=== PATIENT | male | born 1940 ===

== ENCOUNTER 2018-04-14 09:53 | Inpatient (IN) | payer MEDICARE ==
[2018-04-14 10:04] VITALS: BMI 19.2
[2018-04-14] MEDS ORDERED: Sodium Chloride 0.9% 1,000 ML IV ONE ×5 (10:06→18:55)
[2018-04-14] MEDS ORDERED: Pantoprazole 80 MG in Sodium Chloride 0.9% 100 ML IV STA (10:06)
--- NOTE | 2018-04-14 10:11 | C.PDOC ---
History Of Present Illness 77 y/o M p/w rectal bleeding. Patient BIBEMS with generalized weakness, apparently since this morning, was complaining of abdominal pain last night and took laxative and had bowel movements with blood. Patient is lethargic but answers questions appropriately. Full HPI/ROS unobtainable due to patient's condition. Time Seen by Provider: 04/14/18 10:03 Chief Complaint (Nursing): Altered Mental Status Past Medical History Vital Signs: Last Vital Signs Temp 99.8 F H 04/14/18 10:04 Pulse 119 H 04/14/18 10:04 Resp 15 04/14/18 10:04 BP 155/90 H 04/14/18 10:04 Pulse Ox 100 04/14/18 10:04 - Medical History PMH: Back Problems, HTN, Hypercholesterolemia, Hyperlipidemia, Obstructive Bowel, Chronic Pain (back and neck) Denies: Chronic Kidney Disease Surgical History: Appendectomy Family History: States: Unknown Family Hx - Social History Hx Tobacco Use: No Hx Alcohol Use: No Hx Substance Use: No - Immunization History Hx Tetanus Toxoid Vaccination: No Hx Influenza Vaccination: Yes Hx Pneumococcal Vaccination: No Review Of Systems Except As Marked, All Systems Reviewed And Found Negative. Constitutional: Negative for: Fever Cardiovascular: Negative for: Chest Pain Physical Exam - Physical Exam Additional Physical Exam Comments: Gen: Generally weak Head: NC/AT Eyes: PERRL ENT: MMM Neck: Supple Chest: No tenderness CV: Tachycardic Lungs: CTA b/l Abd: Umbilical hernia. No tenderness Back: No midline tenderness Rectal: Guaiac positive black stool Extremities: No edema Skin: No rash Neuro: Lethargic but awake, answers questions appropriately. No focal deficit. ED Course And Treatment - Laboratory Results Result Diagrams: 04/14/18 10:31 04/14/18 10:31 O2 Sat by Pulse Oximetry: 100 Medical Decision Making Medical Decision Making: EKG Sinus rhythm, 118 bpm, no ST elevations. PVCs. CT abd/pelvis with IV contrast IMPRESSION: Evaluation of the bowel is limited in the absence of oral contrast. Moderate dil atation of fluid-filled stomach and proximal and mid small bowel loops. The distal small bowel loops are decompressed. Findings are nonspecific and could be related to developing acute small bowel obstruction or nonspecific acute infectious/inflammatory enteritis. Colonic diverticulosis without CT evidence for acute diverticulitis. HR improving. Dr. Khan accepts patient for GI bleed, will likely require blood transfusion. Disposition Discussed With : Odalys Khan - Disposition Disposition: HOSPITALIZED Disposition Time: 12:26 Condition: GUARDED Forms: [facility] ([place]) - Clinical Impression Clinical Impression: GI bleed
[2018-04-14 10:42] LABS: BASO % 0.3 % (0.0-2.0); HEMOGLOBIN 8.4 g/dL (12.0-18.0); LYMPH % 7.8 % (20.0-40.0); MEAN CELL VOLUME 97.6 fL (80.0-94.0); MEAN CORPUSCULAR HEMOGLOBIN 32.4 pg (27.0-31.0); MEAN CORPUSCULAR HGB CONC 33.2 g/dL (33.0-37.0); MEAN PLATELET VOLUME 7.4 fL (7.2-11.7); MONO # 0.6 K/uL (0.0-0.8); MONO % 4.7 % (0.0-10.0); NEUT # 11.3 K/uL (1.8-7.0); NEUT % 87.2 % (50.0-75.0); PLATELET COUNT 290 K/uL (130-400); RBC 2.58 Mil/uL (4.40-5.90); RED CELL DISTRIBUTION WIDTH 12.9 % (11.5-14.5); WHITE BLOOD COUNT 12.9 K/uL (4.8-10.8)
[2018-04-14 10:50] LABS: INR 1.3; PROTHROMBIN TIME 14.2 SECONDS (9.7-12.2)
[2018-04-14 10:56] LABS: SQUAMOUS EPITHIAL < 1 /hpf (0-5); URINE BILIRUBIN NEGATIVE (NEGATIVE); URINE BLOOD NEGATIVE (NEGATIVE); URINE CLARITY Clear (Clear); URINE COLOR Straw (YELLOW); URINE GLUCOSE (UA) NORMAL (Normal); URINE LEUKOCYTE ESTERASE NEG Leu/uL (Negative); URINE PROTEIN NEGATIVE (NEGATIVE); URINE UROBILINOGEN NORMAL mg/dL (0.2-1.0)
[2018-04-14 11:13] LABS: ALB/GLOB RATIO 1.2 (1.0-2.1); ALT/SGPT 21 U/L (21-72); AST/SGOT 26 U/L (17-59); BLOOD UREA NITROGEN 61 mg/dL (9-20); GFR NON-AFRICAN AMERICAN > 60; LIPASE 61 U/L (23-300)
[2018-04-14 11:25] LABS: LYMPHOCYTE 8 % (20-40); MONOCYTE 2 % (0-10); NEUTROPHIL 90 % (50-75); TOTAL CELLS COUNTED 100
[2018-04-14 11:26] LABS: PLATELET ESTIMATE NORMAL (NORMAL)
[2018-04-14 11:28] LABS: HYPOCHROMIC SLIGHT; POLYCHROMIC SLIGHT
[2018-04-14] MEDS ORDERED: Iodixanol 320 MG/ML 100 ML BOTTLE IV ONE (11:56)
--- NOTE | 2018-04-14 13:21 | CT ---
Date of service: 04/14/2018 PROCEDURE: CT Abdomen and Pelvis with contrast HISTORY: GI Bleeding COMPARISON: 12/06/2012 TECHNIQUE: CT scan of the abdomen and pelvis was performed after administration of intravenous contrast. Oral contrast was not administered. Coronal and sagittal reformatted images were obtained. Contrast dose: 100 mL Visipaque 320 Radiation dose: Total exam DLP = 763.82 mGy-cm. This CT exam was performed using one or more of the following dose reduction techniques: Automated exposure control, adjustment of the mA and/or kV according to patient size, and/or use of iterative reconstruction technique. FINDINGS: LOWER THORAX: The visualized lungs are clear. LIVER: Normal in size with homogeneous enhancement. No gross lesion or ductal dilatation. GALLBLADDER AND BILE DUCTS: Well distended. No calcified gallstones, wall thickening or pericholecystic fluid. PANCREAS: Normal in size with homogeneous enhancement. 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 No gross lesion or ductal dilatation. SPLEEN: Normal in size and appearance. For ADRENALS: No discrete nodule. KIDNEYS AND URETERS: Normal in size with homogeneous enhancement. Small low-attenuation lesions in the kidneys are too small to characterize by CT criteria. There is a cortical scar in the right lower pole. No hydronephrosis. No solid mass. VASCULATURE: No aortic aneurysm. Atherosclerotic aortoiliac calcifications and mural plaques are present. BOWEL: Evaluation of the bowel is limited in the absence of oral contrast. There is a fluid-filled distended stomach. There is moderate dilatation of fluid-filled proximal and mid small bowel loops. The distal small bowel loops are decompressed. The colon is essentially decompressed. There are extensive colonic diverticula without CT evidence for acute diverticulitis. APPENDIX: Normal appendix. PERITONEUM: No free fluid. No free air. LYMPH NODES: No enlarged lymph nodes. BLADDER: Well distended and normal in appearance. REPRODUCTIVE: The prostate gland is normal in size with right posterior coarse calcifications. BONES: No acute fracture. Within normal limits for the patient's age. OTHER FINDINGS: There is a small right posterior Bochdalek hernia IMPRESSION: Evaluation of the bowel is limited in the absence of oral contrast. Moderate dilatation of fluid-filled stomach and proximal and mid small bowel loops. The distal small bowel loops are decompressed. Findings are nonspecific and could be related to developing acute small bowel obstruction or nonspecific acute infectious/inflammatory enteritis. Colonic diverticulosis without CT evidence for acute diverticulitis.
--- NOTE | 2018-04-14 14:37 | RAD ---
Date of service: 04/14/2018 PROCEDURE: CHEST RADIOGRAPH, 1 VIEW HISTORY: GI Bleeding COMPARISON: 08/31/2016 FINDINGS: LUNGS: The lungs are well inflated and clear. PLEURA: No pneumothorax or pleural effusion. CARDIOVASCULAR: The heart is normal in size. No aortic atherosclerotic calcifications present. OSSEOUS STRUCTURES: Within normal limits for the patient's age. VISUALIZED UPPER ABDOMEN: Normal. OTHER FINDINGS: None. IMPRESSION: No active pulmonary disease.
--- NOTE | 2018-04-14 16:03 | CP.PCM.PN ---
Subjective - Date & Time of Evaluation Date of Evaluation: 04/14/18 Time of Evaluation: 03:50 - Subjective Subjective: I spoke with patient's daughter. She reports he has chronic constipation, prior history of gi bleeding ulcer, he required emergent surgery [facility] [place], [place] 4 years ago, cervical fusion, and lumbar stenosis. Patient is chronically on pain medications but denies NSAIDs; he had stopped Motrin 800mg 4 years ago. Patient does have pain management doctor as outpatient. Patient's primary Reisner. Patient had refused to go the hospital. He had called the niece, reports he had been bleeding all night and his was unable to call. She reports he was fading in and out. Niece called 911, accompanied the patient, and brought to the hospital. 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 Hardin, Dr. Best: GI General: lethargic, Alert, awake HEENT: no dentures. clinically dry Chest: CTA b/l no Abdomen: soft, tender to palpation, diffuse pain, pulsatile mass, visible hernia, nondistended Rectal; Visible black stool Extremities: palpable pulses, no edema, no cyanosis, no clubbing Objective - Vital Signs/Intake and Output Vital Signs (last 24 hours): Temp Pulse Resp BP Pulse Ox 97.1 F L 114 H 21 171/83 H 98 04/14/18 14:38 04/14/18 14:38 04/14/18 14:38 04/14/18 14:38 04/14/18 14:38 Intake and Output: 04/14/18 04/14/18 06:59 18:59 Intake Total 1100 Output Total 900 Balance 200 - Medications Medications: Current Medications Sodium Chloride (Sodium Chloride 0.9%) 1,000 mls @ 1,000 mls/hr IV .Q1H ONE Stop: 04/14/18 16:23 Pantoprazole Sodium 80 mg/ (Sodium Chloride) 100 mls @ 10 mls/hr IVPB .Q10H RALF - Labs Labs: 04/14/18 10:31 04/14/18 10:31 PT 14.2 SECONDS (9.7-12.2) H 04/14/18 10:31 INR 1.3 04/14/18 10:31 APTT 31 SECONDS (21-34) 04/14/18 10:31 - Constitutional Appears: In Acute Distress, Unkempt, Agitated, Confused - Head Exam Head Exam: NORMAL INSPECTION - Eye Exam Eye Exam: EOMI - ENT Exam ENT Exam: Mucous Membranes Dry - Respiratory Exam Respiratory Exam: Clear to Ausculation Bilateral, NORMAL BREATHING PATTERN. absent: Rales, Rhonchi, Wheezes - Cardiovascular Exam Cardiovascular Exam: Tachycardia, +S1, +S2 - GI/Abdominal Exam GI & Abdominal Exam: Guarding, Soft, Normal Bowel Sounds, Pulsatile Mass, Rebound. absent: Distended, Rigid - Extremities Exam Extremities Exam: absent: Pedal Edema, Tenderness - Neurological Exam Neurological Exam: Alert, Awake - Psychiatric Exam Psychiatric exam: Agitated, Anxious - Skin Skin Exam: Normal Color, Warm Assessment and Plan (1) GI bleed Status: Acute (2) Prophylactic measure Status: Acute
[2018-04-14 16:28] LABS: VENOUS BLOOD GAS BASE EXCESS -3.3 mmol/L (0.0-2.0); VENOUS BLOOD GAS PCO2 30 mmHg (40-60); VENOUS BLOOD GAS PO2 31 mm/Hg (30-55); VENOUS BLOOD PH 7.43 (7.32-7.43)
[2018-04-14 16:34] LABS: HEMOGLOBIN 7.9 g/dL (12.0-18.0); MEAN CELL VOLUME 96.7 fL (80.0-94.0); MEAN CORPUSCULAR HEMOGLOBIN 31.4 pg (27.0-31.0); MEAN CORPUSCULAR HGB CONC 32.5 g/dL (33.0-37.0); MEAN PLATELET VOLUME 7.6 fL (7.2-11.7); RBC 2.52 Mil/uL (4.40-5.90); RED CELL DISTRIBUTION WIDTH 13.2 % (11.5-14.5); WHITE BLOOD COUNT 15.7 K/uL (4.8-10.8)
--- NOTE | 2018-04-14 16:48 | CP.PCM.HP ---
<Bebe Lemos - Last Filed: 04/14/18 17:17> History of Present Illness - History of Present Illness History of Present Illness: PGY-1 Medicine History and Physical for Dr. Ward's service CC: Bloody bowel movements and diffuse pain in joints/bones HPI: Patient is a 77 yo male w/ PMH hernia, gi bleed- 4 years, cervical fusion, chronic constipation secondary pain, high cholesterol is admitted to hospital for black colored bowel movements. 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 Patient states that he had a similar episode 4 years ago where he required emergency [place] [facility] Patient states he takes no aspirin/NSAIDS at home since his procedure. During interview, patient was in severe pain which limited history taking. Much of the information was provided by daughter and chart review. 12 point ROS not obtained as patient was in severe pain and very lethargic to awaken. 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 Hardin, Dr. Best: GI Code: Full Code Present on Admission - Present on Admission Any Indicators Present on Admission: No Review of Systems - Review of Systems Review of Systems: 12 point ROS obtained and not noted in HPI Past Patient History - Infectious Disease Hx of Infectious Diseases: None - Past Medical History & Family History Past Medical History?: Yes - Past Social History Smoking Status: Current Some Days Smoker - CARDIAC Hx Hypercholesterolemia: Yes Hx Hypertension: Yes - PULMONARY Hx Respiratory Disorders: No - NEUROLOGICAL Hx Neurological Disorder: No - HEENT Hx HEENT Problems: No - RENAL Hx Chronic Kidney Disease: No - ENDOCRINE/METABOLIC Hx Endocrine Disorders: No - HEMATOLOGICAL/ONCOLOGICAL Hx Blood Disorders: No - INTEGUMENTARY Hx Dermatological Problems: No - MUSCULOSKELETAL/RHEUMATOLOGICAL Hx Musculoskeletal Disorders: No - GASTROINTESTINAL Other/Comment: chronic constipation - GENITOURINARY/GYNECOLOGICAL Hx Genitourinary Disorders: No - PSYCHIATRIC Hx Substance Use: No - SURGICAL HISTORY Hx Appendectomy: Yes - ANESTHESIA Hx Anesthesia: Yes Hx Anesthesia Reactions: No Hx Malignant Hyperthermia: No Meds Allergies/Adverse Reactions: Allergies Allergy/AdvReac Type Severity Reaction Status Date / Time No Known Allergies Allergy Verified 04/14/18 10:06 Physical Exam - Constitutional Appears: In Acute Distress Additional comments: lethargic - Head Exam Head Exam: NORMAL INSPECTION, NORMOCEPHALIC - Eye Exam Eye Exam: EOMI, Normal appearance. absent: Nystagmus, Scleral icterus - ENT Exam ENT Exam: Mucous Membranes Dry - Respiratory Exam Respiratory Exam: Clear to Auscultation Bilateral, NORMAL BREATHING PATTERN. absent: Decreased Breath Sounds, Rales, Rhonchi, Wheezes - Cardiovascular Exam Cardiovascular Exam: Tachycardia, REGULAR RHYTHM, +S1, +S2 - GI/Abdominal Exam GI & Abdominal Exam: Normal Bowel Sounds, Soft, Tenderness. absent: Distended, Firm, Guarding - Extremities Exam Extremities exam: Positive for: normal inspection. Negative for: calf tenderness, pedal edema - Back Exam Back exam: NORMAL INSPECTION. absent: CVA tenderness (L), CVA tenderness (R) - Neurological Exam Neurological exam: Alert, Oriented x3 - Psychiatric Exam Psychiatric exam: Normal Affect, Normal Mood - Skin Skin Exam: Intact, Normal Color Results - Vital Signs Recent Vital Signs: Last Vital Signs Temp 97.1 F L 04/14/18 14:38 Pulse 114 H 04/14/18 14:38 Resp 21 04/14/18 14:38 BP 171/83 H 04/14/18 14:38 Pulse Ox 98 04/14/18 14:38 - Labs Result Diagrams: 04/14/18 16:31 04/14/18 10:31 Labs: Laboratory Results - last 24 hr 04/14/18 04/14/18 04/14/18 09:56 10:31 10:31 WBC 12.9 H RBC 2.58 L Hgb 8.4 L Hct 25.2 L MCV 97.6 H D MCH 32.4 H MCHC 33.2 RDW 12.9 Plt Count 290 D MPV 7.4 Neut % (Auto) 87.2 H Lymph % (Auto) 7.8 L Rhea % (Auto) 4.7 Eos % (Auto) 0.0 Baso % (Auto) 0.3 Neut # (Auto) 11.3 H Lymph # (Auto) 1.0 Rhea # (Auto) 0.6 Eos # (Auto) 0.0 Baso # (Auto) 0.0 Neutrophils % (Manual) 90 H Lymphocytes % (Manual) 8 L Monocytes % (Manual) 2 Platelet Estimate Normal Polychromasia Slight Hypochromasia (manual) Slight PT 14.2 H INR 1.3 APTT 31 pO2 VBG pH VBG pCO2 VBG HCO3 VBG Total CO2 VBG O2 Sat (Calc) VBG Base Excess VBG Potassium Glucose Lactate Crit Value Called To Crit Value Called By Crit Value Read Back Blood Gas Notified Time Sodium Potassium Chloride Carbon Dioxide Anion Gap BUN Creatinine Est GFR ( Amer) Est GFR (Non-Af Amer) POC Glucose (mg/dL) 148 H Random Glucose Calcium Total Bilirubin AST ALT Alkaline Phosphatase Total Protein Albumin Globulin Albumin/Globulin Ratio Lipase Venous Blood Potassium Urine Color Urine Clarity Urine pH Ur Specific Miller Urine Protein Urine Glucose (UA) Urine Ketones Urine Blood Urine Nitrate Urine Bilirubin Urine Urobilinogen Ur Leukocyte Esterase Urine WBC (Auto) Urine RBC (Auto) Ur Squamous Epith Cells Blood Type Antibody Screen 04/14/18 04/14/18 04/14/18 10:31 10:31 10:31 WBC RBC Hgb Hct MCV MCH MCHC RDW Plt Count MPV Neut % (Auto) Lymph % (Auto) Rhea % (Auto) Eos % (Auto) Baso % (Auto) Neut # (Auto) Lymph # (Auto) Rhea # (Auto) Eos # (Auto) Baso # (Auto) Neutrophils % (Manual) Lymphocytes % (Manual) Monocytes % (Manual) Platelet Estimate Polychromasia Hypochromasia (manual) PT INR APTT pO2 VBG pH VBG pCO2 VBG HCO3 VBG Total CO2 VBG O2 Sat (Calc) VBG Base Excess VBG Potassium Glucose Lactate Crit Value Called To Crit Value Called By Crit Value Read Back Blood Gas Notified Time Sodium 141 Potassium 3.9 Chloride 106 Carbon Dioxide 25 Anion Gap 14 BUN 61 H Creatinine 1.1 Est GFR ( Amer) > 60 Est GFR (Non-Af Amer) > 60 POC Glucose (mg/dL) Random Glucose 148 H Calcium 10.0 Total Bilirubin 0.5 AST 26 ALT 21 D Alkaline Phosphatase 52 Total Protein 7.2 Albumin 4.0 Globulin 3.2 Albumin/Globulin Ratio 1.2 Lipase 61 Venous Blood Potassium Urine Color Straw Urine Clarity Clear Urine pH 7.0 Ur Specific Miller 1.017 Urine Protein Negative Urine Glucose (UA) Normal Urine Ketones Negative Urine Blood Negative Urine Nitrate Negative Urine Bilirubin Negative Urine Urobilinogen Normal Ur Leukocyte Esterase Neg Urine WBC (Auto) < 1 Urine RBC (Auto) < 1 Ur Squamous Epith Cells < 1 Blood Type A POSITIVE Antibody Screen Negative 04/14/18 04/14/18 16:00 16:31 WBC 15.7 H RBC 2.52 L Hgb 7.9 L Hct 24.4 L MCV 96.7 H MCH 31.4 H MCHC 32.5 L RDW 13.2 Plt Count 291 MPV 7.6 Neut % (Auto) Lymph % (Auto) Rhea % (Auto) Eos % (Auto) Baso % (Auto) Neut # (Auto) Lymph # (Auto) Rhea # (Auto) Eos # (Auto) Baso # (Auto) Neutrophils % (Manual) Lymphocytes % (Manual) Monocytes % (Manual) Platelet Estimate Polychromasia Hypochromasia (manual) PT INR APTT pO2 31 VBG pH 7.43 VBG pCO2 30 L VBG HCO3 21.4 VBG Total CO2 20.8 L VBG O2 Sat (Calc) 65.6 H VBG Base Excess -3.3 L VBG Potassium 3.5 L Glucose 112 H Lactate 1.8 Crit Value Called To Nora bonilla Crit Value Called By Pauline rt Crit Value Read Back Y Blood Gas Notified Time 1618 Sodium 147.0 Potassium Chloride 120.0 H Carbon Dioxide Anion Gap BUN Creatinine Est GFR ( Amer) Est GFR (Non-Af Amer) POC Glucose (mg/dL) Random Glucose Calcium Total Bilirubin AST ALT Alkaline Phosphatase Total Protein Albumin Globulin Albumin/Globulin Ratio Lipase Venous Blood Potassium 3.5 L Urine Color Urine Clarity Urine pH Ur Specific Miller Urine Protein Urine Glucose (UA) Urine Ketones Urine Blood Urine Nitrate Urine Bilirubin Urine Urobilinogen Ur Leukocyte Esterase Urine WBC (Auto) Urine RBC (Auto) Ur Squamous Epith Cells Blood Type Antibody Screen Assessment & Plan - Assessment and Plan (Free Text) Assessment: Patient is a 77 yo male w/ PMH hernia, gi bleed- 4 years, cervical fusion, chronic constipation secondary pain, high cholesterol is admitted to hospital for black colored bowel movements. CT abd/pelvis shows diverticulosis and possible distended small bowel loops. Patient started on IV Protonix drip and transfer to ICU ordered. Of note patient hemoglobin is low and patient had black bowel movement. Plan: [facility] Consulted: Dr. Estephania newton appreciated Surgery Consulted: Dr. Eva joseph appreciated ICU consult: Dr. Renteria- patient will be accepted and transferred to ICU CT abd/pevlis w/ IV contrast (04/14/18): Moderate dilatation of fluid filled stomach/proximal and mid small bowel loops. Distal small bowel loops are decompressed. Non-specific and could not rule out SBO or nonspecific acute infectious/inflammatory enteritis. Colonic diverticulosis w/o CT evidence for acute diverticulitis. CXR on admission (04/14/18): no active disease Abdomen xray (04/14/18): no bowel obstruction or free air seen On Octeotride drip; On Protonix drip Anemia Likely 2/2 GI bleed Transfused 2 units of pRBC Iron studies pending PPX DVT ppx not indicated GI ppx: Protonix drip Bebe Lemos PGY-1 Medical Management discussed with Dr. Ward <Melony Ward V - Last Filed: 04/14/18 17:30> Results - Vital Signs Recent Vital Signs: Last Vital Signs Temp 97.1 F L 04/14/18 14:38 Pulse 114 H 04/14/18 14:38 Resp 21 04/14/18 14:38 BP 171/83 H 04/14/18 14:38 Pulse Ox 98 04/14/18 14:38 - Labs Result Diagrams: 04/14/18 16:31 04/14/18 10:31 Labs: Laboratory Results - last 24 hr 04/14/18 04/14/18 04/14/18 09:56 10:31 10:31 WBC 12.9 H RBC 2.58 L Hgb 8.4 L Hct 25.2 L MCV 97.6 H D MCH 32.4 H MCHC 33.2 RDW 12.9 Plt Count 290 D MPV 7.4 Neut % (Auto) 87.2 H Lymph % (Auto) 7.8 L Rhea % (Auto) 4.7 Eos % (Auto) 0.0 Baso % (Auto) 0.3 Neut # (Auto) 11.3 H Lymph # (Auto) 1.0 Rhea # (Auto) 0.6 Eos # (Auto) 0.0 Baso # (Auto) 0.0 Neutrophils % (Manual) 90 H Lymphocytes % (Manual) 8 L Monocytes % (Manual) 2 Platelet Estimate Normal Polychromasia Slight Hypochromasia (manual) Slight PT 14.2 H INR 1.3 APTT 31 pO2 VBG pH VBG pCO2 VBG HCO3 VBG Total CO2 VBG O2 Sat (Calc) VBG Base Excess VBG Potassium Glucose Lactate Crit Value Called To Crit Value Called By Crit Value Read Back Blood Gas Notified Time Sodium Potassium Chloride Carbon Dioxide Anion Gap BUN Creatinine Est GFR ( Amer) Est GFR (Non-Af Amer) POC Glucose (mg/dL) 148 H Random Glucose Calcium Total Bilirubin AST ALT Alkaline Phosphatase Total Protein Albumin Globulin Albumin/Globulin Ratio Lipase Venous Blood Potassium Urine Color Urine Clarity Urine pH Ur Specific Miller Urine Protein Urine Glucose (UA) Urine Ketones Urine Blood Urine Nitrate Urine Bilirubin Urine Urobilinogen Ur Leukocyte Esterase Urine WBC (Auto) Urine RBC (Auto) Ur Squamous Epith Cells Blood Type Antibody Screen 04/14/18 04/14/18 04/14/18 10:31 10:31 10:31 WBC RBC Hgb Hct MCV MCH MCHC RDW Plt Count MPV Neut % (Auto) Lymph % (Auto) Rhea % (Auto) Eos % (Auto) Baso % (Auto) Neut # (Auto) Lymph # (Auto) Rhea # (Auto) Eos # (Auto) Baso # (Auto) Neutrophils % (Manual) Lymphocytes % (Manual) Monocytes % (Manual) Platelet Estimate Polychromasia Hypochromasia (manual) PT INR APTT pO2 VBG pH VBG pCO2 VBG HCO3 VBG Total CO2 VBG O2 Sat (Calc) VBG Base Excess VBG Potassium Glucose Lactate Crit Value Called To Crit Value Called By Crit Value Read Back Blood Gas Notified Time Sodium 141 Potassium 3.9 Chloride 106 Carbon Dioxide 25 Anion Gap 14 BUN 61 H Creatinine 1.1 Est GFR ( Amer) > 60 Est GFR (Non-Af Amer) > 60 POC Glucose (mg/dL) Random Glucose 148 H Calcium 10.0 Total Bilirubin 0.5 AST 26 ALT 21 D Alkaline Phosphatase 52 Total Protein 7.2 Albumin 4.0 Globulin 3.2 Albumin/Globulin Ratio 1.2 Lipase 61 Venous Blood Potassium Urine Color Straw Urine Clarity Clear Urine pH 7.0 Ur Specific Miller 1.017 Urine Protein Negative Urine Glucose (UA) Normal Urine Ketones Negative Urine Blood Negative Urine Nitrate Negative Urine Bilirubin Negative Urine Urobilinogen Normal Ur Leukocyte Esterase Neg Urine WBC (Auto) < 1 Urine RBC (Auto) < 1 Ur Squamous Epith Cells < 1 Blood Type A POSITIVE Antibody Screen Negative 04/14/18 04/14/18 04/14/18 16:00 16:09 16:31 WBC 15.7 H RBC 2.52 L Hgb 7.9 L Hct 24.4 L MCV 96.7 H MCH 31.4 H MCHC 32.5 L RDW 13.2 Plt Count 291 MPV 7.6 Neut % (Auto) Lymph % (Auto) Rhea % (Auto) Eos % (Auto) Baso % (Auto) Neut # (Auto) Lymph # (Auto) Rhea # (Auto) Eos # (Auto) Baso # (Auto) Neutrophils % (Manual) Lymphocytes % (Manual) Monocytes % (Manual) Platelet Estimate Polychromasia Hypochromasia (manual) PT INR APTT pO2 31 VBG pH 7.43 VBG pCO2 30 L VBG HCO3 21.4 VBG Total CO2 20.8 L VBG O2 Sat (Calc) 65.6 H VBG Base Excess -3.3 L VBG Potassium 3.5 L Glucose 112 H Lactate 1.8 Crit Value Called To Nora rn Crit Value Called By Pauline rt Crit Value Read Back Y Blood Gas Notified Time 1618 Sodium 147.0 Potassium Chloride 120.0 H Carbon Dioxide Anion Gap BUN Creatinine Est GFR ( Amer) Est GFR (Non-Af Amer) POC Glucose (mg/dL) Random Glucose Calcium Total Bilirubin AST ALT Alkaline Phosphatase Total Protein Albumin Globulin Albumin/Globulin Ratio Lipase Venous Blood Potassium 3.5 L Urine Color Urine Clarity Urine pH Ur Specific Miller Urine Protein Urine Glucose (UA) Urine Ketones Urine Blood Urine Nitrate Urine Bilirubin Urine Urobilinogen Ur Leukocyte Esterase Urine WBC (Auto) Urine RBC (Auto) Ur Squamous Epith Cells Blood Type A POSITIVE Antibody Screen Negative Assessment & Plan (1) GI bleed Status: Acute (2) Prophylactic measure Status: Acute Attending/Attestation - Attestation I have personally seen and examined this patient.: Yes I have fully participated in the care of the patient.: Yes I have reviewed all pertinent clinical information: Yes Notes (Text): 77-year-old male past medical history of narcotic dependence, and cervical fusion, lumbar stenosis, chronic constipation, history of GI bleed requiring emergent X exploratory laparotomy 4 years ago comes in for an unspecified time of significant number of black tarry stools. I spoke with patient's daughter Cristine over the phone today. She had indicated to me that the patient had called his niece given that he was in tremendous pain and reported to have many black stools. The niece had accompanied him to the hospital. To the best her knowledge patient is not on any NSAIDs. Patient has been taking a laxative for chronic constipation secondary to his narcotic use for his chronic pain. Patient does see a pain management doctor on the outside but does not know the name off hand. 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 Patient noted at bedside very lethargic in acute distress asking for pain medication. Patient reports his GI doctor is Dr. Faith. Patient's GI doctor was called by me. Patient noted to have endoscopy about 5 years ago in 2013. Patient noted to have gastritis they believe. No prior history of diverticulitis. direct office does not have [facility] [place] records with him. Assessment/Plan 1. GI bleed, Hx of Gastritis, Hx of Hernia GI Dr. Faith on consult help appreciated. General surgery Dr. Rebollar lead consultant help appreciate Chest x-ray does not show any acute findings. CT abdomen pelvis with IV contrast only showing nonspecific findings. Some diverticulosis. Some hernias. Official report available in the chart. Patient blood work was repeated at bedside when on arrival 1 patient was brought to telemetry floor. VBG shock was collected lactic acid only 1.8. Pending repeat CBC CMP mag [place]. Patient was consented by my medical claims analyst for blood transfusion patient typed and crossed for at least 2 units of PRBC patient has not received blood at this point. Patient had received Protonix bolus in the emergency room patient is started on a Protonix drip. GI has also recommended for octreotide bolus as well as octreotide drip as well. Patient is notably very dehydrated as well patient received only 1 bolus of NS in the emergency room we have given him at least 2 boluses until blood and Protonix drip and octreotide drip are made available. N.p.o. 2 large IV bolus. 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 Smoker Advised to stop smoking Nicoderm 3. Narcotic dependence Patient reports he takes mscontin and perocet Patient takes pain management as outpatient 4. History of cervical fusion; history of lumbar stenosis 5. hx of chronic constipation secondary to narcotic use 6. Prophylactic measure SCDS b/l Chemical contraindication secondary to GI beed NGT tube Protonix drip Octreotide drip
--- NOTE | 2018-04-14 16:48 | RAD ---
Date of service: 04/14/2018 HISTORY: abdominal pain, distenstion COMPARISON: None available. FINDINGS: BOWEL: Single portable erect AP view is negative for any free air. The central visualized bowel loops do not appear distended. There is paucity apparently of left and right colonic gas in expected locations. No small or large bowel dilatation appreciated on this exam. BONES: Normal. OTHER FINDINGS: None. IMPRESSION: No bowel obstruction or free air seen.
--- NOTE | 2018-04-14 17:01 | CP.PCM.CON ---
<JimmieMorgan chris - Last Filed: 04/14/18 17:51> History of Present Illness - History of Present Illness History of Present Illness: PGY-1 ICU Consult note for Dr. Nery Renteria CC: Bloody bowel movements Patient is a 77 year old male with PMHx of umbilical hernia, GI bleed in 2013, cervical fusion, chronic constipation, and HLD presenting with melena. Patient states that he had multiple dark colored bowel movements since yesterday night. Patient states that he had a similar episode 4 years ago where he required emergency surgery at [facility] [place]. Patient denies taking aspirin or NSAIDS at home. In ED, Guaiac test was positive with black stool. During interview, patient was in severe pain which limited history taking. Much of the information was provided by daughter and chart review. 12 point ROS not obtained as patient was in severe pain and very lethargic to awaken. PMD: Dr. Hardin GI: Dr. Best PMHx: umbilical hernia, GI bleed in 2013, cervical fusion, chronic constipation, and HLD PSHx; Ex lap in [facility] [place] (2013) Smokin+ pack years smoker, former alcohol use Allergies: NKDA Family Hx: denies Code: Full Code Cristine Garcia (daughter): [phone] Review of Systems - Review of Systems All systems: reviewed and no additional remarkable complaints except Past Patient History - Infectious Disease Hx of Infectious Diseases: None - Past Medical History & Family History Past Medical History?: Yes - Past Social History Smoking Status: Current Some Days Smoker - CARDIAC Hx Hypercholesterolemia: Yes Hx Hypertension: Yes - PULMONARY Hx Respiratory Disorders: No - NEUROLOGICAL Hx Neurological Disorder: No - HEENT Hx HEENT Problems: No - RENAL Hx Chronic Kidney Disease: No - ENDOCRINE/METABOLIC Hx Endocrine Disorders: No - HEMATOLOGICAL/ONCOLOGICAL Hx Blood Disorders: No - INTEGUMENTARY Hx Dermatological Problems: No - MUSCULOSKELETAL/RHEUMATOLOGICAL Hx Musculoskeletal Disorders: No - GASTROINTESTINAL Other/Comment: chronic constipation - GENITOURINARY/GYNECOLOGICAL Hx Genitourinary Disorders: No - PSYCHIATRIC Hx Substance Use: No - SURGICAL HISTORY Hx Appendectomy: Yes - ANESTHESIA Hx Anesthesia: Yes Hx Anesthesia Reactions: No Hx Malignant Hyperthermia: No Meds Allergies/Adverse Reactions: Allergies Allergy/AdvReac Type Severity Reaction Status Date / Time No Known Allergies Allergy Verified 04/14/18 10:06 - Medications Medications: Current Medications Pantoprazole Sodium 80 mg/ (Sodium Chloride) 100 mls @ 10 mls/hr IVPB .Q10H RALF Physical Exam - Constitutional Appears: Other (Appears uncomfortable and lethargic) - Head Exam Head Exam: ATRAUMATIC, NORMOCEPHALIC - Eye Exam Eye Exam: EOMI, Normal appearance - ENT Exam ENT Exam: Mucous Membranes Dry - Respiratory Exam Respiratory Exam: Clear to Auscultation Bilateral. absent: Rales, Rhonchi, Wheezes - Cardiovascular Exam Cardiovascular Exam: Tachycardia, +S1, +S2. absent: Gallop, Rubs, Systolic Murmur - GI/Abdominal Exam GI & Abdominal Exam: Normal Bowel Sounds, Soft. absent: Distended, Guarding, Tenderness Additional comments: Umbilical hernia - Neurological Exam Neurological exam: Alert, Oriented x3 - Psychiatric Exam Psychiatric exam: Flat Affect - Skin Skin Exam: Dry, Intact, Normal Color, Warm Results - Vital Signs Recent Vital Signs: Last Vital Signs Temp 97.1 F L 04/14/18 14:38 Pulse 114 H 04/14/18 14:38 Resp 21 04/14/18 14:38 BP 171/83 H 04/14/18 14:38 Pulse Ox 98 04/14/18 14:38 - Labs Result Diagrams: 04/14/18 16:31 04/14/18 10:31 Labs: Laboratory Results - last 24 hr 04/14/18 04/14/18 04/14/18 09:56 10:31 10:31 WBC 12.9 H RBC 2.58 L Hgb 8.4 L Hct 25.2 L MCV 97.6 H D MCH 32.4 H MCHC 33.2 RDW 12.9 Plt Count 290 D MPV 7.4 Neut % (Auto) 87.2 H Lymph % (Auto) 7.8 L [place] % (Auto) 4.7 Eos % (Auto) 0.0 Baso % (Auto) 0.3 Neut # (Auto) 11.3 H Lymph # (Auto) 1.0 [place] # (Auto) 0.6 Eos # (Auto) 0.0 Baso # (Auto) 0.0 Neutrophils % (Manual) 90 H Lymphocytes % (Manual) 8 L Monocytes % (Manual) 2 Platelet Estimate Normal Polychromasia Slight Hypochromasia (manual) Slight PT 14.2 H INR 1.3 APTT 31 pO2 VBG pH VBG pCO2 VBG HCO3 VBG Total CO2 VBG O2 Sat (Calc) VBG Base Excess VBG Potassium Glucose Lactate Crit Value Called To Crit Value Called By Crit Value Read Back Blood Gas Notified Time Sodium Potassium Chloride Carbon Dioxide Anion Gap BUN Creatinine Est GFR ( Amer) Est GFR (Non-Af Amer) POC Glucose (mg/dL) 148 H Random Glucose Calcium Total Bilirubin AST ALT Alkaline Phosphatase Total Protein Albumin Globulin Albumin/Globulin Ratio Lipase Venous Blood Potassium Urine Color Urine Clarity Urine pH Ur Specific [place] Urine Protein Urine Glucose (UA) Urine Ketones Urine Blood Urine Nitrate Urine Bilirubin Urine Urobilinogen Ur Leukocyte Esterase Urine WBC (Auto) Urine RBC (Auto) Ur Squamous Epith Cells Blood Type Antibody Screen 04/14/18 04/14/18 04/14/18 10:31 10:31 10:31 WBC RBC Hgb Hct MCV MCH MCHC RDW Plt Count MPV Neut % (Auto) Lymph % (Auto) [place] % (Auto) Eos % (Auto) Baso % (Auto) Neut # (Auto) Lymph # (Auto) [place] # (Auto) Eos # (Auto) Baso # (Auto) Neutrophils % (Manual) Lymphocytes % (Manual) Monocytes % (Manual) Platelet Estimate Polychromasia Hypochromasia (manual) PT INR APTT pO2 VBG pH VBG pCO2 VBG HCO3 VBG Total CO2 VBG O2 Sat (Calc) VBG Base Excess VBG Potassium Glucose Lactate Crit Value Called To Crit Value Called By Crit Value Read Back Blood Gas Notified Time Sodium 141 Potassium 3.9 Chloride 106 Carbon Dioxide 25 Anion Gap 14 BUN 61 H Creatinine 1.1 Est GFR ( Amer) > 60 Est GFR (Non-Af Amer) > 60 POC Glucose (mg/dL) Random Glucose 148 H Calcium 10.0 Total Bilirubin 0.5 AST 26 ALT 21 D Alkaline Phosphatase 52 Total Protein 7.2 Albumin 4.0 Globulin 3.2 Albumin/Globulin Ratio 1.2 Lipase 61 Venous Blood Potassium Urine Color Straw Urine Clarity Clear Urine pH 7.0 Ur Specific [place] 1.017 Urine Protein Negative Urine Glucose (UA) Normal Urine Ketones Negative Urine Blood Negative Urine Nitrate Negative Urine Bilirubin Negative Urine Urobilinogen Normal Ur Leukocyte Esterase Neg Urine WBC (Auto) < 1 Urine RBC (Auto) < 1 Ur Squamous Epith Cells < 1 Blood Type A POSITIVE Antibody Screen Negative 04/14/18 04/14/18 16:00 16:31 WBC 15.7 H RBC 2.52 L Hgb 7.9 L Hct 24.4 L MCV 96.7 H MCH 31.4 H MCHC 32.5 L RDW 13.2 Plt Count 291 MPV 7.6 Neut % (Auto) Lymph % (Auto) [place] % (Auto) Eos % (Auto) Baso % (Auto) Neut # (Auto) Lymph # (Auto) [place] # (Auto) Eos # (Auto) Baso # (Auto) Neutrophils % (Manual) Lymphocytes % (Manual) Monocytes % (Manual) Platelet Estimate Polychromasia Hypochromasia (manual) PT INR APTT pO2 31 VBG pH 7.43 VBG pCO2 30 L VBG HCO3 21.4 VBG Total CO2 20.8 L VBG O2 Sat (Calc) 65.6 H VBG Base Excess -3.3 L VBG Potassium 3.5 L Glucose 112 H Lactate 1.8 Crit Value Called To Nora bonilla Crit Value Called By Pauline rt Crit Value Read Back Y Blood Gas Notified Time 1618 Sodium 147.0 Potassium Chloride 120.0 H Carbon Dioxide Anion Gap BUN Creatinine Est GFR ( Amer) Est GFR (Non-Af Amer) POC Glucose (mg/dL) Random Glucose Calcium Total Bilirubin AST ALT Alkaline Phosphatase Total Protein Albumin Globulin Albumin/Globulin Ratio Lipase Venous Blood Potassium 3.5 L Urine Color Urine Clarity Urine pH Ur Specific [place] Urine Protein Urine Glucose (UA) Urine Ketones Urine Blood Urine Nitrate Urine Bilirubin Urine Urobilinogen Ur Leukocyte Esterase Urine WBC (Auto) Urine RBC (Auto) Ur Squamous Epith Cells Blood Type Antibody Screen Assessment & Plan - Assessment and Plan (Free Text) Assessment: Patient is a 77 year old male with PMHx of umbilical hernia, GI bleed in 2013, cervical fusion, chronic constipation, and HLD presenting with melena. In ED, Guaiac test was positive with black stool. Plan: Neuro: - Patient is AAO X 3 Cardiovascular: Sinus tachycardia - EKG: Sinus tachycardia @ 118 bpm, occasional premature ventricular complexes - Esmolol drip Pulm: - CXR (04/14): No active pulmonary disease - No acute issues GI: Melena - CT Abdomen (04/14): Moderate dilatation of fluid-filled stomach and proximal and mid small bowel loops. The distal small bowel loops are decompressed. Findings are nonspecific and could be related to developing acute small bowel obstruction or nonspecific acute infectious/inflammatory enteritis. Colonic diverticulosis without CT evidence for acute diverticulitis. - Abd Xray (04/14): No bowel obstruction or free air seen - GI consulted, Dr. Best - Surgery consulted, Dr. Rebollar - Type and screen - Transfuse 1 unit of PRBC - Octreotide drip - Protonix drip - Esmolol drip - 2 X 1L NS bolus given Renal: - No acute issues Heme: Acute anemia - Likely 2/2 upper GI bleed - Hb: 8.4 --> 7.9 - Type and screen - Transfuse 1 unit of PRBC - BUN/Cr: 61/1.1 - Fibrinogen: f/u ID: Leukocytosis - WBC: 12.9 --> 15.7 - Lactate: 1.8 - UA: negative - Rocephin 1g IV QD (Started on 04/14) - Blood cx: f/u - Urine cx: f/u Prophylaxis: - Protonix drip - VTE prophylaxis contraindicated 2/2 GI bleed Case discussed with Dr Nery Young, PGY-1 <Ingris Renteria - Last Filed: 04/15/18 14:44> Meds - Medications Medications: Current Medications Docusate Sodium (Colace) 100 mg PO TID [facility] Last Admin: 04/15/18 13:17 Dose: Not Given Hydromorphone HCl (Dilaudid) 1 mg IVP STAT STA Stop: 04/15/18 14:43 Ceftriaxone Sodium 1 gm/ (Sodium Chloride) 100 mls @ 100 mls/hr IVPB Q24H [facility]; Protocol Last Admin: 04/14/18 19:30 Dose: 100 mls/hr Dextrose/Sodium Chloride (Dextrose 5%/0.9% Ns 1000 Ml) 1,000 mls @ 75 mls/hr IV .[id number] ONE Stop: 04/15/18 22:06 Last Admin: 04/15/18 09:09 Dose: 75 mls/hr Influenza Virus Vaccine (Fluzone Quad [id number]) 60 mcg IM .ONCE ONE Stop: 04/17/18 10:01 Morphine Sulfate (Morphine Extended Release Tab) 30 mg PO Q12 RALF Last Admin: 04/15/18 09:11 Dose: 30 mg Nicotine (Nicoderm Cq) 1 patch TD DAILY [facility] Last Admin: 04/15/18 10:56 Dose: Not Given Oxycodone/Acetaminophen (Percocet 5/325 Mg Tab) 1 tab PO Q6H PRN PRN Reason: Pain, moderate (4-7) Stop: 04/18/18 08:54 Last Admin: 04/15/18 09:24 Dose: 1 tab Pantoprazole Sodium (Protonix Inj) 40 mg IVP Q12H [facility] Last Admin: 04/15/18 09:12 Dose: 40 mg Pneumococcal Polyvalent Vaccine (Pneumovax 23 Vaccine) 0.5 ml IM .ONCE ONE Stop: 04/17/18 10:01 Sennosides (Senokot Tab) 8.6 mg PO DAILY [facility] Last Admin: 04/15/18 09:12 Dose: 8.6 mg Results - Vital Signs Recent Vital Signs: Last Vital Signs Temp 97.7 F 04/15/18 08:10 Pulse 101 H 04/15/18 12:16 Resp 18 04/15/18 12:16 BP 190/82 H 04/15/18 12:16 Pulse Ox 100 04/15/18 12:16 - Labs Result Diagrams: 04/15/18 07:10 04/15/18 06:22 Labs: Laboratory Results - last 24 hr 04/14/18 04/14/18 04/14/18 16:00 16:09 16:31 WBC 15.7 H RBC 2.52 L Hgb 7.9 L Hct 24.4 L MCV 96.7 H MCH 31.4 H MCHC 32.5 L RDW 13.2 Plt Count 291 MPV 7.6 Neut % (Auto) Lymph % (Auto) [place] % (Auto) Eos % (Auto) Baso % (Auto) Neut # (Auto) Lymph # (Auto) [place] # (Auto) Eos # (Auto) Baso # (Auto) Neutrophils % (Manual) Lymphocytes % (Manual) Monocytes % (Manual) Platelet Estimate Anisocytosis (manual) [place] Cells PT INR APTT Fibrinogen pO2 31 VBG pH 7.43 VBG pCO2 30 L VBG HCO3 21.4 VBG Total CO2 20.8 L VBG O2 Sat (Calc) 65.6 H VBG Base Excess -3.3 L VBG Potassium 3.5 L Sodium 147.0 Chloride 120.0 H Glucose 112 H Lactate 1.8 Crit Value Called To Nora rn Crit Value Called By Pauline rt Crit Value Read Back Y Blood Gas Notified Time 1618 Potassium Carbon Dioxide Anion Gap BUN Creatinine Est GFR ( Amer) Est GFR (Non-Af Amer) POC Glucose (mg/dL) Random Glucose Lactic Acid Calcium Phosphorus Magnesium Ferritin Total Bilirubin AST ALT Alkaline Phosphatase Total Protein Albumin Globulin Albumin/Globulin Ratio Venous Blood Potassium 3.5 L Urine Color Urine Clarity Urine pH Ur Specific [place] Urine Protein Urine Glucose (UA) Urine Ketones Urine Blood Urine Nitrate Urine Bilirubin Urine Urobilinogen Ur Leukocyte Esterase Urine WBC (Auto) Urine RBC (Auto) Urine Bacteria Urine Opiates Screen Urine Methadone Screen Ur Barbiturates Screen Ur Phencyclidine Scrn Ur Amphetamines Screen U Benzodiazepines Scrn U Oth Cocaine Metabols U Cannabinoids Screen Blood Type A POSITIVE Antibody Screen Negative 04/14/18 04/14/18 04/14/18 16:55 17:41 18:19 WBC RBC Hgb Hct MCV MCH MCHC RDW Plt Count MPV Neut % (Auto) Lymph % (Auto) [place] % (Auto) Eos % (Auto) Baso % (Auto) Neut # (Auto) Lymph # (Auto) [place] # (Auto) Eos # (Auto) Baso # (Auto) Neutrophils % (Manual) Lymphocytes % (Manual) Monocytes % (Manual) Platelet Estimate Anisocytosis (manual) [place] Cells PT INR APTT Fibrinogen pO2 VBG pH VBG pCO2 VBG HCO3 VBG Total CO2 VBG O2 Sat (Calc) VBG Base Excess VBG Potassium Sodium 142 Chloride 111 H Glucose Lactate Crit Value Called To Crit Value Called By Crit Value Read Back Blood Gas Notified Time Potassium 3.4 L Carbon Dioxide 18 L Anion Gap 16 BUN 51 H Creatinine 0.9 Est GFR ( Amer) > 60 Est GFR (Non-Af Amer) > 60 POC Glucose (mg/dL) 104 Random Glucose 108 Lactic Acid Calcium 9.4 Phosphorus 2.1 L Magnesium 2.0 Ferritin 31.1 Total Bilirubin 0.5 AST 39 ALT 20 L Alkaline Phosphatase 58 Total Protein 6.8 Albumin 3.7 Globulin 3.1 Albumin/Globulin Ratio 1.2 Venous Blood Potassium Urine Color Urine Clarity Urine pH Ur Specific [place] Urine Protein Urine Glucose (UA) Urine Ketones Urine Blood Urine Nitrate Urine Bilirubin Urine Urobilinogen Ur Leukocyte Esterase Urine WBC (Auto) Urine RBC (Auto) Urine Bacteria Urine Opiates Screen Urine Methadone Screen Ur Barbiturates Screen Ur Phencyclidine Scrn Ur Amphetamines Screen U Benzodiazepines Scrn U Oth Cocaine Metabols U Cannabinoids Screen Blood Type Antibody Screen 04/14/18 04/14/18 04/14/18 19:04 22:24 22:24 WBC RBC Hgb Hct MCV MCH MCHC RDW Plt Count MPV Neut % (Auto) Lymph % (Auto) [place] % (Auto) Eos % (Auto) Baso % (Auto) Neut # (Auto) Lymph # (Auto) [place] # (Auto) Eos # (Auto) Baso # (Auto) Neutrophils % (Manual) Lymphocytes % (Manual) Monocytes % (Manual) Platelet Estimate Anisocytosis (manual) [place] Cells PT 13.6 H INR 1.2 APTT 29 Fibrinogen 259 pO2 VBG pH VBG pCO2 VBG HCO3 VBG Total CO2 VBG O2 Sat (Calc) VBG Base Excess VBG Potassium Sodium Chloride Glucose Lactate Crit Value Called To Crit Value Called By Crit Value Read Back Blood Gas Notified Time Potassium Carbon Dioxide Anion Gap BUN Creatinine Est GFR ( Amer) Est GFR (Non-Af Amer) POC Glucose (mg/dL) Random Glucose Lactic Acid 1.2 Calcium Phosphorus Magnesium Ferritin Total Bilirubin AST ALT Alkaline Phosphatase Total Protein Albumin Globulin Albumin/Globulin Ratio Venous Blood Potassium Urine Color Straw Urine Clarity Clear Urine pH 6.0 Ur Specific [place] 1.013 Urine Protein Negative Urine Glucose (UA) Normal Urine Ketones Negative Urine Blood Negative Urine Nitrate Negative Urine Bilirubin Negative Urine Urobilinogen Normal Ur Leukocyte Esterase Neg Urine WBC (Auto) < 1 Urine RBC (Auto) < 1 Urine Bacteria Rare Urine Opiates Screen Urine Methadone Screen Ur Barbiturates Screen Ur Phencyclidine Scrn Ur Amphetamines Screen U Benzodiazepines Scrn U Oth Cocaine Metabols U Cannabinoids Screen Blood Type Antibody Screen 04/14/18 04/15/18 04/15/18 22:26 00:46 01:48 WBC 19.9 H RBC 3.28 L Hgb 10.2 L D Hct 30.6 L MCV 93.2 D MCH 31.0 MCHC 33.2 RDW 16.5 H Plt Count 220 MPV 7.4 Neut % (Auto) 84.4 H Lymph % (Auto) 7.6 L [place] % (Auto) 7.6 Eos % (Auto) 0.0 Baso % (Auto) 0.4 Neut # (Auto) 16.8 H Lymph # (Auto) 1.5 [place] # (Auto) 1.5 H Eos # (Auto) 0.0 Baso # (Auto) 0.1 Neutrophils % (Manual) 90 H Lymphocytes % (Manual) 6 L Monocytes % (Manual) 4 Platelet Estimate Normal Anisocytosis (manual) Slight [place] Cells Slight PT INR APTT Fibrinogen pO2 VBG pH VBG pCO2 VBG HCO3 VBG Total CO2 VBG O2 Sat (Calc) VBG Base Excess VBG Potassium Sodium Chloride Glucose Lactate Crit Value Called To Crit Value Called By Crit Value Read Back Blood Gas Notified Time Potassium Carbon Dioxide Anion Gap BUN Creatinine Est GFR ( Amer) Est GFR (Non-Af Amer) POC Glucose (mg/dL) 148 H Random Glucose Lactic Acid Calcium Phosphorus Magnesium Ferritin Total Bilirubin AST ALT Alkaline Phosphatase Total Protein Albumin Globulin Albumin/Globulin Ratio Venous Blood Potassium Urine Color Urine Clarity Urine pH Ur Specific [place] Urine Protein Urine Glucose (UA) Urine Ketones Urine Blood Urine Nitrate Urine Bilirubin Urine Urobilinogen Ur Leukocyte Esterase Urine WBC (Auto) Urine RBC (Auto) Urine Bacteria Urine Opiates Screen Positive H Urine Methadone Screen Negative Ur Barbiturates Screen Negative Ur Phencyclidine Scrn Negative Ur Amphetamines Screen Negative U Benzodiazepines Scrn Negative U Oth Cocaine Metabols Negative U Cannabinoids Screen Negative Blood Type Antibody Screen 04/15/18 04/15/18 04/15/18 05:36 06:22 07:10 WBC 21.7 H RBC 3.52 L Hgb 10.6 L Hct 31.8 L MCV 90.2 D MCH 30.1 MCHC 33.4 RDW 16.9 H Plt Count 223 MPV 7.5 Neut % (Auto) Lymph % (Auto) [place] % (Auto) Eos % (Auto) Baso % (Auto) Neut # (Auto) Lymph # (Auto) [place] # (Auto) Eos # (Auto) Baso # (Auto) Neutrophils % (Manual) Lymphocytes % (Manual) Monocytes % (Manual) Platelet Estimate Anisocytosis (manual) [place] Cells PT INR APTT Fibrinogen pO2 VBG pH VBG pCO2 VBG HCO3 VBG Total CO2 VBG O2 Sat (Calc) VBG Base Excess VBG Potassium Sodium 142 Chloride 113 H Glucose Lactate Crit Value Called To Crit Value Called By Crit Value Read Back Blood Gas Notified Time Potassium 3.0 L Carbon Dioxide 17 L Anion Gap 15 BUN 31 H Creatinine 0.8 Est GFR ( Amer) > 60 Est GFR (Non-Af Amer) > 60 POC Glucose (mg/dL) 114 H Random Glucose 122 H Lactic Acid Calcium 8.4 L Phosphorus 3.2 Magnesium 1.6 Ferritin Total Bilirubin 0.7 AST 29 ALT 22 Alkaline Phosphatase 59 Total Protein 6.8 Albumin 3.7 Globulin 3.1 Albumin/Globulin Ratio 1.2 Venous Blood Potassium Urine Color Urine Clarity Urine pH Ur Specific [place] Urine Protein Urine Glucose (UA) Urine Ketones Urine Blood Urine Nitrate Urine Bilirubin Urine Urobilinogen Ur Leukocyte Esterase Urine WBC (Auto) Urine RBC (Auto) Urine Bacteria Urine Opiates Screen Urine Methadone Screen Ur Barbiturates Screen Ur Phencyclidine Scrn Ur Amphetamines Screen U Benzodiazepines Scrn U Oth Cocaine Metabols U Cannabinoids Screen Blood Type Antibody Screen Assessment & Plan - Assessment and Plan (Free Text) Plan: Patient seen and examined at bedside. PAtient with multipel black bowel movements. -Suspect upper Gi bleed: high BUN -continue to transfuse blood to keep hemodynamic stability -check and replace serial cbc, transfuse to keep hemodynamic stability -Gi eval -IV ppi and octreotide - Date & Time Date: 04/14/18 Time: 19:00
[2018-04-14] MEDS ORDERED: Esmolol 2,500 MG in Dextrose 5% In Water 240 ML IV SCH (17:45)
[2018-04-14 17:57] LABS: ALB/GLOB RATIO 1.2 (1.0-2.1); ALBUMIN 3.7 g/dL (3.5-5.0); ALT/SGPT 20 U/L (21-72); AST/SGOT 39 U/L (17-59); BLOOD UREA NITROGEN 51 mg/dL (9-20); CALCIUM 9.4 mg/dl (8.6-10.4); GFR NON-AFRICAN AMERICAN > 60
[2018-04-14] MEDS ORDERED: Esmolol 2,500 MG in Sodium Chloride 0.9% 250 ML IV SCH (18:15)
[2018-04-14] MEDS: Pantoprazole 80 MG in Sodium Chloride 0.9% 100 ML IVPB SCH (18:15)
[2018-04-14 18:31] LABS: FERRITIN 31.1 ng/mL
[2018-04-14 19:28] LABS: INR 1.2; PROTHROMBIN TIME 13.6 SECONDS (9.7-12.2)
--- NOTE | 2018-04-14 22:38 | CP.PCM.CON ---
History of Present Illness - History of Present Illness History of Present Illness: General Surgery Consult Re: mesenteric ischemia/GI bleed HPI: 77M admitted to hospital for black colored bowel movements. On Exam, pt was Difficult to arouse anddid not answer questions. H&P taken from EMR. Pt stated he had multiple dark bowel movements since yesterday night Had a similar episode 4 years ago where he required emergency surgery at [facility]. Patient stated he takes no aspirin/NSAIDS at home since his procedure. PMH: hernia, Hx GI bleed, cervical fusion, chronic constipation, HLD PSH: Ex lap SH:Current tobacco use, Former EtOH use, no drug use FH: noncontributory All: NKDA Meds: See MAR Review of Systems - Review of Systems Systems not reviewed;Unavailable: Altered Mental Status Past Patient History - Infectious Disease Hx of Infectious Diseases: None - Past Medical History & Family History Past Medical History?: Yes - Past Social History Smoking Status: Current Some Days Smoker - CARDIAC Hx Hypercholesterolemia: Yes Hx Hypertension: Yes - PULMONARY Hx Respiratory Disorders: No - NEUROLOGICAL Hx Neurological Disorder: No - HEENT Hx HEENT Problems: No - RENAL Hx Chronic Kidney Disease: No - ENDOCRINE/METABOLIC Hx Endocrine Disorders: No - HEMATOLOGICAL/ONCOLOGICAL Hx Blood Disorders: No - INTEGUMENTARY Hx Dermatological Problems: No - MUSCULOSKELETAL/RHEUMATOLOGICAL Hx Musculoskeletal Disorders: No - GASTROINTESTINAL Other/Comment: chronic constipation - GENITOURINARY/GYNECOLOGICAL Hx Genitourinary Disorders: No - PSYCHIATRIC Hx Substance Use: No - SURGICAL HISTORY Hx Appendectomy: Yes - ANESTHESIA Hx Anesthesia: Yes Hx Anesthesia Reactions: No Hx Malignant Hyperthermia: No Meds Allergies/Adverse Reactions: Allergies Allergy/AdvReac Type Severity Reaction Status Date / Time No Known Allergies Allergy Verified 04/14/18 10:06 - Medications Medications: Current Medications Pantoprazole Sodium 80 mg/ (Sodium Chloride) 100 mls @ 10 mls/hr IVPB .Q10H RALF Last Admin: 04/14/18 18:15 Dose: 10 mls/hr Octreotide Acetate 1,250 mcg/ (Sodium Chloride) 252.5 mls @ 10.1 mls/hr IV .Q24H RALF Last Admin: 04/14/18 18:38 Dose: 10.1 mls/hr Ceftriaxone Sodium 1 gm/ (Sodium Chloride) 100 mls @ 100 mls/hr IVPB Q24H RALF; Protocol Last Admin: 04/14/18 19:30 Dose: 100 mls/hr Esmolol HCl 2,500 mg/ Sodium (Chloride) 260 mls @ 17.35 mls/hr IV .Q15H RALF; Protocol Last Admin: 04/14/18 19:30 Dose: 50 mcg/kg/min, 17.35 mls/hr Nicotine (Nicoderm Cq) 1 patch TD DAILY RALF Last Admin: 04/14/18 18:21 Dose: 1 patch Physical Exam - Constitutional Appears: No Acute Distress, Chronically Ill - Head Exam Head Exam: ATRAUMATIC, NORMOCEPHALIC - Eye Exam Eye Exam: PERRL. absent: Conjunctival injection, Scleral icterus - ENT Exam ENT Exam: Mucous Membranes Dry Additional comments: trachea midline - Neck Exam Neck exam: Negative for: Lymphadenopathy, Tenderness - Respiratory Exam Respiratory Exam: NORMAL BREATHING PATTERN. absent: Respiratory Distress - Cardiovascular Exam Cardiovascular Exam: Tachycardia, +S1, +S2 - GI/Abdominal Exam GI & Abdominal Exam: Hernia, Soft. absent: Distended, Firm, Guarding, Mass, Rebound, Rigid, Tenderness Additional comments: well healed scars - Rectal Exam Rectal Exam: Deferred - Extremities Exam Extremities exam: Positive for: normal capillary refill. Negative for: calf tenderness, pedal edema - Back Exam Back exam: absent: CVA tenderness (L), CVA tenderness (R) - Neurological Exam Neurological exam: Altered - Skin Skin Exam: Dry, Warm Results - Vital Signs Recent Vital Signs: Last Vital Signs Temp 98 F 04/14/18 22:05 Pulse 99 H 04/14/18 22:05 Resp 18 04/14/18 22:05 BP 175/93 H 04/14/18 22:05 Pulse Ox 100 04/14/18 19:55 - Labs Result Diagrams: 04/14/18 16:31 04/14/18 17:41 Labs: Laboratory Results - last 24 hr 04/14/18 04/14/18 04/14/18 09:56 10:31 10:31 WBC 12.9 H RBC 2.58 L Hgb 8.4 L Hct 25.2 L MCV 97.6 H D MCH 32.4 H MCHC 33.2 RDW 12.9 Plt Count 290 D MPV 7.4 Neut % (Auto) 87.2 H Lymph % (Auto) 7.8 L [place] % (Auto) 4.7 Eos % (Auto) 0.0 Baso % (Auto) 0.3 Neut # (Auto) 11.3 H Lymph # (Auto) 1.0 [place] # (Auto) 0.6 Eos # (Auto) 0.0 Baso # (Auto) 0.0 Neutrophils % (Manual) 90 H Lymphocytes % (Manual) 8 L Monocytes % (Manual) 2 Platelet Estimate Normal Polychromasia Slight Hypochromasia (manual) Slight PT 14.2 H INR 1.3 APTT 31 Fibrinogen pO2 VBG pH VBG pCO2 VBG HCO3 VBG Total CO2 VBG O2 Sat (Calc) VBG Base Excess VBG Potassium Glucose Lactate Crit Value Called To Crit Value Called By Crit Value Read Back Blood Gas Notified Time Sodium Potassium Chloride Carbon Dioxide Anion Gap BUN Creatinine Est GFR ( Amer) Est GFR (Non-Af Amer) POC Glucose (mg/dL) 148 H Random Glucose Calcium Phosphorus Magnesium Ferritin Total Bilirubin AST ALT Alkaline Phosphatase Total Protein Albumin Globulin Albumin/Globulin Ratio Lipase Venous Blood Potassium Urine Color Urine Clarity Urine pH Ur Specific [place] Urine Protein Urine Glucose (UA) Urine Ketones Urine Blood Urine Nitrate Urine Bilirubin Urine Urobilinogen Ur Leukocyte Esterase Urine WBC (Auto) Urine RBC (Auto) Ur Squamous Epith Cells Blood Type Antibody Screen 04/14/18 04/14/18 04/14/18 10:31 10:31 10:31 WBC RBC Hgb Hct MCV MCH MCHC RDW Plt Count MPV Neut % (Auto) Lymph % (Auto) [place] % (Auto) Eos % (Auto) Baso % (Auto) Neut # (Auto) Lymph # (Auto) [place] # (Auto) Eos # (Auto) Baso # (Auto) Neutrophils % (Manual) Lymphocytes % (Manual) Monocytes % (Manual) Platelet Estimate Polychromasia Hypochromasia (manual) PT INR APTT Fibrinogen pO2 VBG pH VBG pCO2 VBG HCO3 VBG Total CO2 VBG O2 Sat (Calc) VBG Base Excess VBG Potassium Glucose Lactate Crit Value Called To Crit Value Called By Crit Value Read Back Blood Gas Notified Time Sodium 141 Potassium 3.9 Chloride 106 Carbon Dioxide 25 Anion Gap 14 BUN 61 H Creatinine 1.1 Est GFR ( Amer) > 60 Est GFR (Non-Af Amer) > 60 POC Glucose (mg/dL) Random Glucose 148 H Calcium 10.0 Phosphorus Magnesium Ferritin Total Bilirubin 0.5 AST 26 ALT 21 D Alkaline Phosphatase 52 Total Protein 7.2 Albumin 4.0 Globulin 3.2 Albumin/Globulin Ratio 1.2 Lipase 61 Venous Blood Potassium Urine Color Straw Urine Clarity Clear Urine pH 7.0 Ur Specific [place] 1.017 Urine Protein Negative Urine Glucose (UA) Normal Urine Ketones Negative Urine Blood Negative Urine Nitrate Negative Urine Bilirubin Negative Urine Urobilinogen Normal Ur Leukocyte Esterase Neg Urine WBC (Auto) < 1 Urine RBC (Auto) < 1 Ur Squamous Epith Cells < 1 Blood Type A POSITIVE Antibody Screen Negative 04/14/18 04/14/18 04/14/18 16:00 16:09 16:31 WBC 15.7 H RBC 2.52 L Hgb 7.9 L Hct 24.4 L MCV 96.7 H MCH 31.4 H MCHC 32.5 L RDW 13.2 Plt Count 291 MPV 7.6 Neut % (Auto) Lymph % (Auto) [place] % (Auto) Eos % (Auto) Baso % (Auto) Neut # (Auto) Lymph # (Auto) [place] # (Auto) Eos # (Auto) Baso # (Auto) Neutrophils % (Manual) Lymphocytes % (Manual) Monocytes % (Manual) Platelet Estimate Polychromasia Hypochromasia (manual) PT INR APTT Fibrinogen pO2 31 VBG pH 7.43 VBG pCO2 30 L VBG HCO3 21.4 VBG Total CO2 20.8 L VBG O2 Sat (Calc) 65.6 H VBG Base Excess -3.3 L VBG Potassium 3.5 L Glucose 112 H Lactate 1.8 Crit Value Called To Nora bonilla Crit Value Called By Pauline rt Crit Value Read Back Y Blood Gas Notified Time 1618 Sodium 147.0 Potassium Chloride 120.0 H Carbon Dioxide Anion Gap BUN Creatinine Est GFR ( Amer) Est GFR (Non-Af Amer) POC Glucose (mg/dL) Random Glucose Calcium Phosphorus Magnesium Ferritin Total Bilirubin AST ALT Alkaline Phosphatase Total Protein Albumin Globulin Albumin/Globulin Ratio Lipase Venous Blood Potassium 3.5 L Urine Color Urine Clarity Urine pH Ur Specific [place] Urine Protein Urine Glucose (UA) Urine Ketones Urine Blood Urine Nitrate Urine Bilirubin Urine Urobilinogen Ur Leukocyte Esterase Urine WBC (Auto) Urine RBC (Auto) Ur Squamous Epith Cells Blood Type A POSITIVE Antibody Screen Negative 04/14/18 04/14/18 04/14/18 16:55 17:41 18:19 WBC RBC Hgb Hct MCV MCH MCHC RDW Plt Count MPV Neut % (Auto) Lymph % (Auto) [place] % (Auto) Eos % (Auto) Baso % (Auto) Neut # (Auto) Lymph # (Auto) [place] # (Auto) Eos # (Auto) Baso # (Auto) Neutrophils % (Manual) Lymphocytes % (Manual) Monocytes % (Manual) Platelet Estimate Polychromasia Hypochromasia (manual) PT INR APTT Fibrinogen pO2 VBG pH VBG pCO2 VBG HCO3 VBG Total CO2 VBG O2 Sat (Calc) VBG Base Excess VBG Potassium Glucose Lactate Crit Value Called To Crit Value Called By Crit Value Read Back Blood Gas Notified Time Sodium 142 Potassium 3.4 L Chloride 111 H Carbon Dioxide 18 L Anion Gap 16 BUN 51 H Creatinine 0.9 Est GFR ( Amer) > 60 Est GFR (Non-Af Amer) > 60 POC Glucose (mg/dL) 104 Random Glucose 108 Calcium 9.4 Phosphorus 2.1 L Magnesium 2.0 Ferritin 31.1 Total Bilirubin 0.5 AST 39 ALT 20 L Alkaline Phosphatase 58 Total Protein 6.8 Albumin 3.7 Globulin 3.1 Albumin/Globulin Ratio 1.2 Lipase Venous Blood Potassium Urine Color Urine Clarity Urine pH Ur Specific [place] Urine Protein Urine Glucose (UA) Urine Ketones Urine Blood Urine Nitrate Urine Bilirubin Urine Urobilinogen Ur Leukocyte Esterase Urine WBC (Auto) Urine RBC (Auto) Ur Squamous Epith Cells Blood Type Antibody Screen 04/14/18 19:04 WBC RBC Hgb Hct MCV MCH MCHC RDW Plt Count MPV Neut % (Auto) Lymph % (Auto) [place] % (Auto) Eos % (Auto) Baso % (Auto) Neut # (Auto) Lymph # (Auto) [place] # (Auto) Eos # (Auto) Baso # (Auto) Neutrophils % (Manual) Lymphocytes % (Manual) Monocytes % (Manual) Platelet Estimate Polychromasia Hypochromasia (manual) PT 13.6 H INR 1.2 APTT 29 Fibrinogen 259 pO2 VBG pH VBG pCO2 VBG HCO3 VBG Total CO2 VBG O2 Sat (Calc) VBG Base Excess VBG Potassium Glucose Lactate Crit Value Called To Crit Value Called By Crit Value Read Back Blood Gas Notified Time Sodium Potassium Chloride Carbon Dioxide Anion Gap BUN Creatinine Est GFR ( Amer) Est GFR (Non-Af Amer) POC Glucose (mg/dL) Random Glucose Calcium Phosphorus Magnesium Ferritin Total Bilirubin AST ALT Alkaline Phosphatase Total Protein Albumin Globulin Albumin/Globulin Ratio Lipase Venous Blood Potassium Urine Color Urine Clarity Urine pH Ur Specific [place] Urine Protein Urine Glucose (UA) Urine Ketones Urine Blood Urine Nitrate Urine Bilirubin Urine Urobilinogen Ur Leukocyte Esterase Urine WBC (Auto) Urine RBC (Auto) Ur Squamous Epith Cells Blood Type Antibody Screen - Imaging and Cardiology CT scan - abdomen Status: Image reviewed by me, Report reviewed by me Abdominal x-ray Status: Image reviewed by me, Report reviewed by me Assessment & Plan - Assessment and Plan (Free Text) Assessment: 77M with GI bleed Plan: Major mesenteric vessels appear patent on CT NPO IVF GI scoping tomorrow Follow Q4 or Q6 H&H Transfusing 2 units D/W Dr. Smooth Yan PGY4
[2018-04-14 22:39] LABS: URINE BACTERIA RARE (<OCC); URINE BILIRUBIN NEGATIVE (NEGATIVE); URINE BLOOD NEGATIVE (NEGATIVE); URINE CLARITY Clear (Clear); URINE COLOR Straw (YELLOW); URINE GLUCOSE (UA) NORMAL (Normal); URINE LEUKOCYTE ESTERASE NEG Leu/uL (Negative); URINE PROTEIN NEGATIVE (NEGATIVE); URINE UROBILINOGEN NORMAL mg/dL (0.2-1.0)
[2018-04-14] MEDS ORDERED: Potassium Phosphate 15 MMOLE in Dextrose 5% In Water 250 ML IVPB ONE (22:51)
[2018-04-14 22:52] LABS: BARBITURATES, UR NEGATIVE (NEGATIVE); BENZODIAZEPINES, UR NEGATIVE (NEGATIVE); PHENCYCLIDINE, UR NEGATIVE (NEGATIVE)
[2018-04-14 22:53] LABS: OPIATES, UR POSITIVE (NEGATIVE)
[2018-04-15] MEDS ORDERED: DiphenhydrAMINE 50 mg/ml Inj IVP STA (00:45)
[2018-04-15 01:53] LABS: BASO # 0.1 K/uL (0.0-0.2); BASO % 0.4 % (0.0-2.0); HEMOGLOBIN 10.2 g/dL (12.0-18.0); LYMPH # 1.5 K/uL (1.0-4.3); LYMPH % 7.6 % (20.0-40.0); MEAN CELL VOLUME 93.2 fL (80.0-94.0); MEAN CORPUSCULAR HGB CONC 33.2 g/dL (33.0-37.0); MEAN PLATELET VOLUME 7.4 fL (7.2-11.7); MONO # 1.5 K/uL (0.0-0.8); MONO % 7.6 % (0.0-10.0); NEUT # 16.8 K/uL (1.8-7.0); NEUT % 84.4 % (50.0-75.0); PLATELET COUNT 220 K/uL (130-400); RBC 3.28 Mil/uL (4.40-5.90); RED CELL DISTRIBUTION WIDTH 16.5 % (11.5-14.5); WHITE BLOOD COUNT 19.9 K/uL (4.8-10.8)
[2018-04-15] MEDS: Pantoprazole 80 MG in Sodium Chloride 0.9% 100 ML IVPB SCH (02:30)
[2018-04-15 06:50] LABS: ALB/GLOB RATIO 1.2 (1.0-2.1); ALBUMIN 3.7 g/dL (3.5-5.0); ALT/SGPT 22 U/L (21-72); AST/SGOT 29 U/L (17-59); BLOOD UREA NITROGEN 31 mg/dL (9-20); CALCIUM 8.4 mg/dl (8.6-10.4); GFR NON-AFRICAN AMERICAN > 60
[2018-04-15 07:13] LABS: HEMOGLOBIN 10.6 g/dL (12.0-18.0); MEAN CORPUSCULAR HEMOGLOBIN 30.1 pg (27.0-31.0); MEAN CORPUSCULAR HGB CONC 33.4 g/dL (33.0-37.0); MEAN PLATELET VOLUME 7.5 fL (7.2-11.7); RBC 3.52 Mil/uL (4.40-5.90); RED CELL DISTRIBUTION WIDTH 16.9 % (11.5-14.5); WHITE BLOOD COUNT 21.7 K/uL (4.8-10.8)
[2018-04-15 07:22] LABS: MEAN CELL VOLUME 90.2 fL (80.0-94.0)
--- NOTE | 2018-04-15 07:24 | CP.CCUPN ---
<Morgan Young - Last Filed: 04/15/18 10:09> CCU Subjective - Physician Review Subjective (Free Text): 04/15/18 08:10 Patient seen and examined at bedside. No acute events overnight. Patient is complaining of back pain and asking for pain medications. EGD was done this morning. Critical Care Time Spent (in minutes): 35 CCU Objective - Vital Signs / Intake & Output Vital Signs (Last 4 hours): Vital Signs Temp Pulse Resp BP Pulse Ox 04/15/18 07:06 97 H 18 169/91 H 99 04/15/18 06:15 100 H 19 04/15/18 06:06 100 H 18 173/101 H 100 04/15/18 06:00 102 H 24 88 L 04/15/18 05:45 97 H 20 100 04/15/18 05:30 100 H 23 04/15/18 05:15 98 H 20 98 04/15/18 05:06 102 H 22 174/84 H 77 L 04/15/18 05:00 101 H 21 88 L 04/15/18 04:45 99 H 22 94 L 04/15/18 04:30 102 H 19 04/15/18 04:15 106 H 20 100 04/15/18 04:06 95 H 22 149/86 100 04/15/18 04:00 98.3 F 96 H 19 164/91 H 100 04/15/18 03:45 96 H 21 99 04/15/18 03:30 98 H 19 98 Intake and Output (Last 8hrs): Intake & Output 04/14/18 04/15/18 04/15/18 22:59 06:59 14:59 Intake Total 3957 1066.5 Output Total 500 1800 Balance 3457 -733.5 Weight 53.9 kg Intake: Intake, IV Amount 3132 516.5 Left Forearm 1039 80 Left Wrist 1999 212.5 Right Forearm 40 80 Right Proximal Port 54 144 Forearm Blood Product 825 550 Red Blood Cells Cpd As1 0 325 Lr Unit [id number] Red Blood Cells Cpd As1 325 Lr Unit [id number] Output: Urine 500 1800 Urine, Voided 500 1800 Stool 0 Emesis 0 Oral Regurgitation 0 Other: Voiding Method Diaper # Voids Urine, Voided 0 # Bowel Movements 1 1 - Physical Exam Head: Positive for: Atraumatic, Normocephalic Pupils: Positive for: PERRL Extroacular Muscles: Positive for: EOMI Conjunctiva: Positive for: Normal Mouth: Positive for: Moist Mucous Membranes Respiratory/Chest: Positive for: Clear to Auscultation. Negative for: Respiratory Distress, Accessory Muscle Use, Wheezes, Rales, Rhonchi Cardiovascular: Positive for: Regular Rate and Rhythm, Normal S1, S2. Negative for: Murmurs, Rub, Gallop Abdomen: Positive for: Distention (Distended around the umbilical hernia), Normal Bowel Sounds, Hernias (Umbilical hernia ). Negative for: Tenderness, Peritoneal Signs Upper Extremity: Positive for: Normal Inspection Lower Extremity: Positive for: Normal Inspection. Negative for: Edema, CALF TENDERNESS Neurological: Positive for: GCS=15, CN II-XII Intact, Speech Normal Skin: Positive for: Warm, Dry, Normal Color. Negative for: Rashes Psychiatric: Positive for: Alert, Oriented x 3, Normal Insight, Normal Concentration - Medications Active Medications: Active Medications Generic Name Dose Route Start Last Admin Trade Name Freq PRN Reason Stop Dose Admin Pantoprazole Sodium 80 mg/ 100 mls @ 10 mls/hr 04/14/18 15:45 04/15/18 02:30 Sodium Chloride IVPB 10 mls/hr .Q10H RALF Administration 8 MG/HR Octreotide Acetate 1,250 mcg/ 252.5 mls @ 10.1 mls/hr 04/14/18 17:30 04/14/18 18:38 Sodium Chloride IV 10.1 mls/hr .Q24H RALF Administration 50 MCG/HR Ceftriaxone Sodium 1 gm/ 100 mls @ 100 mls/hr 04/14/18 18:30 04/14/18 19:30 Sodium Chloride IVPB 100 mls/hr Q24H RALF Administration Protocol Esmolol HCl 2,500 mg/ Sodium 260 mls @ 17.35 mls/hr 04/14/18 18:15 04/14/18 19:30 Chloride IV 50 mcg/kg/min .Q15H RALF 17.35 mls/hr Administration Protocol 50 MCG/KG/MIN Nicotine 1 patch 04/14/18 17:45 04/14/18 18:21 Nicoderm Cq TD 1 patch DAILY RALF Administration - Patient Studies Lab Studies: Lab Studies 04/15/18 04/15/18 04/15/18 Range/Units 07:10 06:22 05:36 WBC 21.7 H (4.8-10.8) K/uL RBC 3.52 L (4.40-5.90) Mil/uL Hgb 10.6 L (12.0-18.0) g/dL Hct 31.8 L (35.0-51.0) % MCV 90.2 D (80.0-94.0) fL MCH 30.1 (27.0-31.0) pg MCHC 33.4 (33.0-37.0) g/dL RDW 16.9 H (11.5-14.5) % Plt Count 223 (130-400) K/uL MPV 7.5 (7.2-11.7) fL Neut % (Auto) (50.0-75.0) % Lymph % (Auto) (20.0-40.0) % [place] % (Auto) (0.0-10.0) % Eos % (Auto) (0.0-4.0) % Baso % (Auto) (0.0-2.0) % Neut # (Auto) (1.8-7.0) K/uL Lymph # (Auto) (1.0-4.3) K/uL [place] # (Auto) (0.0-0.8) K/uL Eos # (Auto) (0.0-0.7) K/uL Baso # (Auto) (0.0-0.2) K/uL Neutrophils % (Manual) (50-75) % Lymphocytes % (Manual) (20-40) % Monocytes % (Manual) (0-10) % Platelet Estimate (NORMAL) Polychromasia Hypochromasia (manual) PT (9.7-12.2) SECONDS INR APTT (21-34) SECONDS Fibrinogen (200-400) mg/dL pO2 (30-55) mm/Hg VBG pH (7.32-7.43) VBG pCO2 (40-60) mmHg VBG HCO3 mmol/L VBG Total CO2 (22-28) mmol/L VBG O2 Sat (Calc) (40-65) % VBG Base Excess (0.0-2.0) mmol/L VBG Potassium (3.6-5.2) mmol/L Glucose (75-110) mg/dl Lactate (0.7-2.1) mmol/L Crit Value Called To Crit Value Called By Crit Value Read Back Blood Gas Notified Time Sodium 142 (132-148) mmol/L Potassium 3.0 L (3.6-5.2) mmol/L Chloride 113 H (98-107) mmol/L Carbon Dioxide 17 L (22-30) mmol/L Anion Gap 15 (10-20) BUN 31 H (9-20) mg/dL Creatinine 0.8 (0.8-1.5) mg/dL Est GFR ( Amer) > 60 Est GFR (Non-Af Amer) > 60 POC Glucose (mg/dL) 114 H (65-110) mg/dL Random Glucose 122 H (75-110) mg/dL Lactic Acid (0.7-2.1) mmol/L Calcium 8.4 L (8.6-10.4) mg/dl Phosphorus 3.2 (2.5-4.5) mg/dL Magnesium 1.6 (1.6-2.3) mg/dL Ferritin ng/mL Total Bilirubin 0.7 (0.2-1.3) mg/dL AST 29 (17-59) U/L ALT 22 (21-72) U/L Alkaline Phosphatase 59 (38-126) U/L Total Protein 6.8 (6.3-8.3) g/dL Albumin 3.7 (3.5-5.0) g/dL Globulin 3.1 (2.2-3.9) gm/dL Albumin/Globulin Ratio 1.2 (1.0-2.1) Lipase (23-300) U/L Venous Blood Potassium (3.6-5.2) mmol/L Urine Color (YELLOW) Urine Clarity (Clear) Urine pH (5.0-8.0) Ur Specific [place] (1.003-1.030) Urine Protein (NEGATIVE) mg/dL Urine Glucose (UA) (Normal) mg/dL Urine Ketones (NEGATIVE) mg/dL Urine Blood (NEGATIVE) Urine Nitrate (NEGATIVE) Urine Bilirubin (NEGATIVE) Urine Urobilinogen (0.2-1.0) mg/dL Ur Leukocyte Esterase (Negative) Joni/uL Urine WBC (Auto) (0-5) /hpf Urine RBC (Auto) (0-3) /hpf Ur Squamous Epith Cells (0-5) /hpf Urine Bacteria (<OCC) Urine Opiates Screen (NEGATIVE) Urine Methadone Screen (NEGATIVE) Ur Barbiturates Screen (NEGATIVE) Ur Phencyclidine Scrn (NEGATIVE) Ur Amphetamines Screen (NEGATIVE) U Benzodiazepines Scrn (NEGATIVE) U Oth Cocaine Metabols (NEGATIVE) U Cannabinoids Screen (NEGATIVE) Blood Type Antibody Screen 04/15/18 04/15/18 04/14/18 Range/Units 01:48 00:46 22:26 WBC 19.9 H (4.8-10.8) K/uL RBC 3.28 L (4.40-5.90) Mil/uL Hgb 10.2 L D (12.0-18.0) g/dL Hct 30.6 L (35.0-51.0) % MCV 93.2 D (80.0-94.0) fL MCH 31.0 (27.0-31.0) pg MCHC 33.2 (33.0-37.0) g/dL RDW 16.5 H (11.5-14.5) % Plt Count 220 (130-400) K/uL MPV 7.4 (7.2-11.7) fL Neut % (Auto) 84.4 H (50.0-75.0) % Lymph % (Auto) 7.6 L (20.0-40.0) % [place] % (Auto) 7.6 (0.0-10.0) % Eos % (Auto) 0.0 (0.0-4.0) % Baso % (Auto) 0.4 (0.0-2.0) % Neut # (Auto) 16.8 H (1.8-7.0) K/uL Lymph # (Auto) 1.5 (1.0-4.3) K/uL [place] # (Auto) 1.5 H (0.0-0.8) K/uL Eos # (Auto) 0.0 (0.0-0.7) K/uL Baso # (Auto) 0.1 (0.0-0.2) K/uL Neutrophils % (Manual) (50-75) % Lymphocytes % (Manual) (20-40) % Monocytes % (Manual) (0-10) % Platelet Estimate (NORMAL) Polychromasia Hypochromasia (manual) PT (9.7-12.2) SECONDS INR APTT (21-34) SECONDS Fibrinogen (200-400) mg/dL pO2 (30-55) mm/Hg VBG pH (7.32-7.43) VBG pCO2 (40-60) mmHg VBG HCO3 mmol/L VBG Total CO2 (22-28) mmol/L VBG O2 Sat (Calc) (40-65) % VBG Base Excess (0.0-2.0) mmol/L VBG Potassium (3.6-5.2) mmol/L Glucose (75-110) mg/dl Lactate (0.7-2.1) mmol/L Crit Value Called To Crit Value Called By Crit Value Read Back Blood Gas Notified Time Sodium (132-148) mmol/L Potassium (3.6-5.2) mmol/L Chloride (98-107) mmol/L Carbon Dioxide (22-30) mmol/L Anion Gap (10-20) BUN (9-20) mg/dL Creatinine (0.8-1.5) mg/dL Est GFR ( Amer) Est GFR (Non-Af Amer) POC Glucose (mg/dL) 148 H (65-110) mg/dL Random Glucose (75-110) mg/dL Lactic Acid (0.7-2.1) mmol/L Calcium (8.6-10.4) mg/dl Phosphorus (2.5-4.5) mg/dL Magnesium (1.6-2.3) mg/dL Ferritin ng/mL Total Bilirubin (0.2-1.3) mg/dL AST (17-59) U/L ALT (21-72) U/L Alkaline Phosphatase (38-126) U/L Total Protein (6.3-8.3) g/dL Albumin (3.5-5.0) g/dL Globulin (2.2-3.9) gm/dL Albumin/Globulin Ratio (1.0-2.1) Lipase (23-300) U/L Venous Blood Potassium (3.6-5.2) mmol/L Urine Color (YELLOW) Urine Clarity (Clear) Urine pH (5.0-8.0) Ur Specific [place] (1.003-1.030) Urine Protein (NEGATIVE) mg/dL Urine Glucose (UA) (Normal) mg/dL Urine Ketones (NEGATIVE) mg/dL Urine Blood (NEGATIVE) Urine Nitrate (NEGATIVE) Urine Bilirubin (NEGATIVE) Urine Urobilinogen (0.2-1.0) mg/dL Ur Leukocyte Esterase (Negative) Joni/uL Urine WBC (Auto) (0-5) /hpf Urine RBC (Auto) (0-3) /hpf Ur Squamous Epith Cells (0-5) /hpf Urine Bacteria (<OCC) Urine Opiates Screen Positive H (NEGATIVE) Urine Methadone Screen Negative (NEGATIVE) Ur Barbiturates Screen Negative (NEGATIVE) Ur Phencyclidine Scrn Negative (NEGATIVE) Ur Amphetamines Screen Negative (NEGATIVE) U Benzodiazepines Scrn Negative (NEGATIVE) U Oth Cocaine Metabols Negative (NEGATIVE) U Cannabinoids Screen Negative (NEGATIVE) Blood Type Antibody Screen 04/14/18 04/14/18 04/14/18 Range/Units 22:24 22:24 19:04 WBC (4.8-10.8) K/uL RBC (4.40-5.90) Mil/uL Hgb (12.0-18.0) g/dL Hct (35.0-51.0) % MCV (80.0-94.0) fL MCH (27.0-31.0) pg MCHC (33.0-37.0) g/dL RDW (11.5-14.5) % Plt Count (130-400) K/uL MPV (7.2-11.7) fL Neut % (Auto) (50.0-75.0) % Lymph % (Auto) (20.0-40.0) % [place] % (Auto) (0.0-10.0) % Eos % (Auto) (0.0-4.0) % Baso % (Auto) (0.0-2.0) % Neut # (Auto) (1.8-7.0) K/uL Lymph # (Auto) (1.0-4.3) K/uL [place] # (Auto) (0.0-0.8) K/uL Eos # (Auto) (0.0-0.7) K/uL Baso # (Auto) (0.0-0.2) K/uL Neutrophils % (Manual) (50-75) % Lymphocytes % (Manual) (20-40) % Monocytes % (Manual) (0-10) % Platelet Estimate (NORMAL) Polychromasia Hypochromasia (manual) PT 13.6 H (9.7-12.2) SECONDS INR 1.2 APTT 29 (21-34) SECONDS Fibrinogen 259 (200-400) mg/dL pO2 (30-55) mm/Hg VBG pH (7.32-7.43) VBG pCO2 (40-60) mmHg VBG HCO3 mmol/L VBG Total CO2 (22-28) mmol/L VBG O2 Sat (Calc) (40-65) % VBG Base Excess (0.0-2.0) mmol/L VBG Potassium (3.6-5.2) mmol/L Glucose (75-110) mg/dl Lactate (0.7-2.1) mmol/L Crit Value Called To Crit Value Called By Crit Value Read Back Blood Gas Notified Time Sodium (132-148) mmol/L Potassium (3.6-5.2) mmol/L Chloride (98-107) mmol/L Carbon Dioxide (22-30) mmol/L Anion Gap (10-20) BUN (9-20) mg/dL Creatinine (0.8-1.5) mg/dL Est GFR ( Amer) Est GFR (Non-Af Amer) POC Glucose (mg/dL) (65-110) mg/dL Random Glucose (75-110) mg/dL Lactic Acid 1.2 (0.7-2.1) mmol/L Calcium (8.6-10.4) mg/dl Phosphorus (2.5-4.5) mg/dL Magnesium (1.6-2.3) mg/dL Ferritin ng/mL Total Bilirubin (0.2-1.3) mg/dL AST (17-59) U/L ALT (21-72) U/L Alkaline Phosphatase (38-126) U/L Total Protein (6.3-8.3) g/dL Albumin (3.5-5.0) g/dL Globulin (2.2-3.9) gm/dL Albumin/Globulin Ratio (1.0-2.1) Lipase (23-300) U/L Venous Blood Potassium (3.6-5.2) mmol/L Urine Color Straw (YELLOW) Urine Clarity Clear (Clear) Urine pH 6.0 (5.0-8.0) Ur Specific [place] 1.013 (1.003-1.030) Urine Protein Negative (NEGATIVE) mg/dL Urine Glucose (UA) Normal (Normal) mg/dL Urine Ketones Negative (NEGATIVE) mg/dL Urine Blood Negative (NEGATIVE) Urine Nitrate Negative (NEGATIVE) Urine Bilirubin Negative (NEGATIVE) Urine Urobilinogen Normal (0.2-1.0) mg/dL Ur Leukocyte Esterase Neg (Negative) Joni/uL Urine WBC (Auto) < 1 (0-5) /hpf Urine RBC (Auto) < 1 (0-3) /hpf Ur Squamous Epith Cells (0-5) /hpf Urine Bacteria Rare (<OCC) Urine Opiates Screen (NEGATIVE) Urine Methadone Screen (NEGATIVE) Ur Barbiturates Screen (NEGATIVE) Ur Phencyclidine Scrn (NEGATIVE) Ur Amphetamines Screen (NEGATIVE) U Benzodiazepines Scrn (NEGATIVE) U Oth Cocaine Metabols (NEGATIVE) U Cannabinoids Screen (NEGATIVE) Blood Type Antibody Screen 04/14/18 04/14/18 04/14/18 Range/Units 18:19 17:41 16:55 WBC (4.8-10.8) K/uL RBC (4.40-5.90) Mil/uL Hgb (12.0-18.0) g/dL Hct (35.0-51.0) % MCV (80.0-94.0) fL MCH (27.0-31.0) pg MCHC (33.0-37.0) g/dL RDW (11.5-14.5) % Plt Count (130-400) K/uL MPV (7.2-11.7) fL Neut % (Auto) (50.0-75.0) % Lymph % (Auto) (20.0-40.0) % [place] % (Auto) (0.0-10.0) % Eos % (Auto) (0.0-4.0) % Baso % (Auto) (0.0-2.0) % Neut # (Auto) (1.8-7.0) K/uL Lymph # (Auto) (1.0-4.3) K/uL [place] # (Auto) (0.0-0.8) K/uL Eos # (Auto) (0.0-0.7) K/uL Baso # (Auto) (0.0-0.2) K/uL Neutrophils % (Manual) (50-75) % Lymphocytes % (Manual) (20-40) % Monocytes % (Manual) (0-10) % Platelet Estimate (NORMAL) Polychromasia Hypochromasia (manual) PT (9.7-12.2) SECONDS INR APTT (21-34) SECONDS Fibrinogen (200-400) mg/dL pO2 (30-55) mm/Hg VBG pH (7.32-7.43) VBG pCO2 (40-60) mmHg VBG HCO3 mmol/L VBG Total CO2 (22-28) mmol/L VBG O2 Sat (Calc) (40-65) % VBG Base Excess (0.0-2.0) mmol/L VBG Potassium (3.6-5.2) mmol/L Glucose (75-110) mg/dl Lactate (0.7-2.1) mmol/L Crit Value Called To Crit Value Called By Crit Value Read Back Blood Gas Notified Time Sodium 142 (132-148) mmol/L Potassium 3.4 L (3.6-5.2) mmol/L Chloride 111 H (98-107) mmol/L Carbon Dioxide 18 L (22-30) mmol/L Anion Gap 16 (10-20) BUN 51 H (9-20) mg/dL Creatinine 0.9 (0.8-1.5) mg/dL Est GFR ( Amer) > 60 Est GFR (Non-Af Amer) > 60 POC Glucose (mg/dL) 104 (65-110) mg/dL Random Glucose 108 (75-110) mg/dL Lactic Acid (0.7-2.1) mmol/L Calcium 9.4 (8.6-10.4) mg/dl Phosphorus 2.1 L (2.5-4.5) mg/dL Magnesium 2.0 (1.6-2.3) mg/dL Ferritin 31.1 ng/mL Total Bilirubin 0.5 (0.2-1.3) mg/dL AST 39 (17-59) U/L ALT 20 L (21-72) U/L Alkaline Phosphatase 58 (38-126) U/L Total Protein 6.8 (6.3-8.3) g/dL Albumin 3.7 (3.5-5.0) g/dL Globulin 3.1 (2.2-3.9) gm/dL Albumin/Globulin Ratio 1.2 (1.0-2.1) Lipase (23-300) U/L Venous Blood Potassium (3.6-5.2) mmol/L Urine Color (YELLOW) Urine Clarity (Clear) Urine pH (5.0-8.0) Ur Specific [place] (1.003-1.030) Urine Protein (NEGATIVE) mg/dL Urine Glucose (UA) (Normal) mg/dL Urine Ketones (NEGATIVE) mg/dL Urine Blood (NEGATIVE) Urine Nitrate (NEGATIVE) Urine Bilirubin (NEGATIVE) Urine Urobilinogen (0.2-1.0) mg/dL Ur Leukocyte Esterase (Negative) Joni/uL Urine WBC (Auto) (0-5) /hpf Urine RBC (Auto) (0-3) /hpf Ur Squamous Epith Cells (0-5) /hpf Urine Bacteria (<OCC) Urine Opiates Screen (NEGATIVE) Urine Methadone Screen (NEGATIVE) Ur Barbiturates Screen (NEGATIVE) Ur Phencyclidine Scrn (NEGATIVE) Ur Amphetamines Screen (NEGATIVE) U Benzodiazepines Scrn (NEGATIVE) U Oth Cocaine Metabols (NEGATIVE) U Cannabinoids Screen (NEGATIVE) Blood Type Antibody Screen 04/14/18 04/14/18 04/14/18 Range/Units 16:31 16:09 16:00 WBC 15.7 H (4.8-10.8) K/uL RBC 2.52 L (4.40-5.90) Mil/uL Hgb 7.9 L (12.0-18.0) g/dL Hct 24.4 L (35.0-51.0) % MCV 96.7 H (80.0-94.0) fL MCH 31.4 H (27.0-31.0) pg MCHC 32.5 L (33.0-37.0) g/dL RDW 13.2 (11.5-14.5) % Plt Count 291 (130-400) K/uL MPV 7.6 (7.2-11.7) fL Neut % (Auto) (50.0-75.0) % Lymph % (Auto) (20.0-40.0) % [place] % (Auto) (0.0-10.0) % Eos % (Auto) (0.0-4.0) % Baso % (Auto) (0.0-2.0) % Neut # (Auto) (1.8-7.0) K/uL Lymph # (Auto) (1.0-4.3) K/uL [place] # (Auto) (0.0-0.8) K/uL Eos # (Auto) (0.0-0.7) K/uL Baso # (Auto) (0.0-0.2) K/uL Neutrophils % (Manual) (50-75) % Lymphocytes % (Manual) (20-40) % Monocytes % (Manual) (0-10) % Platelet Estimate (NORMAL) Polychromasia Hypochromasia (manual) PT (9.7-12.2) SECONDS INR APTT (21-34) SECONDS Fibrinogen (200-400) mg/dL pO2 31 (30-55) mm/Hg VBG pH 7.43 (7.32-7.43) VBG pCO2 30 L (40-60) mmHg VBG HCO3 21.4 mmol/L VBG Total CO2 20.8 L (22-28) mmol/L VBG O2 Sat (Calc) 65.6 H (40-65) % VBG Base Excess -3.3 L (0.0-2.0) mmol/L VBG Potassium 3.5 L (3.6-5.2) mmol/L Glucose 112 H (75-110) mg/dl Lactate 1.8 (0.7-2.1) mmol/L Crit Value Called To Nora rn Crit Value Called By Pauline rt Crit Value Read Back Y Blood Gas Notified Time 1618 Sodium 147.0 (132-148) mmol/L Potassium (3.6-5.2) mmol/L Chloride 120.0 H (98-107) mmol/L Carbon Dioxide (22-30) mmol/L Anion Gap (10-20) BUN (9-20) mg/dL Creatinine (0.8-1.5) mg/dL Est GFR ( Amer) Est GFR (Non-Af Amer) POC Glucose (mg/dL) (65-110) mg/dL Random Glucose (75-110) mg/dL Lactic Acid (0.7-2.1) mmol/L Calcium (8.6-10.4) mg/dl Phosphorus (2.5-4.5) mg/dL Magnesium (1.6-2.3) mg/dL Ferritin ng/mL Total Bilirubin (0.2-1.3) mg/dL AST (17-59) U/L ALT (21-72) U/L Alkaline Phosphatase (38-126) U/L Total Protein (6.3-8.3) g/dL Albumin (3.5-5.0) g/dL Globulin (2.2-3.9) gm/dL Albumin/Globulin Ratio (1.0-2.1) Lipase (23-300) U/L Venous Blood Potassium 3.5 L (3.6-5.2) mmol/L Urine Color (YELLOW) Urine Clarity (Clear) Urine pH (5.0-8.0) Ur Specific [place] (1.003-1.030) Urine Protein (NEGATIVE) mg/dL Urine Glucose (UA) (Normal) mg/dL Urine Ketones (NEGATIVE) mg/dL Urine Blood (NEGATIVE) Urine Nitrate (NEGATIVE) Urine Bilirubin (NEGATIVE) Urine Urobilinogen (0.2-1.0) mg/dL Ur Leukocyte Esterase (Negative) Joni/uL Urine WBC (Auto) (0-5) /hpf Urine RBC (Auto) (0-3) /hpf Ur Squamous Epith Cells (0-5) /hpf Urine Bacteria (<OCC) Urine Opiates Screen (NEGATIVE) Urine Methadone Screen (NEGATIVE) Ur Barbiturates Screen (NEGATIVE) Ur Phencyclidine Scrn (NEGATIVE) Ur Amphetamines Screen (NEGATIVE) U Benzodiazepines Scrn (NEGATIVE) U Oth Cocaine Metabols (NEGATIVE) U Cannabinoids Screen (NEGATIVE) Blood Type A POSITIVE Antibody Screen Negative 04/14/18 04/14/18 04/14/18 Range/Units 10:31 10:31 10:31 WBC (4.8-10.8) K/uL RBC (4.40-5.90) Mil/uL Hgb (12.0-18.0) g/dL Hct (35.0-51.0) % MCV (80.0-94.0) fL MCH (27.0-31.0) pg MCHC (33.0-37.0) g/dL RDW (11.5-14.5) % Plt Count (130-400) K/uL MPV (7.2-11.7) fL Neut % (Auto) (50.0-75.0) % Lymph % (Auto) (20.0-40.0) % [place] % (Auto) (0.0-10.0) % Eos % (Auto) (0.0-4.0) % Baso % (Auto) (0.0-2.0) % Neut # (Auto) (1.8-7.0) K/uL Lymph # (Auto) (1.0-4.3) K/uL [place] # (Auto) (0.0-0.8) K/uL Eos # (Auto) (0.0-0.7) K/uL Baso # (Auto) (0.0-0.2) K/uL Neutrophils % (Manual) (50-75) % Lymphocytes % (Manual) (20-40) % Monocytes % (Manual) (0-10) % Platelet Estimate (NORMAL) Polychromasia Hypochromasia (manual) PT (9.7-12.2) SECONDS INR APTT (21-34) SECONDS Fibrinogen (200-400) mg/dL pO2 (30-55) mm/Hg VBG pH (7.32-7.43) VBG pCO2 (40-60) mmHg VBG HCO3 mmol/L VBG Total CO2 (22-28) mmol/L VBG O2 Sat (Calc) (40-65) % VBG Base Excess (0.0-2.0) mmol/L VBG Potassium (3.6-5.2) mmol/L Glucose (75-110) mg/dl Lactate (0.7-2.1) mmol/L Crit Value Called To Crit Value Called By Crit Value Read Back Blood Gas Notified Time Sodium 141 (132-148) mmol/L Potassium 3.9 (3.6-5.2) mmol/L Chloride 106 (98-107) mmol/L Carbon Dioxide 25 (22-30) mmol/L Anion Gap 14 (10-20) BUN 61 H (9-20) mg/dL Creatinine 1.1 (0.8-1.5) mg/dL Est GFR ( Amer) > 60 Est GFR (Non-Af Amer) > 60 POC Glucose (mg/dL) (65-110) mg/dL Random Glucose 148 H (75-110) mg/dL Lactic Acid (0.7-2.1) mmol/L Calcium 10.0 (8.6-10.4) mg/dl Phosphorus (2.5-4.5) mg/dL Magnesium (1.6-2.3) mg/dL Ferritin ng/mL Total Bilirubin 0.5 (0.2-1.3) mg/dL AST 26 (17-59) U/L ALT 21 D (21-72) U/L Alkaline Phosphatase 52 (38-126) U/L Total Protein 7.2 (6.3-8.3) g/dL Albumin 4.0 (3.5-5.0) g/dL Globulin 3.2 (2.2-3.9) gm/dL Albumin/Globulin Ratio 1.2 (1.0-2.1) Lipase 61 (23-300) U/L Venous Blood Potassium (3.6-5.2) mmol/L Urine Color Straw (YELLOW) Urine Clarity Clear (Clear) Urine pH 7.0 (5.0-8.0) Ur Specific [place] 1.017 (1.003-1.030) Urine Protein Negative (NEGATIVE) mg/dL Urine Glucose (UA) Normal (Normal) mg/dL Urine Ketones Negative (NEGATIVE) mg/dL Urine Blood Negative (NEGATIVE) Urine Nitrate Negative (NEGATIVE) Urine Bilirubin Negative (NEGATIVE) Urine Urobilinogen Normal (0.2-1.0) mg/dL Ur Leukocyte Esterase Neg (Negative) Joni/uL Urine WBC (Auto) < 1 (0-5) /hpf Urine RBC (Auto) < 1 (0-3) /hpf Ur Squamous Epith Cells < 1 (0-5) /hpf Urine Bacteria (<OCC) Urine Opiates Screen (NEGATIVE) Urine Methadone Screen (NEGATIVE) Ur Barbiturates Screen (NEGATIVE) Ur Phencyclidine Scrn (NEGATIVE) Ur Amphetamines Screen (NEGATIVE) U Benzodiazepines Scrn (NEGATIVE) U Oth Cocaine Metabols (NEGATIVE) U Cannabinoids Screen (NEGATIVE) Blood Type A POSITIVE Antibody Screen Negative 04/14/18 04/14/18 04/14/18 Range/Units 10:31 10:31 09:56 WBC 12.9 H (4.8-10.8) K/uL RBC 2.58 L (4.40-5.90) Mil/uL Hgb 8.4 L (12.0-18.0) g/dL Hct 25.2 L (35.0-51.0) % MCV 97.6 H D (80.0-94.0) fL MCH 32.4 H (27.0-31.0) pg MCHC 33.2 (33.0-37.0) g/dL RDW 12.9 (11.5-14.5) % Plt Count 290 D (130-400) K/uL MPV 7.4 (7.2-11.7) fL Neut % (Auto) 87.2 H (50.0-75.0) % Lymph % (Auto) 7.8 L (20.0-40.0) % [place] % (Auto) 4.7 (0.0-10.0) % Eos % (Auto) 0.0 (0.0-4.0) % Baso % (Auto) 0.3 (0.0-2.0) % Neut # (Auto) 11.3 H (1.8-7.0) K/uL Lymph # (Auto) 1.0 (1.0-4.3) K/uL [place] # (Auto) 0.6 (0.0-0.8) K/uL Eos # (Auto) 0.0 (0.0-0.7) K/uL Baso # (Auto) 0.0 (0.0-0.2) K/uL Neutrophils % (Manual) 90 H (50-75) % Lymphocytes % (Manual) 8 L (20-40) % Monocytes % (Manual) 2 (0-10) % Platelet Estimate Normal (NORMAL) Polychromasia Slight Hypochromasia (manual) Slight PT 14.2 H (9.7-12.2) SECONDS INR 1.3 APTT 31 (21-34) SECONDS Fibrinogen (200-400) mg/dL pO2 (30-55) mm/Hg VBG pH (7.32-7.43) VBG pCO2 (40-60) mmHg VBG HCO3 mmol/L VBG Total CO2 (22-28) mmol/L VBG O2 Sat (Calc) (40-65) % VBG Base Excess (0.0-2.0) mmol/L VBG Potassium (3.6-5.2) mmol/L Glucose (75-110) mg/dl Lactate (0.7-2.1) mmol/L Crit Value Called To Crit Value Called By Crit Value Read Back Blood Gas Notified Time Sodium (132-148) mmol/L Potassium (3.6-5.2) mmol/L Chloride (98-107) mmol/L Carbon Dioxide (22-30) mmol/L Anion Gap (10-20) BUN (9-20) mg/dL Creatinine (0.8-1.5) mg/dL Est GFR ( Amer) Est GFR (Non-Af Amer) POC Glucose (mg/dL) 148 H (65-110) mg/dL Random Glucose (75-110) mg/dL Lactic Acid (0.7-2.1) mmol/L Calcium (8.6-10.4) mg/dl Phosphorus (2.5-4.5) mg/dL Magnesium (1.6-2.3) mg/dL Ferritin ng/mL Total Bilirubin (0.2-1.3) mg/dL AST (17-59) U/L ALT (21-72) U/L Alkaline Phosphatase (38-126) U/L Total Protein (6.3-8.3) g/dL Albumin (3.5-5.0) g/dL Globulin (2.2-3.9) gm/dL Albumin/Globulin Ratio (1.0-2.1) Lipase (23-300) U/L Venous Blood Potassium (3.6-5.2) mmol/L Urine Color (YELLOW) Urine Clarity (Clear) Urine pH (5.0-8.0) Ur Specific [place] (1.003-1.030) Urine Protein (NEGATIVE) mg/dL Urine Glucose (UA) (Normal) mg/dL Urine Ketones (NEGATIVE) mg/dL Urine Blood (NEGATIVE) Urine Nitrate (NEGATIVE) Urine Bilirubin (NEGATIVE) Urine Urobilinogen (0.2-1.0) mg/dL Ur Leukocyte Esterase (Negative) Joni/uL Urine WBC (Auto) (0-5) /hpf Urine RBC (Auto) (0-3) /hpf Ur Squamous Epith Cells (0-5) /hpf Urine Bacteria (<OCC) Urine Opiates Screen (NEGATIVE) Urine Methadone Screen (NEGATIVE) Ur Barbiturates Screen (NEGATIVE) Ur Phencyclidine Scrn (NEGATIVE) Ur Amphetamines Screen (NEGATIVE) U Benzodiazepines Scrn (NEGATIVE) U Oth Cocaine Metabols (NEGATIVE) U Cannabinoids Screen (NEGATIVE) Blood Type Antibody Screen Laboratory Results - last 24 hr 04/14/18 04/14/18 04/14/18 09:56 10:31 10:31 WBC 12.9 H RBC 2.58 L Hgb 8.4 L Hct 25.2 L MCV 97.6 H D MCH 32.4 H MCHC 33.2 RDW 12.9 Plt Count 290 D MPV 7.4 Neut % (Auto) 87.2 H Lymph % (Auto) 7.8 L [place] % (Auto) 4.7 Eos % (Auto) 0.0 Baso % (Auto) 0.3 Neut # (Auto) 11.3 H Lymph # (Auto) 1.0 [place] # (Auto) 0.6 Eos # (Auto) 0.0 Baso # (Auto) 0.0 Neutrophils % (Manual) 90 H Lymphocytes % (Manual) 8 L Monocytes % (Manual) 2 Platelet Estimate Normal Polychromasia Slight Hypochromasia (manual) Slight PT 14.2 H INR 1.3 APTT 31 Fibrinogen pO2 VBG pH VBG pCO2 VBG HCO3 VBG Total CO2 VBG O2 Sat (Calc) VBG Base Excess VBG Potassium Glucose Lactate Crit Value Called To Crit Value Called By Crit Value Read Back Blood Gas Notified Time Sodium Potassium Chloride Carbon Dioxide Anion Gap BUN Creatinine Est GFR ( Amer) Est GFR (Non-Af Amer) POC Glucose (mg/dL) 148 H Random Glucose Lactic Acid Calcium Phosphorus Magnesium Ferritin Total Bilirubin AST ALT Alkaline Phosphatase Total Protein Albumin Globulin Albumin/Globulin Ratio Lipase Venous Blood Potassium Urine Color Urine Clarity Urine pH Ur Specific [place] Urine Protein Urine Glucose (UA) Urine Ketones Urine Blood Urine Nitrate Urine Bilirubin Urine Urobilinogen Ur Leukocyte Esterase Urine WBC (Auto) Urine RBC (Auto) Ur Squamous Epith Cells Urine Bacteria Urine Opiates Screen Urine Methadone Screen Ur Barbiturates Screen Ur Phencyclidine Scrn Ur Amphetamines Screen U Benzodiazepines Scrn U Oth Cocaine Metabols U Cannabinoids Screen Blood Type Antibody Screen 12/06/18 12/06/18 12/06/18 10:31 10:31 10:31 WBC RBC Hgb Hct MCV MCH MCHC RDW Plt Count MPV Neut % (Auto) Lymph % (Auto) [place] % (Auto) Eos % (Auto) Baso % (Auto) Neut # (Auto) Lymph # (Auto) [place] # (Auto) Eos # (Auto) Baso # (Auto) Neutrophils % (Manual) Lymphocytes % (Manual) Monocytes % (Manual) Platelet Estimate Polychromasia Hypochromasia (manual) PT INR APTT Fibrinogen pO2 VBG pH VBG pCO2 VBG HCO3 VBG Total CO2 VBG O2 Sat (Calc) VBG Base Excess VBG Potassium Glucose Lactate Crit Value Called To Crit Value Called By Crit Value Read Back Blood Gas Notified Time Sodium 141 Potassium 3.9 Chloride 106 Carbon Dioxide 25 Anion Gap 14 BUN 61 H Creatinine 1.1 Est GFR ( Amer) > 60 Est GFR (Non-Af Amer) > 60 POC Glucose (mg/dL) Random Glucose 148 H Lactic Acid Calcium 10.0 Phosphorus Magnesium Ferritin Total Bilirubin 0.5 AST 26 ALT 21 D Alkaline Phosphatase 52 Total Protein 7.2 Albumin 4.0 Globulin 3.2 Albumin/Globulin Ratio 1.2 Lipase 61 Venous Blood Potassium Urine Color Straw Urine Clarity Clear Urine pH 7.0 Ur Specific [place] 1.017 Urine Protein Negative Urine Glucose (UA) Normal Urine Ketones Negative Urine Blood Negative Urine Nitrate Negative Urine Bilirubin Negative Urine Urobilinogen Normal Ur Leukocyte Esterase Neg Urine WBC (Auto) < 1 Urine RBC (Auto) < 1 Ur Squamous Epith Cells < 1 Urine Bacteria Urine Opiates Screen Urine Methadone Screen Ur Barbiturates Screen Ur Phencyclidine Scrn Ur Amphetamines Screen U Benzodiazepines Scrn U Oth Cocaine Metabols U Cannabinoids Screen Blood Type A POSITIVE Antibody Screen Negative 04/14/18 04/14/18 04/14/18 16:00 16:09 16:31 WBC 15.7 H RBC 2.52 L Hgb 7.9 L Hct 24.4 L MCV 96.7 H MCH 31.4 H MCHC 32.5 L RDW 13.2 Plt Count 291 MPV 7.6 Neut % (Auto) Lymph % (Auto) [place] % (Auto) Eos % (Auto) Baso % (Auto) Neut # (Auto) Lymph # (Auto) [place] # (Auto) Eos # (Auto) Baso # (Auto) Neutrophils % (Manual) Lymphocytes % (Manual) Monocytes % (Manual) Platelet Estimate Polychromasia Hypochromasia (manual) PT INR APTT Fibrinogen pO2 31 VBG pH 7.43 VBG pCO2 30 L VBG HCO3 21.4 VBG Total CO2 20.8 L VBG O2 Sat (Calc) 65.6 H VBG Base Excess -3.3 L VBG Potassium 3.5 L Glucose 112 H Lactate 1.8 Crit Value Called To Nora rn Crit Value Called By Pauline rt Crit Value Read Back Y Blood Gas Notified Time 1618 Sodium 147.0 Potassium Chloride 120.0 H Carbon Dioxide Anion Gap BUN Creatinine Est GFR ( Amer) Est GFR (Non-Af Amer) POC Glucose (mg/dL) Random Glucose Lactic Acid Calcium Phosphorus Magnesium Ferritin Total Bilirubin AST ALT Alkaline Phosphatase Total Protein Albumin Globulin Albumin/Globulin Ratio Lipase Venous Blood Potassium 3.5 L Urine Color Urine Clarity Urine pH Ur Specific [place] Urine Protein Urine Glucose (UA) Urine Ketones Urine Blood Urine Nitrate Urine Bilirubin Urine Urobilinogen Ur Leukocyte Esterase Urine WBC (Auto) Urine RBC (Auto) Ur Squamous Epith Cells Urine Bacteria Urine Opiates Screen Urine Methadone Screen Ur Barbiturates Screen Ur Phencyclidine Scrn Ur Amphetamines Screen U Benzodiazepines Scrn U Oth Cocaine Metabols U Cannabinoids Screen Blood Type A POSITIVE Antibody Screen Negative 04/14/18 04/14/18 04/14/18 16:55 17:41 18:19 WBC RBC Hgb Hct MCV MCH MCHC RDW Plt Count MPV Neut % (Auto) Lymph % (Auto) [place] % (Auto) Eos % (Auto) Baso % (Auto) Neut # (Auto) Lymph # (Auto) [place] # (Auto) Eos # (Auto) Baso # (Auto) Neutrophils % (Manual) Lymphocytes % (Manual) Monocytes % (Manual) Platelet Estimate Polychromasia Hypochromasia (manual) PT INR APTT Fibrinogen pO2 VBG pH VBG pCO2 VBG HCO3 VBG Total CO2 VBG O2 Sat (Calc) VBG Base Excess VBG Potassium Glucose Lactate Crit Value Called To Crit Value Called By Crit Value Read Back Blood Gas Notified Time Sodium 142 Potassium 3.4 L Chloride 111 H Carbon Dioxide 18 L Anion Gap 16 BUN 51 H Creatinine 0.9 Est GFR ( Amer) > 60 Est GFR (Non-Af Amer) > 60 POC Glucose (mg/dL) 104 Random Glucose 108 Lactic Acid Calcium 9.4 Phosphorus 2.1 L Magnesium 2.0 Ferritin 31.1 Total Bilirubin 0.5 AST 39 ALT 20 L Alkaline Phosphatase 58 Total Protein 6.8 Albumin 3.7 Globulin 3.1 Albumin/Globulin Ratio 1.2 Lipase Venous Blood Potassium Urine Color Urine Clarity Urine pH Ur Specific [place] Urine Protein Urine Glucose (UA) Urine Ketones Urine Blood Urine Nitrate Urine Bilirubin Urine Urobilinogen Ur Leukocyte Esterase Urine WBC (Auto) Urine RBC (Auto) Ur Squamous Epith Cells Urine Bacteria Urine Opiates Screen Urine Methadone Screen Ur Barbiturates Screen Ur Phencyclidine Scrn Ur Amphetamines Screen U Benzodiazepines Scrn U Oth Cocaine Metabols U Cannabinoids Screen Blood Type Antibody Screen 04/14/18 04/14/18 04/14/18 19:04 22:24 22:24 WBC RBC Hgb Hct MCV MCH MCHC RDW Plt Count MPV Neut % (Auto) Lymph % (Auto) [place] % (Auto) Eos % (Auto) Baso % (Auto) Neut # (Auto) Lymph # (Auto) [place] # (Auto) Eos # (Auto) Baso # (Auto) Neutrophils % (Manual) Lymphocytes % (Manual) Monocytes % (Manual) Platelet Estimate Polychromasia Hypochromasia (manual) PT 13.6 H INR 1.2 APTT 29 Fibrinogen 259 pO2 VBG pH VBG pCO2 VBG HCO3 VBG Total CO2 VBG O2 Sat (Calc) VBG Base Excess VBG Potassium Glucose Lactate Crit Value Called To Crit Value Called By Crit Value Read Back Blood Gas Notified Time Sodium Potassium Chloride Carbon Dioxide Anion Gap BUN Creatinine Est GFR ( Amer) Est GFR (Non-Af Amer) POC Glucose (mg/dL) Random Glucose Lactic Acid 1.2 Calcium Phosphorus Magnesium Ferritin Total Bilirubin AST ALT Alkaline Phosphatase Total Protein Albumin Globulin Albumin/Globulin Ratio Lipase Venous Blood Potassium Urine Color Straw Urine Clarity Clear Urine pH 6.0 Ur Specific [place] 1.013 Urine Protein Negative Urine Glucose (UA) Normal Urine Ketones Negative Urine Blood Negative Urine Nitrate Negative Urine Bilirubin Negative Urine Urobilinogen Normal Ur Leukocyte Esterase Neg Urine WBC (Auto) < 1 Urine RBC (Auto) < 1 Ur Squamous Epith Cells Urine Bacteria Rare Urine Opiates Screen Urine Methadone Screen Ur Barbiturates Screen Ur Phencyclidine Scrn Ur Amphetamines Screen U Benzodiazepines Scrn U Oth Cocaine Metabols U Cannabinoids Screen Blood Type Antibody Screen 04/14/18 04/15/18 04/15/18 22:26 00:46 01:48 WBC 19.9 H RBC 3.28 L Hgb 10.2 L D Hct 30.6 L MCV 93.2 D MCH 31.0 MCHC 33.2 RDW 16.5 H Plt Count 220 MPV 7.4 Neut % (Auto) 84.4 H Lymph % (Auto) 7.6 L [place] % (Auto) 7.6 Eos % (Auto) 0.0 Baso % (Auto) 0.4 Neut # (Auto) 16.8 H Lymph # (Auto) 1.5 [place] # (Auto) 1.5 H Eos # (Auto) 0.0 Baso # (Auto) 0.1 Neutrophils % (Manual) Lymphocytes % (Manual) Monocytes % (Manual) Platelet Estimate Polychromasia Hypochromasia (manual) PT INR APTT Fibrinogen pO2 VBG pH VBG pCO2 VBG HCO3 VBG Total CO2 VBG O2 Sat (Calc) VBG Base Excess VBG Potassium Glucose Lactate Crit Value Called To Crit Value Called By Crit Value Read Back Blood Gas Notified Time Sodium Potassium Chloride Carbon Dioxide Anion Gap BUN Creatinine Est GFR ( Amer) Est GFR (Non-Af Amer) POC Glucose (mg/dL) 148 H Random Glucose Lactic Acid Calcium Phosphorus Magnesium Ferritin Total Bilirubin AST ALT Alkaline Phosphatase Total Protein Albumin Globulin Albumin/Globulin Ratio Lipase Venous Blood Potassium Urine Color Urine Clarity Urine pH Ur Specific [place] Urine Protein Urine Glucose (UA) Urine Ketones Urine Blood Urine Nitrate Urine Bilirubin Urine Urobilinogen Ur Leukocyte Esterase Urine WBC (Auto) Urine RBC (Auto) Ur Squamous Epith Cells Urine Bacteria Urine Opiates Screen Positive H Urine Methadone Screen Negative Ur Barbiturates Screen Negative Ur Phencyclidine Scrn Negative Ur Amphetamines Screen Negative U Benzodiazepines Scrn Negative U Oth Cocaine Metabols Negative U Cannabinoids Screen Negative Blood Type Antibody Screen 04/15/18 04/15/18 04/15/18 05:36 06:22 07:10 WBC 21.7 H RBC 3.52 L Hgb 10.6 L Hct 31.8 L MCV 90.2 D MCH 30.1 MCHC 33.4 RDW 16.9 H Plt Count 223 MPV 7.5 Neut % (Auto) Lymph % (Auto) [place] % (Auto) Eos % (Auto) Baso % (Auto) Neut # (Auto) Lymph # (Auto) [place] # (Auto) Eos # (Auto) Baso # (Auto) Neutrophils % (Manual) Lymphocytes % (Manual) Monocytes % (Manual) Platelet Estimate Polychromasia Hypochromasia (manual) PT INR APTT Fibrinogen pO2 VBG pH VBG pCO2 VBG HCO3 VBG Total CO2 VBG O2 Sat (Calc) VBG Base Excess VBG Potassium Glucose Lactate Crit Value Called To Crit Value Called By Crit Value Read Back Blood Gas Notified Time Sodium 142 Potassium 3.0 L Chloride 113 H Carbon Dioxide 17 L Anion Gap 15 BUN 31 H Creatinine 0.8 Est GFR ( Amer) > 60 Est GFR (Non-Af Amer) > 60 POC Glucose (mg/dL) 114 H Random Glucose 122 H Lactic Acid Calcium 8.4 L Phosphorus 3.2 Magnesium 1.6 Ferritin Total Bilirubin 0.7 AST 29 ALT 22 Alkaline Phosphatase 59 Total Protein 6.8 Albumin 3.7 Globulin 3.1 Albumin/Globulin Ratio 1.2 Lipase Venous Blood Potassium Urine Color Urine Clarity Urine pH Ur Specific [place] Urine Protein Urine Glucose (UA) Urine Ketones Urine Blood Urine Nitrate Urine Bilirubin Urine Urobilinogen Ur Leukocyte Esterase Urine WBC (Auto) Urine RBC (Auto) Ur Squamous Epith Cells Urine Bacteria Urine Opiates Screen Urine Methadone Screen Ur Barbiturates Screen Ur Phencyclidine Scrn Ur Amphetamines Screen U Benzodiazepines Scrn U Oth Cocaine Metabols U Cannabinoids Screen Blood Type Antibody Screen EKG/Cardiology Studies: Cardiology / EKG Studies 04/14/18 10:04 ELECTROCARDIOGRAM Stat Comment: Mode Of Transportation: BED Reason For Exam: GI Bleeding 04/14/18 10:07 ELECTROCARDIOGRAM Stat Comment: Mode Of Transportation: BED Reason For Exam: GI Bleeding Fingerstick Blood Sugar Results: 114 Critical Care Progress Note - Nutrition Nutrition: Nutrition Category Date Time Status NPO Diet [DIET] Diets 04/14/18 Dinner Active Assessment/Plan - Assessment and Plan (Free Text) Assessment: Patient is a 77 year old male with PMHx of umbilical hernia, GI bleed in 2013, cervical fusion, chronic constipation, and HLD presenting with melena. In ED, Guaiac test was positive with black stool. EGD was done this morning. Plan: Neuro: - Patient is AAO X 3 Cardiovascular: Sinus tachycardia - EKG: Sinus tachycardia @ 118 bpm, occasional premature ventricular complexes Pulm: - CXR (04/14): No active pulmonary disease - No acute issues GI: Melena - CT Abdomen (04/14): Moderate dilatation of fluid-filled stomach and proximal and mid small bowel loops. The distal small bowel loops are decompressed. Findings are nonspecific and could be related to developing acute small bowel obstruction or nonspecific acute infectious/inflammatory enteritis. Colonic diverticulosis without CT evidence for acute diverticulitis. - Abd Xray (04/14): No bowel obstruction or free air seen - GI consulted, Dr. Best - EGD (04/15): LA grade B reflux esophagitis, no gross lesions in the stomach and second part of the duodenum. - Keep patient NPO - Surgery consulted, Dr. Rebollar - 1 unit of PRBC transfused on 04/15 - Protonix 40mg IV QD Constipation - Likely 2/2 narcotic use - Colace 100mg PO TID - Senokot Renal: Hypokalemia - Replete as needed - Continue to monitor Heme: Acute anemia - Likely 2/2 upper GI bleed - Hb: 7.9 --> 10.2 - 1 unit of PRBC transfused on 04/15 - BUN/Cr: 31/0.8 - Fibrinogen: WNL Musculoskeletal Hx of lumbar stenosis - Percocet 5/325mg PO Q6 PRN - Morphine ER 30mg PO Q12 ID: Leukocytosis - WBC: 12.9 --> 15.7 - Lactate: 1.8 --> 1.2 - Patient afebrile - UA: negative - Rocephin 1g IV QD (Started on 04/14) - Blood cx: f/u - Urine cx: No growth to date Prophylaxis: - Protonix 40mg IV QD - VTE prophylaxis contraindicated 2/2 GI bleed - SCD's Case discussed with Dr Nery Young, PGY-1 <Ingris Renteria - Last Filed: 04/15/18 14:59> CCU Objective - Vital Signs / Intake & Output Vital Signs (Last 4 hours): Vital Signs Pulse Resp BP Pulse Ox 04/15/18 12:16 101 H 18 190/82 H 100 04/15/18 11:15 99 H 15 164/90 H 92 L Intake and Output (Last 8hrs): Intake & Output 04/14/18 04/15/18 04/15/18 22:59 06:59 14:59 Intake Total 3957 1066.5 605 Output Total 500 1800 1000 Balance 3457 -733.5 -395 Weight 118 lb 13.266 oz Intake: IV 200 Intake, IV Amount 3132 516.5 405 Left Forearm 1039 80 330 Left Wrist 1999 212.5 Right Forearm 40 80 30 Right Proximal Port 54 144 45 Forearm Blood Product 825 550 Red Blood Cells Cpd As1 0 325 Lr Unit [id number] Red Blood Cells Cpd As1 325 Lr Unit [id number] Output: Urine 500 1800 1000 Urine, Voided 500 1800 1000 Emesis 0 Oral Regurgitation 0 Other: Voiding Method Diaper # Voids Urine, Voided 0 3 # Bowel Movements 1 1 0 - Medications Active Medications: Active Medications Generic Name Dose Route Start Last Admin Trade Name Freq PRN Reason Stop Dose Admin Docusate Sodium 100 mg 04/15/18 10:00 04/15/18 13:17 Colace PO Not Given TID RALF Hydromorphone HCl 1 mg 04/15/18 14:42 Dilaudid IVP 04/15/18 14:43 STAT STA Ceftriaxone Sodium 1 gm/ 100 mls @ 100 mls/hr 04/14/18 18:30 04/14/18 19:30 Sodium Chloride IVPB 100 mls/hr Q24H RALF Administration Protocol Dextrose/Sodium Chloride 1,000 mls @ 75 mls/hr 04/15/18 08:47 04/15/18 09:09 Dextrose 5%/0.9% Ns 1000 Ml IV 04/15/18 22:06 75 mls/hr .[id number] ONE Administration Influenza Virus Vaccine 60 mcg 04/17/18 10:00 Fluzone Quad [id number] IM 04/17/18 10:01 .ONCE ONE Morphine Sulfate 30 mg 04/15/18 10:00 04/15/18 09:11 Morphine Extended Release Tab PO 30 mg Q12 RALF Administration Nicotine 1 patch 04/14/18 17:45 04/15/18 10:56 Nicoderm Cq TD Not Given DAILY RALF Oxycodone/Acetaminophen 1 tab 04/15/18 08:53 04/15/18 09:24 Percocet 5/325 Mg Tab PO 04/18/18 08:54 1 tab Q6H PRN Administration Pain, moderate (4-7) Pantoprazole Sodium 40 mg 04/15/18 09:00 04/15/18 09:12 Protonix Inj IVP 40 mg Q12H RALF Administration Pneumococcal Polyvalent Vaccine 0.5 ml 04/17/18 10:00 Pneumovax 23 Vaccine IM 04/17/18 10:01 .ONCE ONE Sennosides 8.6 mg 04/15/18 10:00 04/15/18 09:12 Senokot Tab PO 8.6 mg DAILY RALF Administration - Patient Studies Lab Studies: Microbiology Studies 04/14/18 10:31 Urine Culture - Final Urine No Growth (<1,000 CFU/ML) Lab Studies 04/15/18 04/15/18 04/15/18 Range/Units 07:10 06:22 05:36 WBC 21.7 H (4.8-10.8) K/uL RBC 3.52 L (4.40-5.90) Mil/uL Hgb 10.6 L (12.0-18.0) g/dL Hct 31.8 L (35.0-51.0) % MCV 90.2 D (80.0-94.0) fL MCH 30.1 (27.0-31.0) pg MCHC 33.4 (33.0-37.0) g/dL RDW 16.9 H (11.5-14.5) % Plt Count 223 (130-400) K/uL MPV 7.5 (7.2-11.7) fL Neut % (Auto) (50.0-75.0) % Lymph % (Auto) (20.0-40.0) % [place] % (Auto) (0.0-10.0) % Eos % (Auto) (0.0-4.0) % Baso % (Auto) (0.0-2.0) % Neut # (Auto) (1.8-7.0) K/uL Lymph # (Auto) (1.0-4.3) K/uL [place] # (Auto) (0.0-0.8) K/uL Eos # (Auto) (0.0-0.7) K/uL Baso # (Auto) (0.0-0.2) K/uL Neutrophils % (Manual) (50-75) % Lymphocytes % (Manual) (20-40) % Monocytes % (Manual) (0-10) % Platelet Estimate (NORMAL) Anisocytosis (manual) Fady Cells PT (9.7-12.2) SECONDS INR APTT (21-34) SECONDS Fibrinogen (200-400) mg/dL pO2 (30-55) mm/Hg VBG pH (7.32-7.43) VBG pCO2 (40-60) mmHg VBG HCO3 mmol/L VBG Total CO2 (22-28) mmol/L VBG O2 Sat (Calc) (40-65) % VBG Base Excess (0.0-2.0) mmol/L VBG Potassium (3.6-5.2) mmol/L Sodium 142 (132-148) mmol/l Chloride 113 H (98-107) mmol/L Glucose (75-110) mg/dl Lactate (0.7-2.1) mmol/L Crit Value Called To Crit Value Called By Crit Value Read Back Blood Gas Notified Time Potassium 3.0 L (3.6-5.2) mmol/L Carbon Dioxide 17 L (22-30) mmol/L Anion Gap 15 (10-20) BUN 31 H (9-20) mg/dL Creatinine 0.8 (0.8-1.5) mg/dL Est GFR ( Amer) > 60 Est GFR (Non-Af Amer) > 60 POC Glucose (mg/dL) 114 H (65-110) mg/dL Random Glucose 122 H (75-110) mg/dL Lactic Acid (0.7-2.1) mmol/L Calcium 8.4 L (8.6-10.4) mg/dl Phosphorus 3.2 (2.5-4.5) mg/dL Magnesium 1.6 (1.6-2.3) mg/dL Ferritin ng/mL Total Bilirubin 0.7 (0.2-1.3) mg/dL AST 29 (17-59) U/L ALT 22 (21-72) U/L Alkaline Phosphatase 59 (38-126) U/L Total Protein 6.8 (6.3-8.3) g/dL Albumin 3.7 (3.5-5.0) g/dL Globulin 3.1 (2.2-3.9) gm/dL Albumin/Globulin Ratio 1.2 (1.0-2.1) Venous Blood Potassium (3.6-5.2) mmol/L Urine Color (YELLOW) Urine Clarity (Clear) Urine pH (5.0-8.0) Ur Specific [place] (1.003-1.030) Urine Protein (NEGATIVE) mg/dL Urine Glucose (UA) (Normal) mg/dL Urine Ketones (NEGATIVE) mg/dL Urine Blood (NEGATIVE) Urine Nitrate (NEGATIVE) Urine Bilirubin (NEGATIVE) Urine Urobilinogen (0.2-1.0) mg/dL Ur Leukocyte Esterase (Negative) Joni/uL Urine WBC (Auto) (0-5) /hpf Urine RBC (Auto) (0-3) /hpf Urine Bacteria (<OCC) Urine Opiates Screen (NEGATIVE) Urine Methadone Screen (NEGATIVE) Ur Barbiturates Screen (NEGATIVE) Ur Phencyclidine Scrn (NEGATIVE) Ur Amphetamines Screen (NEGATIVE) U Benzodiazepines Scrn (NEGATIVE) U Oth Cocaine Metabols (NEGATIVE) U Cannabinoids Screen (NEGATIVE) Blood Type Antibody Screen 04/15/18 04/15/18 04/14/18 Range/Units 01:48 00:46 22:26 WBC 19.9 H (4.8-10.8) K/uL RBC 3.28 L (4.40-5.90) Mil/uL Hgb 10.2 L D (12.0-18.0) g/dL Hct 30.6 L (35.0-51.0) % MCV 93.2 D (80.0-94.0) fL MCH 31.0 (27.0-31.0) pg MCHC 33.2 (33.0-37.0) g/dL RDW 16.5 H (11.5-14.5) % Plt Count 220 (130-400) K/uL MPV 7.4 (7.2-11.7) fL Neut % (Auto) 84.4 H (50.0-75.0) % Lymph % (Auto) 7.6 L (20.0-40.0) % [place] % (Auto) 7.6 (0.0-10.0) % Eos % (Auto) 0.0 (0.0-4.0) % Baso % (Auto) 0.4 (0.0-2.0) % Neut # (Auto) 16.8 H (1.8-7.0) K/uL Lymph # (Auto) 1.5 (1.0-4.3) K/uL [place] # (Auto) 1.5 H (0.0-0.8) K/uL Eos # (Auto) 0.0 (0.0-0.7) K/uL Baso # (Auto) 0.1 (0.0-0.2) K/uL Neutrophils % (Manual) 90 H (50-75) % Lymphocytes % (Manual) 6 L (20-40) % Monocytes % (Manual) 4 (0-10) % Platelet Estimate Normal (NORMAL) Anisocytosis (manual) Slight Fady Cells Slight PT (9.7-12.2) SECONDS INR APTT (21-34) SECONDS Fibrinogen (200-400) mg/dL pO2 (30-55) mm/Hg VBG pH (7.32-7.43) VBG pCO2 (40-60) mmHg VBG HCO3 mmol/L VBG Total CO2 (22-28) mmol/L VBG O2 Sat (Calc) (40-65) % VBG Base Excess (0.0-2.0) mmol/L VBG Potassium (3.6-5.2) mmol/L Sodium (132-148) mmol/l Chloride (98-107) mmol/L Glucose (75-110) mg/dl Lactate (0.7-2.1) mmol/L Crit Value Called To Crit Value Called By Crit Value Read Back Blood Gas Notified Time Potassium (3.6-5.2) mmol/L Carbon Dioxide (22-30) mmol/L Anion Gap (10-20) BUN (9-20) mg/dL Creatinine (0.8-1.5) mg/dL Est GFR ( Amer) Est GFR (Non-Af Amer) POC Glucose (mg/dL) 148 H (65-110) mg/dL Random Glucose (75-110) mg/dL Lactic Acid (0.7-2.1) mmol/L Calcium (8.6-10.4) mg/dl Phosphorus (2.5-4.5) mg/dL Magnesium (1.6-2.3) mg/dL Ferritin ng/mL Total Bilirubin (0.2-1.3) mg/dL AST (17-59) U/L ALT (21-72) U/L Alkaline Phosphatase (38-126) U/L Total Protein (6.3-8.3) g/dL Albumin (3.5-5.0) g/dL Globulin (2.2-3.9) gm/dL Albumin/Globulin Ratio (1.0-2.1) Venous Blood Potassium (3.6-5.2) mmol/L Urine Color (YELLOW) Urine Clarity (Clear) Urine pH (5.0-8.0) Ur Specific [place] (1.003-1.030) Urine Protein (NEGATIVE) mg/dL Urine Glucose (UA) (Normal) mg/dL Urine Ketones (NEGATIVE) mg/dL Urine Blood (NEGATIVE) Urine Nitrate (NEGATIVE) Urine Bilirubin (NEGATIVE) Urine Urobilinogen (0.2-1.0) mg/dL Ur Leukocyte Esterase (Negative) Joni/uL Urine WBC (Auto) (0-5) /hpf Urine RBC (Auto) (0-3) /hpf Urine Bacteria (<OCC) Urine Opiates Screen Positive H (NEGATIVE) Urine Methadone Screen Negative (NEGATIVE) Ur Barbiturates Screen Negative (NEGATIVE) Ur Phencyclidine Scrn Negative (NEGATIVE) Ur Amphetamines Screen Negative (NEGATIVE) U Benzodiazepines Scrn Negative (NEGATIVE) U Oth Cocaine Metabols Negative (NEGATIVE) U Cannabinoids Screen Negative (NEGATIVE) Blood Type Antibody Screen 04/14/18 04/14/18 04/14/18 Range/Units 22:24 22:24 19:04 WBC (4.8-10.8) K/uL RBC (4.40-5.90) Mil/uL Hgb (12.0-18.0) g/dL Hct (35.0-51.0) % MCV (80.0-94.0) fL MCH (27.0-31.0) pg MCHC (33.0-37.0) g/dL RDW (11.5-14.5) % Plt Count (130-400) K/uL MPV (7.2-11.7) fL Neut % (Auto) (50.0-75.0) % Lymph % (Auto) (20.0-40.0) % [place] % (Auto) (0.0-10.0) % Eos % (Auto) (0.0-4.0) % Baso % (Auto) (0.0-2.0) % Neut # (Auto) (1.8-7.0) K/uL Lymph # (Auto) (1.0-4.3) K/uL [place] # (Auto) (0.0-0.8) K/uL Eos # (Auto) (0.0-0.7) K/uL Baso # (Auto) (0.0-0.2) K/uL Neutrophils % (Manual) (50-75) % Lymphocytes % (Manual) (20-40) % Monocytes % (Manual) (0-10) % Platelet Estimate (NORMAL) Anisocytosis (manual) Fady Cells PT 13.6 H (9.7-12.2) SECONDS INR 1.2 APTT 29 (21-34) SECONDS Fibrinogen 259 (200-400) mg/dL pO2 (30-55) mm/Hg VBG pH (7.32-7.43) VBG pCO2 (40-60) mmHg VBG HCO3 mmol/L VBG Total CO2 (22-28) mmol/L VBG O2 Sat (Calc) (40-65) % VBG Base Excess (0.0-2.0) mmol/L VBG Potassium (3.6-5.2) mmol/L Sodium (132-148) mmol/l Chloride (98-107) mmol/L Glucose (75-110) mg/dl Lactate (0.7-2.1) mmol/L Crit Value Called To Crit Value Called By Crit Value Read Back Blood Gas Notified Time Potassium (3.6-5.2) mmol/L Carbon Dioxide (22-30) mmol/L Anion Gap (10-20) BUN (9-20) mg/dL Creatinine (0.8-1.5) mg/dL Est GFR ( Amer) Est GFR (Non-Af Amer) POC Glucose (mg/dL) (65-110) mg/dL Random Glucose (75-110) mg/dL Lactic Acid 1.2 (0.7-2.1) mmol/L Calcium (8.6-10.4) mg/dl Phosphorus (2.5-4.5) mg/dL Magnesium (1.6-2.3) mg/dL Ferritin ng/mL Total Bilirubin (0.2-1.3) mg/dL AST (17-59) U/L ALT (21-72) U/L Alkaline Phosphatase (38-126) U/L Total Protein (6.3-8.3) g/dL Albumin (3.5-5.0) g/dL Globulin (2.2-3.9) gm/dL Albumin/Globulin Ratio (1.0-2.1) Venous Blood Potassium (3.6-5.2) mmol/L Urine Color Straw (YELLOW) Urine Clarity Clear (Clear) Urine pH 6.0 (5.0-8.0) Ur Specific [place] 1.013 (1.003-1.030) Urine Protein Negative (NEGATIVE) mg/dL Urine Glucose (UA) Normal (Normal) mg/dL Urine Ketones Negative (NEGATIVE) mg/dL Urine Blood Negative (NEGATIVE) Urine Nitrate Negative (NEGATIVE) Urine Bilirubin Negative (NEGATIVE) Urine Urobilinogen Normal (0.2-1.0) mg/dL Ur Leukocyte Esterase Neg (Negative) Joni/uL Urine WBC (Auto) < 1 (0-5) /hpf Urine RBC (Auto) < 1 (0-3) /hpf Urine Bacteria Rare (<OCC) Urine Opiates Screen (NEGATIVE) Urine Methadone Screen (NEGATIVE) Ur Barbiturates Screen (NEGATIVE) Ur Phencyclidine Scrn (NEGATIVE) Ur Amphetamines Screen (NEGATIVE) U Benzodiazepines Scrn (NEGATIVE) U Oth Cocaine Metabols (NEGATIVE) U Cannabinoids Screen (NEGATIVE) Blood Type Antibody Screen 04/14/18 04/14/18 04/14/18 Range/Units 18:19 17:41 16:55 WBC (4.8-10.8) K/uL RBC (4.40-5.90) Mil/uL Hgb (12.0-18.0) g/dL Hct (35.0-51.0) % MCV (80.0-94.0) fL MCH (27.0-31.0) pg MCHC (33.0-37.0) g/dL RDW (11.5-14.5) % Plt Count (130-400) K/uL MPV (7.2-11.7) fL Neut % (Auto) (50.0-75.0) % Lymph % (Auto) (20.0-40.0) % [place] % (Auto) (0.0-10.0) % Eos % (Auto) (0.0-4.0) % Baso % (Auto) (0.0-2.0) % Neut # (Auto) (1.8-7.0) K/uL Lymph # (Auto) (1.0-4.3) K/uL [place] # (Auto) (0.0-0.8) K/uL Eos # (Auto) (0.0-0.7) K/uL Baso # (Auto) (0.0-0.2) K/uL Neutrophils % (Manual) (50-75) % Lymphocytes % (Manual) (20-40) % Monocytes % (Manual) (0-10) % Platelet Estimate (NORMAL) Anisocytosis (manual) Fady Cells PT (9.7-12.2) SECONDS INR APTT (21-34) SECONDS Fibrinogen (200-400) mg/dL pO2 (30-55) mm/Hg VBG pH (7.32-7.43) VBG pCO2 (40-60) mmHg VBG HCO3 mmol/L VBG Total CO2 (22-28) mmol/L VBG O2 Sat (Calc) (40-65) % VBG Base Excess (0.0-2.0) mmol/L VBG Potassium (3.6-5.2) mmol/L Sodium 142 (132-148) mmol/l Chloride 111 H (98-107) mmol/L Glucose (75-110) mg/dl Lactate (0.7-2.1) mmol/L Crit Value Called To Crit Value Called By Crit Value Read Back Blood Gas Notified Time Potassium 3.4 L (3.6-5.2) mmol/L Carbon Dioxide 18 L (22-30) mmol/L Anion Gap 16 (10-20) BUN 51 H (9-20) mg/dL Creatinine 0.9 (0.8-1.5) mg/dL Est GFR ( Amer) > 60 Est GFR (Non-Af Amer) > 60 POC Glucose (mg/dL) 104 (65-110) mg/dL Random Glucose 108 (75-110) mg/dL Lactic Acid (0.7-2.1) mmol/L Calcium 9.4 (8.6-10.4) mg/dl Phosphorus 2.1 L (2.5-4.5) mg/dL Magnesium 2.0 (1.6-2.3) mg/dL Ferritin 31.1 ng/mL Total Bilirubin 0.5 (0.2-1.3) mg/dL AST 39 (17-59) U/L ALT 20 L (21-72) U/L Alkaline Phosphatase 58 (38-126) U/L Total Protein 6.8 (6.3-8.3) g/dL Albumin 3.7 (3.5-5.0) g/dL Globulin 3.1 (2.2-3.9) gm/dL Albumin/Globulin Ratio 1.2 (1.0-2.1) Venous Blood Potassium (3.6-5.2) mmol/L Urine Color (YELLOW) Urine Clarity (Clear) Urine pH (5.0-8.0) Ur Specific [place] (1.003-1.030) Urine Protein (NEGATIVE) mg/dL Urine Glucose (UA) (Normal) mg/dL Urine Ketones (NEGATIVE) mg/dL Urine Blood (NEGATIVE) Urine Nitrate (NEGATIVE) Urine Bilirubin (NEGATIVE) Urine Urobilinogen (0.2-1.0) mg/dL Ur Leukocyte Esterase (Negative) Joni/uL Urine WBC (Auto) (0-5) /hpf Urine RBC (Auto) (0-3) /hpf Urine Bacteria (<OCC) Urine Opiates Screen (NEGATIVE) Urine Methadone Screen (NEGATIVE) Ur Barbiturates Screen (NEGATIVE) Ur Phencyclidine Scrn (NEGATIVE) Ur Amphetamines Screen (NEGATIVE) U Benzodiazepines Scrn (NEGATIVE) U Oth Cocaine Metabols (NEGATIVE) U Cannabinoids Screen (NEGATIVE) Blood Type Antibody Screen 04/14/18 04/14/18 04/14/18 Range/Units 16:31 16:09 16:00 WBC 15.7 H (4.8-10.8) K/uL RBC 2.52 L (4.40-5.90) Mil/uL Hgb 7.9 L (12.0-18.0) g/dL Hct 24.4 L (35.0-51.0) % MCV 96.7 H (80.0-94.0) fL MCH 31.4 H (27.0-31.0) pg MCHC 32.5 L (33.0-37.0) g/dL RDW 13.2 (11.5-14.5) % Plt Count 291 (130-400) K/uL MPV 7.6 (7.2-11.7) fL Neut % (Auto) (50.0-75.0) % Lymph % (Auto) (20.0-40.0) % [place] % (Auto) (0.0-10.0) % Eos % (Auto) (0.0-4.0) % Baso % (Auto) (0.0-2.0) % Neut # (Auto) (1.8-7.0) K/uL Lymph # (Auto) (1.0-4.3) K/uL [place] # (Auto) (0.0-0.8) K/uL Eos # (Auto) (0.0-0.7) K/uL Baso # (Auto) (0.0-0.2) K/uL Neutrophils % (Manual) (50-75) % Lymphocytes % (Manual) (20-40) % Monocytes % (Manual) (0-10) % Platelet Estimate (NORMAL) Anisocytosis (manual) [place]ady Cells PT (9.7-12.2) SECONDS INR APTT (21-34) SECONDS Fibrinogen (200-400) mg/dL pO2 31 (30-55) mm/Hg VBG pH 7.43 (7.32-7.43) VBG pCO2 30 L (40-60) mmHg VBG HCO3 21.4 mmol/L VBG Total CO2 20.8 L (22-28) mmol/L VBG O2 Sat (Calc) 65.6 H (40-65) % VBG Base Excess -3.3 L (0.0-2.0) mmol/L VBG Potassium 3.5 L (3.6-5.2) mmol/L Sodium 147.0 (132-148) mmol/l Chloride 120.0 H (98-107) mmol/L Glucose 112 H (75-110) mg/dl Lactate 1.8 (0.7-2.1) mmol/L Crit Value Called To Nora rn Crit Value Called By Pauline rt Crit Value Read Back Y Blood Gas Notified Time 1618 Potassium (3.6-5.2) mmol/L Carbon Dioxide (22-30) mmol/L Anion Gap (10-20) BUN (9-20) mg/dL Creatinine (0.8-1.5) mg/dL Est GFR ( Amer) Est GFR (Non-Af Amer) POC Glucose (mg/dL) (65-110) mg/dL Random Glucose (75-110) mg/dL Lactic Acid (0.7-2.1) mmol/L Calcium (8.6-10.4) mg/dl Phosphorus (2.5-4.5) mg/dL Magnesium (1.6-2.3) mg/dL Ferritin ng/mL Total Bilirubin (0.2-1.3) mg/dL AST (17-59) U/L ALT (21-72) U/L Alkaline Phosphatase (38-126) U/L Total Protein (6.3-8.3) g/dL Albumin (3.5-5.0) g/dL Globulin (2.2-3.9) gm/dL Albumin/Globulin Ratio (1.0-2.1) Venous Blood Potassium 3.5 L (3.6-5.2) mmol/L Urine Color (YELLOW) Urine Clarity (Clear) Urine pH (5.0-8.0) Ur Specific [place] (1.003-1.030) Urine Protein (NEGATIVE) mg/dL Urine Glucose (UA) (Normal) mg/dL Urine Ketones (NEGATIVE) mg/dL Urine Blood (NEGATIVE) Urine Nitrate (NEGATIVE) Urine Bilirubin (NEGATIVE) Urine Urobilinogen (0.2-1.0) mg/dL Ur Leukocyte Esterase (Negative) Joni/uL Urine WBC (Auto) (0-5) /hpf Urine RBC (Auto) (0-3) /hpf Urine Bacteria (<OCC) Urine Opiates Screen (NEGATIVE) Urine Methadone Screen (NEGATIVE) Ur Barbiturates Screen (NEGATIVE) Ur Phencyclidine Scrn (NEGATIVE) Ur Amphetamines Screen (NEGATIVE) U Benzodiazepines Scrn (NEGATIVE) U Oth Cocaine Metabols (NEGATIVE) U Cannabinoids Screen (NEGATIVE) Blood Type A POSITIVE Antibody Screen Negative Laboratory Results - last 24 hr 04/14/18 04/14/18 04/14/18 16:00 16:09 16:31 WBC 15.7 H RBC 2.52 L Hgb 7.9 L Hct 24.4 L MCV 96.7 H MCH 31.4 H MCHC 32.5 L RDW 13.2 Plt Count 291 MPV 7.6 Neut % (Auto) Lymph % (Auto) [place] % (Auto) Eos % (Auto) Baso % (Auto) Neut # (Auto) Lymph # (Auto) [place] # (Auto) Eos # (Auto) Baso # (Auto) Neutrophils % (Manual) Lymphocytes % (Manual) Monocytes % (Manual) Platelet Estimate Anisocytosis (manual) [place] Cells PT INR APTT Fibrinogen pO2 31 VBG pH 7.43 VBG pCO2 30 L VBG HCO3 21.4 VBG Total CO2 20.8 L VBG O2 Sat (Calc) 65.6 H VBG Base Excess -3.3 L VBG Potassium 3.5 L Sodium 147.0 Chloride 120.0 H Glucose 112 H Lactate 1.8 Crit Value Called To Nora [place] Crit Value Called By Pauline rt Crit Value Read Back Y Blood Gas Notified Time 1618 Potassium Carbon Dioxide Anion Gap BUN Creatinine Est GFR ( Amer) Est GFR (Non-Af Amer) POC Glucose (mg/dL) Random Glucose Lactic Acid Calcium Phosphorus Magnesium Ferritin Total Bilirubin AST ALT Alkaline Phosphatase Total Protein Albumin Globulin Albumin/Globulin Ratio Venous Blood Potassium 3.5 L Urine Color Urine Clarity Urine pH Ur Specific [place] Urine Protein Urine Glucose (UA) Urine Ketones Urine Blood Urine Nitrate Urine Bilirubin Urine Urobilinogen Ur Leukocyte Esterase Urine WBC (Auto) Urine RBC (Auto) Urine Bacteria Urine Opiates Screen Urine Methadone Screen Ur Barbiturates Screen Ur Phencyclidine Scrn Ur Amphetamines Screen U Benzodiazepines Scrn U Oth Cocaine Metabols U Cannabinoids Screen Blood Type A POSITIVE Antibody Screen Negative 04/14/18 04/14/18 04/14/18 16:55 17:41 18:19 WBC RBC Hgb Hct MCV MCH MCHC RDW Plt Count MPV Neut % (Auto) Lymph % (Auto) [place] % (Auto) Eos % (Auto) Baso % (Auto) Neut # (Auto) Lymph # (Auto) [place] # (Auto) Eos # (Auto) Baso # (Auto) Neutrophils % (Manual) Lymphocytes % (Manual) Monocytes % (Manual) Platelet Estimate Anisocytosis (manual) [place] Cells PT INR APTT Fibrinogen pO2 VBG pH VBG pCO2 VBG HCO3 VBG Total CO2 VBG O2 Sat (Calc) VBG Base Excess VBG Potassium Sodium 142 Chloride 111 H Glucose Lactate Crit Value Called To Crit Value Called By Crit Value Read Back Blood Gas Notified Time Potassium 3.4 L Carbon Dioxide 18 L Anion Gap 16 BUN 51 H Creatinine 0.9 Est GFR ( Amer) > 60 Est GFR (Non-Af Amer) > 60 POC Glucose (mg/dL) 104 Random Glucose 108 Lactic Acid Calcium 9.4 Phosphorus 2.1 L Magnesium 2.0 Ferritin 31.1 Total Bilirubin 0.5 AST 39 ALT 20 L Alkaline Phosphatase 58 Total Protein 6.8 Albumin 3.7 Globulin 3.1 Albumin/Globulin Ratio 1.2 Venous Blood Potassium Urine Color Urine Clarity Urine pH Ur Specific [place] Urine Protein Urine Glucose (UA) Urine Ketones Urine Blood Urine Nitrate Urine Bilirubin Urine Urobilinogen Ur Leukocyte Esterase Urine WBC (Auto) Urine RBC (Auto) Urine Bacteria Urine Opiates Screen Urine Methadone Screen Ur Barbiturates Screen Ur Phencyclidine Scrn Ur Amphetamines Screen U Benzodiazepines Scrn U Oth Cocaine Metabols U Cannabinoids Screen Blood Type Antibody Screen 04/14/18 04/14/18 04/14/18 19:04 22:24 22:24 WBC RBC Hgb Hct MCV MCH MCHC RDW Plt Count MPV Neut % (Auto) Lymph % (Auto) [place] % (Auto) Eos % (Auto) Baso % (Auto) Neut # (Auto) Lymph # (Auto) [place] # (Auto) Eos # (Auto) Baso # (Auto) Neutrophils % (Manual) Lymphocytes % (Manual) Monocytes % (Manual) Platelet Estimate Anisocytosis (manual) Fady Cells PT 13.6 H INR 1.2 APTT 29 Fibrinogen 259 pO2 VBG pH VBG pCO2 VBG HCO3 VBG Total CO2 VBG O2 Sat (Calc) VBG Base Excess VBG Potassium Sodium Chloride Glucose Lactate Crit Value Called To Crit Value Called By Crit Value Read Back Blood Gas Notified Time Potassium Carbon Dioxide Anion Gap BUN Creatinine Est GFR ( Amer) Est GFR (Non-Af Amer) POC Glucose (mg/dL) Random Glucose Lactic Acid 1.2 Calcium Phosphorus Magnesium Ferritin Total Bilirubin AST ALT Alkaline Phosphatase Total Protein Albumin Globulin Albumin/Globulin Ratio Venous Blood Potassium Urine Color Straw Urine Clarity Clear Urine pH 6.0 Ur Specific [place] 1.013 Urine Protein Negative Urine Glucose (UA) Normal Urine Ketones Negative Urine Blood Negative Urine Nitrate Negative Urine Bilirubin Negative Urine Urobilinogen Normal Ur Leukocyte Esterase Neg Urine WBC (Auto) < 1 Urine RBC (Auto) < 1 Urine Bacteria Rare Urine Opiates Screen Urine Methadone Screen Ur Barbiturates Screen Ur Phencyclidine Scrn Ur Amphetamines Screen U Benzodiazepines Scrn U Oth Cocaine Metabols U Cannabinoids Screen Blood Type Antibody Screen 04/14/18 04/15/18 04/15/18 22:26 00:46 01:48 WBC 19.9 H RBC 3.28 L Hgb 10.2 L D Hct 30.6 L MCV 93.2 D MCH 31.0 MCHC 33.2 RDW 16.5 H Plt Count 220 MPV 7.4 Neut % (Auto) 84.4 H Lymph % (Auto) 7.6 L [place] % (Auto) 7.6 Eos % (Auto) 0.0 Baso % (Auto) 0.4 Neut # (Auto) 16.8 H Lymph # (Auto) 1.5 [place] # (Auto) 1.5 H Eos # (Auto) 0.0 Baso # (Auto) 0.1 Neutrophils % (Manual) 90 H Lymphocytes % (Manual) 6 L Monocytes % (Manual) 4 Platelet Estimate Normal Anisocytosis (manual) Slight [place] Cells Slight PT INR APTT Fibrinogen pO2 VBG pH VBG pCO2 VBG HCO3 VBG Total CO2 VBG O2 Sat (Calc) VBG Base Excess VBG Potassium Sodium Chloride Glucose Lactate Crit Value Called To Crit Value Called By Crit Value Read Back Blood Gas Notified Time Potassium Carbon Dioxide Anion Gap BUN Creatinine Est GFR ( Amer) Est GFR (Non-Af Amer) POC Glucose (mg/dL) 148 H Random Glucose Lactic Acid Calcium Phosphorus Magnesium Ferritin Total Bilirubin AST ALT Alkaline Phosphatase Total Protein Albumin Globulin Albumin/Globulin Ratio Venous Blood Potassium Urine Color Urine Clarity Urine pH Ur Specific [place] Urine Protein Urine Glucose (UA) Urine Ketones Urine Blood Urine Nitrate Urine Bilirubin Urine Urobilinogen Ur Leukocyte Esterase Urine WBC (Auto) Urine RBC (Auto) Urine Bacteria Urine Opiates Screen Positive H Urine Methadone Screen Negative Ur Barbiturates Screen Negative Ur Phencyclidine Scrn Negative Ur Amphetamines Screen Negative U Benzodiazepines Scrn Negative U Oth Cocaine Metabols Negative U Cannabinoids Screen Negative Blood Type Antibody Screen 04/15/18 04/15/18 04/15/18 05:36 06:22 07:10 WBC 21.7 H RBC 3.52 L Hgb 10.6 L Hct 31.8 L MCV 90.2 D MCH 30.1 MCHC 33.4 RDW 16.9 H Plt Count 223 MPV 7.5 Neut % (Auto) Lymph % (Auto) [place] % (Auto) Eos % (Auto) Baso % (Auto) Neut # (Auto) Lymph # (Auto) [place] # (Auto) Eos # (Auto) Baso # (Auto) Neutrophils % (Manual) Lymphocytes % (Manual) Monocytes % (Manual) Platelet Estimate Anisocytosis (manual) [place]ady Cells PT INR APTT Fibrinogen pO2 VBG pH VBG pCO2 VBG HCO3 VBG Total CO2 VBG O2 Sat (Calc) VBG Base Excess VBG Potassium Sodium 142 Chloride 113 H Glucose Lactate Crit Value Called To Crit Value Called By Crit Value Read Back Blood Gas Notified Time Potassium 3.0 L Carbon Dioxide 17 L Anion Gap 15 BUN 31 H Creatinine 0.8 Est GFR ( Amer) > 60 Est GFR (Non-Af Amer) > 60 POC Glucose (mg/dL) 114 H Random Glucose 122 H Lactic Acid Calcium 8.4 L Phosphorus 3.2 Magnesium 1.6 Ferritin Total Bilirubin 0.7 AST 29 ALT 22 Alkaline Phosphatase 59 Total Protein 6.8 Albumin 3.7 Globulin 3.1 Albumin/Globulin Ratio 1.2 Venous Blood Potassium Urine Color Urine Clarity Urine pH Ur Specific [place] Urine Protein Urine Glucose (UA) Urine Ketones Urine Blood Urine Nitrate Urine Bilirubin Urine Urobilinogen Ur Leukocyte Esterase Urine WBC (Auto) Urine RBC (Auto) Urine Bacteria Urine Opiates Screen Urine Methadone Screen Ur Barbiturates Screen Ur Phencyclidine Scrn Ur Amphetamines Screen U Benzodiazepines Scrn U Oth Cocaine Metabols U Cannabinoids Screen Blood Type Antibody Screen Critical Care Progress Note - Nutrition Nutrition: Nutrition Category Date Time Status NPO Diet [DIET] Diets 04/14/18 Dinner Active Assessment/Plan - Assessment and Plan (Free Text) Plan: Patient remains hemodynamically stable -EGD reveals no stigmata of bleeding -BUN decreasing -avoid NSAID -chronic pain: patient is used to taking morphine ER q12 and percocet -will restart home level of opioids -patient is requesting to go home; however daughter "homer" did not feel comfortably taking patient home and observing patient. -Patient remains hemodynamically stable -f/u serial cbc -psych follow up -unsafe discharge st present as family not willing to take responsibility for patient at home. - Date & Time Date: 04/15/18 Time: 14:59
[2018-04-15] MEDS ORDERED: Midazolam 2 MG/2 ML VIAL ONE (08:03)
[2018-04-15] MEDS ORDERED: Propofol 10 mg/ml Inj (20 ML) ONE (08:03)
[2018-04-15 08:23] LABS: ANISOCYTOSIS SLIGHT; LYMPHOCYTE 6 % (20-40); MONOCYTE 4 % (0-10); NEUTROPHIL 90 % (50-75); PLATELET ESTIMATE NORMAL (NORMAL); TOTAL CELLS COUNTED 100
--- NOTE | 2018-04-15 08:26 | CP.PCM.CON ---
History of Present Illness - History of Present Illness History of Present Illness: This is a 77 year old man with melena. Patient is known to me from the office, but has not been seen since05/23/2013. The last EGD in the office records was 01/12/2013 and showed erosive gastritis, hiatial hernia, and possible esophageal varices. Colonoscopy 11/19/2011 showed diverticulosis. A previous colonoscopy 12/25/2010 showed hyperplastic polyps in addition to diverticulosis. Patient was hospitalized at [facility] [place] for a GI bleed in 2013 which required laparotomy for control of bleeding; the details of this hospitalization are not currently available. He presented to the ER 04/14/2018 complaining of generalized weakness and mult iple dark bowel movements. He denied recent alcohol, aspirin or NSAID ingestion. On evaluation in the ER, he was tachycardic (HR 119) and hypertensive (BP 155/90), with temp 99.8. Abdominal exam was significant for a ventral hernia. CT scan showed moderate dilatation of fluid-filled stomach and proximal and mid small bowel loops; the distal small bowel was decompressed; diverticulosis of the colon was also noted. The initial HGB was 8.4, and the last HGB in the chart on 05/20/2015 was 10.2. He denies having nausea, vomiting, heartburn, difficulty swallowing, loss of appetite and loss of weight. He was constipated before admission and took a laxative. He denies having bright red blood per rectum. Review of Systems - Review of Systems Systems not reviewed;Unavailable: Other - Constitutional Constitutional: Lethargy. absent: Anorexia, Fever, Weight Loss - Cardiovascular Cardiovascular: absent: Chest Pain - Gastrointestinal Gastrointestinal: Constipation, Melena. absent: Abdominal Pain, Dysphagia, Heartburn, Nausea, Vomiting Past Patient History - Infectious Disease Hx of Infectious Diseases: None - Past Medical History & Family History Past Medical History?: Yes - Past Social History Smoking Status: Current Some Days Smoker - CARDIAC Hx Hypercholesterolemia: Yes Hx Hypertension: Yes - PULMONARY Hx Respiratory Disorders: No - NEUROLOGICAL Hx Neurological Disorder: No - HEENT Hx HEENT Problems: No - RENAL Hx Chronic Kidney Disease: No - ENDOCRINE/METABOLIC Hx Endocrine Disorders: No - HEMATOLOGICAL/ONCOLOGICAL Hx Blood Disorders: No - INTEGUMENTARY Hx Dermatological Problems: No - MUSCULOSKELETAL/RHEUMATOLOGICAL Hx Musculoskeletal Disorders: No - GASTROINTESTINAL Other/Comment: chronic constipation - GENITOURINARY/GYNECOLOGICAL Hx Genitourinary Disorders: No - PSYCHIATRIC Hx Substance Use: No - SURGICAL HISTORY Hx Appendectomy: Yes - ANESTHESIA Hx Anesthesia: Yes Hx Anesthesia Reactions: No Hx Malignant Hyperthermia: No Meds Allergies/Adverse Reactions: Allergies Allergy/AdvReac Type Severity Reaction Status Date / Time No Known Allergies Allergy Verified 04/14/18 10:06 - Medications Medications: Current Medications Pantoprazole Sodium 80 mg/ (Sodium Chloride) 100 mls @ 10 mls/hr IVPB .Q10H [facility] Last Admin: 04/15/18 02:30 Dose: 10 mls/hr Ceftriaxone Sodium 1 gm/ (Sodium Chloride) 100 mls @ 100 mls/hr IVPB Q24H [facility]; Protocol Last Admin: 04/14/18 19:30 Dose: 100 mls/hr Esmolol HCl 2,500 mg/ Sodium (Chloride) 260 mls @ 17.35 mls/hr IV .Q15H [facility]; Protocol Last Admin: 04/14/18 19:30 Dose: 50 mcg/kg/min, 17.35 mls/hr Octreotide Acetate 1,250 mcg/ (Sodium Chloride) 252.5 mls @ 5.05 mls/hr IV .Q24H [facility] Nicotine (Nicoderm Cq) 1 patch TD DAILY [facility] Last Admin: 04/14/18 18:21 Dose: 1 patch Potassium Chloride (K-Dur 20 Meq Er Tab) 40 meq PO Q4H [facility] Stop: 04/15/18 11:31 Physical Exam - Head Exam Head Exam: ATRAUMATIC, NORMOCEPHALIC - Eye Exam Eye Exam: EOMI, PERRL - Neck Exam Neck exam: Negative for: Lymphadenopathy, Thyromegaly - Respiratory Exam Respiratory Exam: NORMAL BREATHING PATTERN. absent: Rales, Rhonchi, Wheezes - Cardiovascular Exam Cardiovascular Exam: REGULAR RHYTHM, +S1, +S2. absent: Gallop, Rubs, Systolic Murmur - GI/Abdominal Exam GI & Abdominal Exam: Distended, Mass, Normal Bowel Sounds, Soft. absent: Tenderness Additional comments: 8 cm ventral hernia - Rectal Exam Rectal Exam: Deferred - Extremities Exam Extremities exam: Negative for: calf tenderness, pedal edema Results - Vital Signs Recent Vital Signs: Last Vital Signs Temp 98.3 F 04/15/18 04:00 Pulse 97 H 04/15/18 07:06 Resp 18 04/15/18 07:06 BP 169/91 H 04/15/18 07:06 Pulse Ox 99 04/15/18 07:06 - Labs Result Diagrams: 04/15/18 07:10 04/15/18 06:22 Labs: Laboratory Results - last 24 hr 04/14/18 04/14/18 04/14/18 09:56 10:31 10:31 WBC 12.9 H RBC 2.58 L Hgb 8.4 L Hct 25.2 L MCV 97.6 H D MCH 32.4 H MCHC 33.2 RDW 12.9 Plt Count 290 D MPV 7.4 Neut % (Auto) 87.2 H Lymph % (Auto) 7.8 L [place] % (Auto) 4.7 Eos % (Auto) 0.0 Baso % (Auto) 0.3 Neut # (Auto) 11.3 H Lymph # (Auto) 1.0 [place] # (Auto) 0.6 Eos # (Auto) 0.0 Baso # (Auto) 0.0 Neutrophils % (Manual) 90 H Lymphocytes % (Manual) 8 L Monocytes % (Manual) 2 Platelet Estimate Normal Polychromasia Slight Hypochromasia (manual) Slight PT 14.2 H INR 1.3 APTT 31 Fibrinogen pO2 VBG pH VBG pCO2 VBG HCO3 VBG Total CO2 VBG O2 Sat (Calc) VBG Base Excess VBG Potassium Glucose Lactate Crit Value Called To Crit Value Called By Crit Value Read Back Blood Gas Notified Time Sodium Potassium Chloride Carbon Dioxide Anion Gap BUN Creatinine Est GFR ( Amer) Est GFR (Non-Af Amer) POC Glucose (mg/dL) 148 H Random Glucose Lactic Acid Calcium Phosphorus Magnesium Ferritin Total Bilirubin AST ALT Alkaline Phosphatase Total Protein Albumin Globulin Albumin/Globulin Ratio Lipase Venous Blood Potassium Urine Color Urine Clarity Urine pH Ur Specific [place] Urine Protein Urine Glucose (UA) Urine Ketones Urine Blood Urine Nitrate Urine Bilirubin Urine Urobilinogen Ur Leukocyte Esterase Urine WBC (Auto) Urine RBC (Auto) Ur Squamous Epith Cells Urine Bacteria Urine Opiates Screen Urine Methadone Screen Ur Barbiturates Screen Ur Phencyclidine Scrn Ur Amphetamines Screen U Benzodiazepines Scrn U Oth Cocaine Metabols U Cannabinoids Screen Blood Type Antibody Screen 04/14/18 04/14/18 04/14/18 10:31 10:31 10:31 WBC RBC Hgb Hct MCV MCH MCHC RDW Plt Count MPV Neut % (Auto) Lymph % (Auto) [place] % (Auto) Eos % (Auto) Baso % (Auto) Neut # (Auto) Lymph # (Auto) [place] # (Auto) Eos # (Auto) Baso # (Auto) Neutrophils % (Manual) Lymphocytes % (Manual) Monocytes % (Manual) Platelet Estimate Polychromasia Hypochromasia (manual) PT INR APTT Fibrinogen pO2 VBG pH VBG pCO2 VBG HCO3 VBG Total CO2 VBG O2 Sat (Calc) VBG Base Excess VBG Potassium Glucose Lactate Crit Value Called To Crit Value Called By Crit Value Read Back Blood Gas Notified Time Sodium 141 Potassium 3.9 Chloride 106 Carbon Dioxide 25 Anion Gap 14 BUN 61 H Creatinine 1.1 Est GFR ( Amer) > 60 Est GFR (Non-Af Amer) > 60 POC Glucose (mg/dL) Random Glucose 148 H Lactic Acid Calcium 10.0 Phosphorus Magnesium Ferritin Total Bilirubin 0.5 AST 26 ALT 21 D Alkaline Phosphatase 52 Total Protein 7.2 Albumin 4.0 Globulin 3.2 Albumin/Globulin Ratio 1.2 Lipase 61 Venous Blood Potassium Urine Color Straw Urine Clarity Clear Urine pH 7.0 Ur Specific [place] 1.017 Urine Protein Negative Urine Glucose (UA) Normal Urine Ketones Negative Urine Blood Negative Urine Nitrate Negative Urine Bilirubin Negative Urine Urobilinogen Normal Ur Leukocyte Esterase Neg Urine WBC (Auto) < 1 Urine RBC (Auto) < 1 Ur Squamous Epith Cells < 1 Urine Bacteria Urine Opiates Screen Urine Methadone Screen Ur Barbiturates Screen Ur Phencyclidine Scrn Ur Amphetamines Screen U Benzodiazepines Scrn U Oth Cocaine Metabols U Cannabinoids Screen Blood Type A POSITIVE Antibody Screen Negative 04/14/18 04/14/18 04/14/18 16:00 16:09 16:31 WBC 15.7 H RBC 2.52 L Hgb 7.9 L Hct 24.4 L MCV 96.7 H MCH 31.4 H MCHC 32.5 L RDW 13.2 Plt Count 291 MPV 7.6 Neut % (Auto) Lymph % (Auto) [place] % (Auto) Eos % (Auto) Baso % (Auto) Neut # (Auto) Lymph # (Auto) [place] # (Auto) Eos # (Auto) Baso # (Auto) Neutrophils % (Manual) Lymphocytes % (Manual) Monocytes % (Manual) Platelet Estimate Polychromasia Hypochromasia (manual) PT INR APTT Fibrinogen pO2 31 VBG pH 7.43 VBG pCO2 30 L VBG HCO3 21.4 VBG Total CO2 20.8 L VBG O2 Sat (Calc) 65.6 H VBG Base Excess -3.3 L VBG Potassium 3.5 L Glucose 112 H Lactate 1.8 Crit Value Called To Nora bonilla Crit Value Called By Pauline rt Crit Value Read Back Y Blood Gas Notified Time 1618 Sodium 147.0 Potassium Chloride 120.0 H Carbon Dioxide Anion Gap BUN Creatinine Est GFR ( Amer) Est GFR (Non-Af Amer) POC Glucose (mg/dL) Random Glucose Lactic Acid Calcium Phosphorus Magnesium Ferritin Total Bilirubin AST ALT Alkaline Phosphatase Total Protein Albumin Globulin Albumin/Globulin Ratio Lipase Venous Blood Potassium 3.5 L Urine Color Urine Clarity Urine pH Ur Specific [place] Urine Protein Urine Glucose (UA) Urine Ketones Urine Blood Urine Nitrate Urine Bilirubin Urine Urobilinogen Ur Leukocyte Esterase Urine WBC (Auto) Urine RBC (Auto) Ur Squamous Epith Cells Urine Bacteria Urine Opiates Screen Urine Methadone Screen Ur Barbiturates Screen Ur Phencyclidine Scrn Ur Amphetamines Screen U Benzodiazepines Scrn U Oth Cocaine Metabols U Cannabinoids Screen Blood Type A POSITIVE Antibody Screen Negative 04/14/18 04/14/18 04/14/18 16:55 17:41 18:19 WBC RBC Hgb Hct MCV MCH MCHC RDW Plt Count MPV Neut % (Auto) Lymph % (Auto) [place] % (Auto) Eos % (Auto) Baso % (Auto) Neut # (Auto) Lymph # (Auto) [place] # (Auto) Eos # (Auto) Baso # (Auto) Neutrophils % (Manual) Lymphocytes % (Manual) Monocytes % (Manual) Platelet Estimate Polychromasia Hypochromasia (manual) PT INR APTT Fibrinogen pO2 VBG pH VBG pCO2 VBG HCO3 VBG Total CO2 VBG O2 Sat (Calc) VBG Base Excess VBG Potassium Glucose Lactate Crit Value Called To Crit Value Called By Crit Value Read Back Blood Gas Notified Time Sodium 142 Potassium 3.4 L Chloride 111 H Carbon Dioxide 18 L Anion Gap 16 BUN 51 H Creatinine 0.9 Est GFR ( Amer) > 60 Est GFR (Non-Af Amer) > 60 POC Glucose (mg/dL) 104 Random Glucose 108 Lactic Acid Calcium 9.4 Phosphorus 2.1 L Magnesium 2.0 Ferritin 31.1 Total Bilirubin 0.5 AST 39 ALT 20 L Alkaline Phosphatase 58 Total Protein 6.8 Albumin 3.7 Globulin 3.1 Albumin/Globulin Ratio 1.2 Lipase Venous Blood Potassium Urine Color Urine Clarity Urine pH Ur Specific [place] Urine Protein Urine Glucose (UA) Urine Ketones Urine Blood Urine Nitrate Urine Bilirubin Urine Urobilinogen Ur Leukocyte Esterase Urine WBC (Auto) Urine RBC (Auto) Ur Squamous Epith Cells Urine Bacteria Urine Opiates Screen Urine Methadone Screen Ur Barbiturates Screen Ur Phencyclidine Scrn Ur Amphetamines Screen U Benzodiazepines Scrn U Oth Cocaine Metabols U Cannabinoids Screen Blood Type Antibody Screen 04/14/18 04/14/18 04/14/18 19:04 22:24 22:24 WBC RBC Hgb Hct MCV MCH MCHC RDW Plt Count MPV Neut % (Auto) Lymph % (Auto) [place] % (Auto) Eos % (Auto) Baso % (Auto) Neut # (Auto) Lymph # (Auto) [place] # (Auto) Eos # (Auto) Baso # (Auto) Neutrophils % (Manual) Lymphocytes % (Manual) Monocytes % (Manual) Platelet Estimate Polychromasia Hypochromasia (manual) PT 13.6 H INR 1.2 APTT 29 Fibrinogen 259 pO2 VBG pH VBG pCO2 VBG HCO3 VBG Total CO2 VBG O2 Sat (Calc) VBG Base Excess VBG Potassium Glucose Lactate Crit Value Called To Crit Value Called By Crit Value Read Back Blood Gas Notified Time Sodium Potassium Chloride Carbon Dioxide Anion Gap BUN Creatinine Est GFR ( Amer) Est GFR (Non-Af Amer) POC Glucose (mg/dL) Random Glucose Lactic Acid 1.2 Calcium Phosphorus Magnesium Ferritin Total Bilirubin AST ALT Alkaline Phosphatase Total Protein Albumin Globulin Albumin/Globulin Ratio Lipase Venous Blood Potassium Urine Color Straw Urine Clarity Clear Urine pH 6.0 Ur Specific [place] 1.013 Urine Protein Negative Urine Glucose (UA) Normal Urine Ketones Negative Urine Blood Negative Urine Nitrate Negative Urine Bilirubin Negative Urine Urobilinogen Normal Ur Leukocyte Esterase Neg Urine WBC (Auto) < 1 Urine RBC (Auto) < 1 Ur Squamous Epith Cells Urine Bacteria Rare Urine Opiates Screen Urine Methadone Screen Ur Barbiturates Screen Ur Phencyclidine Scrn Ur Amphetamines Screen U Benzodiazepines Scrn U Oth Cocaine Metabols U Cannabinoids Screen Blood Type Antibody Screen 12/10/2504/15/18 04/15/18 22:26 00:46 01:48 WBC 19.9 H RBC 3.28 L Hgb 10.2 L D Hct 30.6 L MCV 93.2 D MCH 31.0 MCHC 33.2 RDW 16.5 H Plt Count 220 MPV 7.4 Neut % (Auto) 84.4 H Lymph % (Auto) 7.6 L [place] % (Auto) 7.6 Eos % (Auto) 0.0 Baso % (Auto) 0.4 Neut # (Auto) 16.8 H Lymph # (Auto) 1.5 [place] # (Auto) 1.5 H Eos # (Auto) 0.0 Baso # (Auto) 0.1 Neutrophils % (Manual) Lymphocytes % (Manual) Monocytes % (Manual) Platelet Estimate Polychromasia Hypochromasia (manual) PT INR APTT Fibrinogen pO2 VBG pH VBG pCO2 VBG HCO3 VBG Total CO2 VBG O2 Sat (Calc) VBG Base Excess VBG Potassium Glucose Lactate Crit Value Called To Crit Value Called By Crit Value Read Back Blood Gas Notified Time Sodium Potassium Chloride Carbon Dioxide Anion Gap BUN Creatinine Est GFR ( Amer) Est GFR (Non-Af Amer) POC Glucose (mg/dL) 148 H Random Glucose Lactic Acid Calcium Phosphorus Magnesium Ferritin Total Bilirubin AST ALT Alkaline Phosphatase Total Protein Albumin Globulin Albumin/Globulin Ratio Lipase Venous Blood Potassium Urine Color Urine Clarity Urine pH Ur Specific [place] Urine Protein Urine Glucose (UA) Urine Ketones Urine Blood Urine Nitrate Urine Bilirubin Urine Urobilinogen Ur Leukocyte Esterase Urine WBC (Auto) Urine RBC (Auto) Ur Squamous Epith Cells Urine Bacteria Urine Opiates Screen Positive H Urine Methadone Screen Negative Ur Barbiturates Screen Negative Ur Phencyclidine Scrn Negative Ur Amphetamines Screen Negative U Benzodiazepines Scrn Negative U Oth Cocaine Metabols Negative U Cannabinoids Screen Negative Blood Type Antibody Screen 04/15/18 04/15/18 04/15/18 05:36 06:22 07:10 WBC 21.7 H RBC 3.52 L Hgb 10.6 L Hct 31.8 L MCV 90.2 D MCH 30.1 MCHC 33.4 RDW 16.9 H Plt Count 223 MPV 7.5 Neut % (Auto) Lymph % (Auto) [place] % (Auto) Eos % (Auto) Baso % (Auto) Neut # (Auto) Lymph # (Auto) [place] # (Auto) Eos # (Auto) Baso # (Auto) Neutrophils % (Manual) Lymphocytes % (Manual) Monocytes % (Manual) Platelet Estimate Polychromasia Hypochromasia (manual) PT INR APTT Fibrinogen pO2 VBG pH VBG pCO2 VBG HCO3 VBG Total CO2 VBG O2 Sat (Calc) VBG Base Excess VBG Potassium Glucose Lactate Crit Value Called To Crit Value Called By Crit Value Read Back Blood Gas Notified Time Sodium 142 Potassium 3.0 L Chloride 113 H Carbon Dioxide 17 L Anion Gap 15 BUN 31 H Creatinine 0.8 Est GFR ( Amer) > 60 Est GFR (Non-Af Amer) > 60 POC Glucose (mg/dL) 114 H Random Glucose 122 H Lactic Acid Calcium 8.4 L Phosphorus 3.2 Magnesium 1.6 Ferritin Total Bilirubin 0.7 AST 29 ALT 22 Alkaline Phosphatase 59 Total Protein 6.8 Albumin 3.7 Globulin 3.1 Albumin/Globulin Ratio 1.2 Lipase Venous Blood Potassium Urine Color Urine Clarity Urine pH Ur Specific [place] Urine Protein Urine Glucose (UA) Urine Ketones Urine Blood Urine Nitrate Urine Bilirubin Urine Urobilinogen Ur Leukocyte Esterase Urine WBC (Auto) Urine RBC (Auto) Ur Squamous Epith Cells Urine Bacteria Urine Opiates Screen Urine Methadone Screen Ur Barbiturates Screen Ur Phencyclidine Scrn Ur Amphetamines Screen U Benzodiazepines Scrn U Oth Cocaine Metabols U Cannabinoids Screen Blood Type Antibody Screen Assessment & Plan (1) Melena Assessment and Plan: Patient is admitted with melena and anemia. He has a history of complicated peptic ulcer disease requiring surgery and a possible history of esophageal varices. Will obtain records from [facility] [place]. Continue infusions of pantoprazole and octreotide. EGD to be scheduled. Status: Acute
[2018-04-15 08:27] LABS: BURR CELLS SLIGHT
[2018-04-15] MEDS ORDERED: Dextrose 5%/0.9% NS 1,000 ML IV ONE (08:47)
[2018-04-15] MEDS ORDERED: Magnesium Sulfate 1 gm in D5W 1 GM/100 ML BAG IVPB ONE (08:51)
--- NOTE | 2018-04-15 09:09 | CP.PCM.PN ---
Subjective - Date & Time of Evaluation Date of Evaluation: 04/15/18 Time of Evaluation: 07:20 - Subjective Subjective: Surgery Progress Note. Dr. Rebollar service. Pt seen and examined at bedside. No acute events overnight. No N/V/D. Does c/o back pain, chronic. Denies any more episodes of bloody BMs. No other complaints. Objective - Vital Signs/Intake and Output Vital Signs (last 24 hours): Temp Pulse Resp BP Pulse Ox 97.7 F 95 H 18 141/96 H 100 04/15/18 08:10 04/15/18 08:40 04/15/18 08:40 04/15/18 08:40 04/15/18 08:40 Intake and Output: 04/15/18 04/15/18 06:59 18:59 Intake Total 2730.5 276 Output Total 2300 Balance 430.5 276 - Medications Medications: Current Medications Docusate Sodium (Colace) 100 mg PO TID [facility] Ceftriaxone Sodium 1 gm/ (Sodium Chloride) 100 mls @ 100 mls/hr IVPB Q24H [facility]; Protocol Last Admin: 04/14/18 19:30 Dose: 100 mls/hr Dextrose/Sodium Chloride (Dextrose 5%/0.9% Ns 1000 Ml) 1,000 mls @ 75 mls/hr IV .[id number] ONE Stop: 04/15/18 22:06 Magnesium Sulfate/Dextrose (Magnesium Sulfate 1 Gm/100 Ml D5w) 1 gm in 100 mls @ 200 mls/hr IVPB ONCE ONE Stop: 04/15/18 09:20 Morphine Sulfate (Morphine Extended Release Tab) 30 mg PO Q12 [facility] Nicotine (Nicoderm Cq) 1 patch TD DAILY [facility] Last Admin: 04/14/18 18:21 Dose: 1 patch Oxycodone/Acetaminophen (Percocet 5/325 Mg Tab) 1 tab PO Q6H PRN PRN Reason: Pain, moderate (4-7) Stop: 04/18/18 08:54 Pantoprazole Sodium (Protonix Inj) 40 mg IVP Q12H [facility] Potassium Chloride (K-Dur 20 Meq Er Tab) 40 meq PO Q4H RALF Stop: 04/15/18 11:31 Sennosides (Senokot Tab) 8.6 mg PO DAILY RALF - Labs Labs: 04/15/18 07:10 04/15/18 06:22 PT 13.6 SECONDS (9.7-12.2) H 04/14/18 19:04 INR 1.2 04/14/18 19:04 APTT 29 SECONDS (21-34) 04/14/18 19:04 - Constitutional Appears: Non-toxic, No Acute Distress - Head Exam Head Exam: ATRAUMATIC, NORMAL INSPECTION, NORMOCEPHALIC - Eye Exam Eye Exam: EOMI - ENT Exam ENT Exam: Mucous Membranes Moist - GI/Abdominal Exam GI & Abdominal Exam: Soft, Rebound. absent: Distended, Guarding, Rigid, Tenderness - Extremities Exam Extremities Exam: Normal Inspection. absent: Calf Tenderness - Neurological Exam Neurological Exam: Alert, Awake, Oriented x3 - Skin Skin Exam: Dry, Intact, Normal Color, Warm Assessment and Plan - Assessment and Plan (Free Text) Assessment: 77yo M with GI bleed Plan: - Continue Protonix and octreotide - f/u GI recs. Plan for EGD - trend h/h. Stable at this time - IVF further recs as per Dr. Smooth [place] PGY2 surgery
[2018-04-15] MEDS: Potassium Chloride 20 mEq ER Tab PO SCH ×2 (09:10→13:19)
[2018-04-15] MEDS: Oxycodone/Acetaminophen 5/325 mg Tab PO PRN ×2 (09:24→16:07)
--- NOTE | 2018-04-15 09:25 | RAD ---
Date of service: 04/15/2018 HISTORY: post endoscopy pain COMPARISON: None available. FINDINGS: BOWEL: Normal. No obstruction. No free air. Please note that evaluation for free air is limited in the absence of an upright or lateral decubitus radiograph. BONES: Normal. OTHER FINDINGS: None. IMPRESSION: No active disease.
[2018-04-15] MEDS ORDERED: Morphine 30 mg SR Tab PO SCH ×2 (10:00→18:00)
[2018-04-15] MEDS ORDERED: HYDROmorphone 1 mg/ml ISec IVP STA ×2 (14:14→14:54)
--- NOTE | 2018-04-15 15:57 | CP.PCM.PN ---
Subjective - Date & Time of Evaluation Date of Evaluation: 04/15/18 Time of Evaluation: 15:50 - Subjective Subjective: Medical Attending Note: Patient seen and examined this afternoon. Patient denies headache, denies chest pain, denies shortness of breathe, denies nausea, denies vomitting, denies abdominal, reports body pains, denies constipation. Patient is requesting to go home; requesting for ambulance to take him home. I told him he is not stable to go home yet. Patient underwent EGD this morning. Objective - Vital Signs/Intake and Output Vital Signs (last 24 hours): Temp Pulse Resp BP Pulse Ox 97.7 F 101 H 18 190/82 H 100 04/15/18 08:10 04/15/18 12:16 04/15/18 12:16 04/15/18 12:16 04/15/18 12:16 Intake and Output: 04/15/18 04/15/18 06:59 18:59 Intake Total 2730.5 605 Output Total 2300 1000 Balance 430.5 -395 - Medications Medications: Current Medications Docusate Sodium (Colace) 100 mg PO TID [facility] Last Admin: 04/15/18 13:17 Dose: Not Given Ceftriaxone Sodium 1 gm/ (Sodium Chloride) 100 mls @ 100 mls/hr IVPB Q24H [facility]; Protocol Last Admin: 04/14/18 19:30 Dose: 100 mls/hr Dextrose/Sodium Chloride (Dextrose 5%/0.9% Ns 1000 Ml) 1,000 mls @ 75 mls/hr IV .[id number] ONE Stop: 04/15/18 22:06 Last Admin: 04/15/18 09:09 Dose: 75 mls/hr Influenza Virus Vaccine (Fluzone Quad [id number]) 60 mcg IM .ONCE ONE Stop: 04/17/18 10:01 Morphine Sulfate (Morphine Extended Release Tab) 30 mg PO Q12 [facility] Last Admin: 04/15/18 09:11 Dose: 30 mg Nicotine (Nicoderm Cq) 1 patch TD DAILY [facility] Last Admin: 04/15/18 10:56 Dose: Not Given Oxycodone/Acetaminophen (Percocet 5/325 Mg Tab) 1 tab PO Q6H PRN PRN Reason: Pain, moderate (4-7) Stop: 04/18/18 08:54 Last Admin: 04/15/18 09:24 Dose: 1 tab Pantoprazole Sodium (Protonix Inj) 40 mg IVP Q12H [facility] Last Admin: 04/15/18 09:12 Dose: 40 mg Pneumococcal Polyvalent Vaccine (Pneumovax 23 Vaccine) 0.5 ml IM .ONCE ONE Stop: 04/17/18 10:01 Sennosides (Senokot Tab) 8.6 mg PO DAILY [facility] Last Admin: 04/15/18 09:12 Dose: 8.6 mg - Labs Labs: 04/15/18 07:10 04/15/18 06:22 PT 13.6 SECONDS (9.7-12.2) H 04/14/18 19:04 INR 1.2 04/14/18 19:04 APTT 29 SECONDS (21-34) 04/14/18 19:04 - Constitutional Appears: Non-toxic, No Acute Distress - Head Exam Head Exam: NORMAL INSPECTION - Eye Exam Eye Exam: EOMI - ENT Exam ENT Exam: Mucous Membranes Moist - Respiratory Exam Respiratory Exam: Clear to Ausculation Bilateral, NORMAL BREATHING PATTERN. absent: Rales, Rhonchi, Wheezes - Cardiovascular Exam Cardiovascular Exam: REGULAR RHYTHM, +S1, +S2 - GI/Abdominal Exam GI & Abdominal Exam: Soft, Tenderness (mild), Hernia (septated, enlarges when he breathes in), Normal Bowel Sounds. absent: Rebound - Extremities Exam Extremities Exam: absent: Pedal Edema, Tenderness - Neurological Exam Neurological Exam: Alert, Awake, Oriented x3 - Psychiatric Exam Psychiatric exam: Agitated - Skin Skin Exam: Dry, Intact, Normal Color, Warm Assessment and Plan (1) GI bleed Status: Acute (2) Melena Status: Acute (3) Lumbar stenosis Status: Acute (4) Cervical vertebral fusion Status: Acute (5) Incisional hernia Status: Acute (6) Prophylactic measure Status: Acute Attending/Attestation - Attestation I have personally seen and examined this patient.: Yes I have fully participated in the care of the patient.: Yes I have reviewed all pertinent clinical information, including history, physical exam and plan: Yes Notes (Text): 1. GI Bleed Assessment/Plan *
[2018-04-15] MEDS ORDERED: Home Med 1 UNIT (Oxycodone Hcl/Acetaminophen [Percocet 10-325 Mg Tablet] 1 EACH) PO SCH (17:30)
[2018-04-15] MEDS: Potassium Chloride 20 mEq/15 ml LIQ UD PO SCH ×2 (17:36→21:50)
--- NOTE | 2018-04-15 18:11 | CP.PCM.PN ---
Subjective - Date & Time of Evaluation Date of Evaluation: 04/15/18 Time of Evaluation: 16:00 - Subjective Subjective: Medical attending note Patient seen, examined, case discussed with medical chief technician. Patient seen status post EGD. Patient reported he wants to go home. Patient reports he has medication lying around the house which is easy for him to reach. Patient denies headache, denies chest pain, denies shortness of breath, denies nausea, denies vomiting, denies abdominal pain patient reports body aches and pains all over his body denies urinary complaints. Discussed with ICU patient stable for transfer per ICU. Patient reports he wants to go home. I did advise patient that he would be leaving AGAINST MEDICAL ADVICE. Resident did follow up with the patient's daughter to get his complete medication list since he is chronically on pain medications for known cervical fusion and lumbar stenosis. Objective - Vital Signs/Intake and Output Vital Signs (last 24 hours): Temp Pulse Resp BP Pulse Ox 97.7 F 96 H 19 161/81 H 95 04/15/18 08:10 04/15/18 17:15 04/15/18 17:15 04/15/18 17:15 04/15/18 16:15 Intake and Output: 04/15/18 04/15/18 06:59 18:59 Intake Total 2730.5 905 Output Total 2300 1350 Balance 430.5 -445 - Medications Medications: Current Medications Diltiazem HCl (Cardizem) 60 mg PO TID [facility] Docusate Sodium (Colace) 100 mg PO TID [facility] Last Admin: 04/15/18 13:17 Dose: Not Given Gabapentin (Neurontin) 800 mg PO DAILY [facility] Home Med (Dutasteride/Tamsulosin Hcl [Dutasteride-Tamsulosin 0.5-0.4]) 1 each PO DAILY [facility] Home Med (Oxycodone Hcl/Acetaminophen [Percocet 10-325 Mg Tablet]) 1 each PO DAILY [facility] Ceftriaxone Sodium 1 gm/ (Sodium Chloride) 100 mls @ 100 mls/hr IVPB Q24H [facility]; Protocol Last Admin: 04/14/18 19:30 Dose: 100 mls/hr Influenza Virus Vaccine (Fluzone Quad [id number]) 60 mcg IM .ONCE ONE Stop: 04/17/18 10:01 Metoprolol Tartrate (Lopressor) 25 mg PO Q12H [facility] Last Admin: 04/15/18 17:25 Dose: Not Given Morphine Sulfate (Morphine Extended Release Tab) 30 mg PO Q12 [facility] Last Admin: 04/15/18 09:11 Dose: 30 mg Morphine Sulfate (Morphine Extended Release Tab) 30 mg PO DAILY [facility] Nicotine (Nicoderm Cq) 1 patch TD DAILY [facility] Last Admin: 04/15/18 10:56 Dose: Not Given Oxycodone/Acetaminophen (Percocet 5/325 Mg Tab) 1 tab PO Q6H PRN PRN Reason: Pain, moderate (4-7) Stop: 04/18/18 08:54 Last Admin: 04/15/18 16:07 Dose: 1 tab Pantoprazole Sodium (Protonix Inj) 40 mg IVP Q12H [facility] Last Admin: 04/15/18 09:12 Dose: 40 mg Pneumococcal Polyvalent Vaccine (Pneumovax 23 Vaccine) 0.5 ml IM .ONCE ONE Stop: 04/17/18 10:01 Potassium Chloride (Potassium Chloride Oral Soln) 40 meq PO Q6H [facility] Stop: 04/16/18 10:31 Last Admin: 04/15/18 17:36 Dose: 40 meq Sennosides (Senokot Tab) 8.6 mg PO DAILY [facility] Last Admin: 04/15/18 09:12 Dose: 8.6 mg - Labs Labs: 04/15/18 07:10 04/15/18 06:22 PT 13.6 SECONDS (9.7-12.2) H 04/14/18 19:04 INR 1.2 04/14/18 19:04 APTT 29 SECONDS (21-34) 04/14/18 19:04 - Constitutional Appears: Non-toxic, No Acute Distress - Head Exam Head Exam: NORMAL INSPECTION - Eye Exam Eye Exam: EOMI - ENT Exam ENT Exam: Mucous Membranes Moist - Respiratory Exam Respiratory Exam: Clear to Ausculation Bilateral. absent: Rales, Rhonchi, Wheezes - Cardiovascular Exam Cardiovascular Exam: REGULAR RHYTHM, +S1, +S2 - GI/Abdominal Exam GI & Abdominal Exam: Soft, Hernia (incisional), Normal Bowel Sounds. absent: Distended, Firm, Guarding, Rigid, Tenderness, Rebound - Extremities Exam Extremities Exam: absent: Pedal Edema, Tenderness - Neurological Exam Neurological Exam: Alert, Awake, Oriented x3 - Skin Skin Exam: Dry, Intact, Normal Color, Warm Assessment and Plan (1) GI bleed Status: Acute (2) Cervical vertebral fusion Status: Acute (3) Incisional hernia Status: Acute (4) Lumbar stenosis Status: Acute (5) Chronic pain Status: Acute (6) Prophylactic measure Status: Acute Attending/Attestation - Attestation I have personally seen and examined this patient.: Yes I have fully participated in the care of the patient.: Yes I have reviewed all pertinent clinical information, including history, physical exam and plan: Yes Notes (Text): 1. GI Bleed Assessment/plan * Dr. Best on board help appreciated * Dr. Rebollar on board help appreciated * CT abdomen/Pelvis: evaluation of the bowel is limited in the absence of oral contrast. Modertae dilatation of the fluid filled stomach and proximal and mid small bowel loops. The distal small bowel loops are decompressed. Findings are nonspecific and could be related to developing acute small obstruction or on specfici infectious/inflammatory enteritis. Colonic diverticulosis without CT evidence of acute diverticulitis. * Abdominal Xray (04/14/18): no bowel obstruction or free air present * Abdominal xray (04/15/18): no active disease * EGD (04/15/18): la grade B esophagitis with no bleeding was found. No biopsies or other specimens were collected for this exam. No gross lesions were noted in the gastric fundus and in the gastric antrum. A medium amount of food mixed with dark liquid in the gastric body. 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 No gross lesions were noted in the second portion of the duodenum. * Patient received 2 units of PRBC during hospitalization. 2. Hypokalemia * replete * monitor 3. Current smoker * patient advised to stop smoking * Nicoderm patch daily 4. Chronic Pain * As outpatient per daughter patient is receiving the following: * Morphine ER 30mg PO BID * Percocet 5/325 1 tab PO Q6H * Gabapentin 800mg PO BID * Baclofen 10mg tid * Celebrex 200mg PO BID (held) * Cardizem 60mg PO TID (Restarted) * Cilastozol 50mg PO BID (held) 5. Leukocytosis * Blood cultures (04/14/18): follow-up * Urine culture (04/14/18); no growth * Rocephin 1 gram IV q daily (active since 04/14/18) 6. Anemia * s/p 2 units of PRBC * Ferritin: 31 * s/p EGB 04/15/18 7. History of incisional hernia * Was scheduled for repair last year but was cancelled per surgery note. 8. Prophylactic Measure * Chemical contraindication secondary to suspected GI bleed * Protonix 40mg IV Q12H * Fall risk precaution * Patient advised strongly he is not medically stable for discharge. He was advised he would be leaving against medical advice.
[2018-04-15] MEDS: Morphine 30 mg SR Tab PO SCH (21:07)
--- NOTE | 2018-04-15 23:59 | CARD ---
APPROVED REPORT Date of service: 04/14/2018 EKG Measurement Heart [id number] <Conclusion> Sinus tachycardia with occasional premature ventricular complexes Cannot rule out Anteroseptal infarct, age undetermined Abnormal ECG
[2018-04-16] MEDS: Oxycodone/Acetaminophen 5/325 mg Tab PO PRN ×4 (00:06→17:40)
[2018-04-16] MEDS: Potassium Chloride 20 mEq/15 ml LIQ UD PO SCH ×2 (04:15→10:36)
[2018-04-16 05:45] LABS: BASO # 0.1 K/uL (0.0-0.2); BASO % 0.7 % (0.0-2.0); EOS # 0.1 K/uL (0.0-0.7); EOS % 0.6 % (0.0-4.0); HEMOGLOBIN 10.3 g/dL (12.0-18.0); LYMPH # 3.1 K/uL (1.0-4.3); LYMPH % 21.6 % (20.0-40.0); MEAN CELL VOLUME 90.6 fL (80.0-94.0); MEAN CORPUSCULAR HEMOGLOBIN 30.4 pg (27.0-31.0); MEAN CORPUSCULAR HGB CONC 33.6 g/dL (33.0-37.0); MEAN PLATELET VOLUME 7.5 fL (7.2-11.7); MONO # 1.4 K/uL (0.0-0.8); NEUT # 9.6 K/uL (1.8-7.0); NEUT % 67.1 % (50.0-75.0); RBC 3.38 Mil/uL (4.40-5.90); RED CELL DISTRIBUTION WIDTH 16.9 % (11.5-14.5); WHITE BLOOD COUNT 14.3 K/uL (4.8-10.8)
[2018-04-16 06:38] LABS: ALB/GLOB RATIO 1.2 (1.0-2.1); ALBUMIN 3.9 g/dL (3.5-5.0); ALT/SGPT 22 U/L (21-72); AST/SGOT 36 U/L (17-59); BLOOD UREA NITROGEN 19 mg/dL (9-20); CALCIUM 9.2 mg/dl (8.6-10.4); GFR NON-AFRICAN AMERICAN > 60
--- NOTE | 2018-04-16 08:20 | CP.PCM.PN ---
Subjective - Date & Time of Evaluation Date of Evaluation: 04/16/18 Time of Evaluation: 08:18 - Subjective Subjective: covering Dr radford f/u GI bleed. No melena, RB, CP, SOB, WILDE, cough, abdom pain, he,aturia, hemoptysis Objective - Vital Signs/Intake and Output Vital Signs (last 24 hours): Temp Pulse Resp BP Pulse Ox 98.7 F 78 14 161/71 H 100 04/16/18 04:00 04/16/18 06:15 04/16/18 06:15 04/16/18 06:15 04/16/18 06:15 Intake and Output: 04/16/18 04/16/18 06:59 18:59 Intake Total 500 Output Total 1100 Balance -600 - Medications Medications: Current Medications Diltiazem HCl (Cardizem) 60 mg PO TID [facility] Last Admin: 04/15/18 18:18 Dose: 60 mg Docusate Sodium (Colace) 100 mg PO TID [facility] Last Admin: 04/15/18 18:19 Dose: Not Given Finasteride (Proscar) 5 mg PO DAILY [facility] Gabapentin (Neurontin) 800 mg PO BID [facility] Ceftriaxone Sodium 1 gm/ (Sodium Chloride) 100 mls @ 100 mls/hr IVPB Q24H [facility]; Protocol Last Admin: 04/15/18 18:20 Dose: 100 mls/hr Influenza Virus Vaccine (Fluzone Quad [id number]) 60 mcg IM .ONCE ONE Stop: 04/17/18 10:01 Morphine Sulfate (Morphine Extended Release Tab) 30 mg PO Q12 [facility] Last Admin: 04/15/18 21:07 Dose: 30 mg Nicotine (Nicoderm Cq) 1 patch TD DAILY [facility] Last Admin: 04/15/18 10:56 Dose: Not Given Oxycodone/Acetaminophen (Percocet 5/325 Mg Tab) 1 tab PO Q6H PRN PRN Reason: Pain, moderate (4-7) Stop: 04/18/18 08:54 Last Admin: 04/16/18 06:02 Dose: 1 tab Pantoprazole Sodium (Protonix Inj) 40 mg IVP Q12H [facility] Last Admin: 04/15/18 21:08 Dose: 40 mg Pneumococcal Polyvalent Vaccine (Pneumovax 23 Vaccine) 0.5 ml IM .ONCE ONE Stop: 04/17/18 10:01 Potassium Chloride (Potassium Chloride Oral Soln) 40 meq PO Q6H [facility] Stop: 04/16/18 10:31 Last Admin: 04/16/18 04:15 Dose: 40 meq Sennosides (Senokot Tab) 8.6 mg PO DAILY [facility] Last Admin: 04/15/18 09:12 Dose: 8.6 mg Tamsulosin HCl (Flomax) 0.4 mg PO DAILY [facility] - Labs Labs: 04/16/18 05:34 04/16/18 05:34 PT 13.6 SECONDS (9.7-12.2) H 04/14/18 19:04 INR 1.2 04/14/18 19:04 APTT 29 SECONDS (21-34) 04/14/18 19:04 - Constitutional Appears: Non-toxic Assessment and Plan (1) GI bleed Assessment & Plan: EGD- esophagitis. Hb is stable after 2 U transfusion. Rec- check Hb, consider colonosocpy. Status: Acute (2) Incisional hernia Status: Acute (3) Melena Status: Acute
--- NOTE | 2018-04-16 08:26 | CP.PCM.PN ---
Subjective - Date & Time of Evaluation Date of Evaluation: 04/16/18 Time of Evaluation: 08:00 - Subjective Subjective: Medical Attending Note: Patient seen and examined. Patient denies headache, denies chest pain, denies palpitations, denies shortness of breathe, denies abdominal pain, denies nausea, denies vomitting reports neck pains, reports hip pains. Patient had 2 bowel movements over night, none black per nursing staff. Patient to start clear diet. Objective - Vital Signs/Intake and Output Vital Signs (last 24 hours): Temp Pulse Resp BP Pulse Ox 98.7 F 78 14 161/71 H 100 04/16/18 04:00 04/16/18 06:15 04/16/18 06:15 04/16/18 06:15 04/16/18 06:15 Intake and Output: 04/16/18 04/16/18 06:59 18:59 Intake Total 500 Output Total 1100 Balance -600 - Medications Medications: Current Medications Diltiazem HCl (Cardizem) 60 mg PO TID [facility] Last Admin: 04/15/18 18:18 Dose: 60 mg Docusate Sodium (Colace) 100 mg PO TID [facility] Last Admin: 04/15/18 18:19 Dose: Not Given Finasteride (Proscar) 5 mg PO DAILY [facility] Gabapentin (Neurontin) 800 mg PO BID [facility] Ceftriaxone Sodium 1 gm/ (Sodium Chloride) 100 mls @ 100 mls/hr IVPB Q24H [facility]; Protocol Last Admin: 04/15/18 18:20 Dose: 100 mls/hr Influenza Virus Vaccine (Fluzone Quad [id number]) 60 mcg IM .ONCE ONE Stop: 04/17/18 10:01 Morphine Sulfate (Morphine Extended Release Tab) 30 mg PO Q12 [facility] Last Admin: 04/15/18 21:07 Dose: 30 mg Nicotine (Nicoderm Cq) 1 patch TD DAILY [facility] Last Admin: 04/15/18 10:56 Dose: Not Given Oxycodone/Acetaminophen (Percocet 5/325 Mg Tab) 1 tab PO Q6H PRN PRN Reason: Pain, moderate (4-7) Stop: 04/18/18 08:54 Last Admin: 04/16/18 06:02 Dose: 1 tab Pantoprazole Sodium (Protonix Inj) 40 mg IVP Q12H [facility] Last Admin: 04/15/18 21:08 Dose: 40 mg Pneumococcal Polyvalent Vaccine (Pneumovax 23 Vaccine) 0.5 ml IM .ONCE ONE Stop: 04/17/18 10:01 Potassium Chloride (Potassium Chloride Oral Soln) 40 meq PO Q6H [facility] Stop: 04/16/18 10:31 Last Admin: 04/16/18 04:15 Dose: 40 meq Sennosides (Senokot Tab) 8.6 mg PO DAILY [facility] Last Admin: 04/15/18 09:12 Dose: 8.6 mg Tamsulosin HCl (Flomax) 0.4 mg PO DAILY [facility] - Labs Labs: 04/16/18 05:34 04/16/18 05:34 PT 13.6 SECONDS (9.7-12.2) H 04/14/18 19:04 INR 1.2 04/14/18 19:04 APTT 29 SECONDS (21-34) 04/14/18 19:04 - Constitutional Appears: Non-toxic, No Acute Distress - Head Exam Head Exam: NORMAL INSPECTION - Eye Exam Eye Exam: EOMI - ENT Exam ENT Exam: Mucous Membranes Moist - Respiratory Exam Respiratory Exam: Clear to Ausculation Bilateral, NORMAL BREATHING PATTERN. absent: Rales, Rhonchi, Wheezes - Cardiovascular Exam Cardiovascular Exam: REGULAR RHYTHM, +S1, +S2 - GI/Abdominal Exam GI & Abdominal Exam: Soft, Hernia, Normal Bowel Sounds. absent: Distended, Firm, Guarding, Rigid, Tenderness, Rebound - Extremities Exam Extremities Exam: absent: Pedal Edema, Tenderness - Neurological Exam Neurological Exam: Alert, Awake, Oriented x3 - Psychiatric Exam Psychiatric exam: Normal Affect, Normal Mood - Skin Skin Exam: Dry, Intact, Normal Color, Warm Assessment and Plan (1) GI bleed Status: Acute (2) Prophylactic measure Status: Acute Attending/Attestation - Attestation I have personally seen and examined this patient.: Yes I have fully participated in the care of the patient.: Yes I have reviewed all pertinent clinical information, including history, physical exam and plan: Yes Notes (Text): 1. GI Bleed Esophagitits Black Stools Assessment/plan * Dr. Best on board help appreciated * Dr. Rebollar on board help appreciated * CT abdomen/Pelvis: evaluation of the bowel is limited in the absence of oral contrast. Modertae dilatation of the fluid filled stomach and proximal and mid small bowel loops. The distal small bowel loops are decompressed. Findings are nonspecific and could be related to developing acute small obstruction or onspecfici infectious/inflammatory enteritis. Colonic diverticulosis without CT evidence of acute diverticulitis. * Abdominal Xray (04/14/18): no bowel obstruction or free air present * Abdominal xray (04/15/18): no active disease * EGD (04/15/18): la grade B esophagitis with no bleeding was found. No biopsies or other specimens were collected for this exam. No gross lesions were noted in the gastric fundus and in the gastric antrum. A medium amount of food mixed with dark liquid in the gastric body. 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 No gross lesions were noted in the second portion of the duodenum. * Patient received 2 units of PRBC during hospitalization. * Pending colonoscopy-->to be determine by GI 2. Hypokalemia * replete * monitor 3. Current smoker * patient advised to stop smoking * Nicoderm patch daily 4. Chronic Pain * As outpatient per daughter patient is receiving the following: * Morphine ER 30mg PO BID * Percocet 5/325 1 tab PO Q6H * Gabapentin 800mg PO BID * Baclofen 10mg tid * Celebrex 200mg PO BID (held) * Cardizem 60mg PO TID (Restarted) * Cilastozol 50mg PO BID (held) 5. Leukocytosis * Blood cultures (04/14/18): follow-up * Urine culture (04/14/18); no growth * Rocephin 1 gram IV q daily (active since 04/14/18) * Downtrending 6. Anemia * s/p 2 units of PRBC * Ferritin: 31 * s/p EGB 04/15/18 7. History of incisional hernia * Was scheduled for repair last year but was cancelled per surgery note. 8. Prophylactic Measure * Chemical contraindication secondary to suspected GI bleed * Protonix 40mg IV Q12H * Fall risk precaution * Patient advised strongly he is not medically stable for discharge. He was advi sed he would be leaving against medical advice. * Reconsult PT/OT
[2018-04-16] MEDS: Morphine 30 mg SR Tab PO SCH ×2 (09:27→21:08)
[2018-04-16] MEDS ORDERED: Baclofen 5 mg Tab PO SCH (10:00)
[2018-04-16] MEDS ORDERED: DiphenhydrAMINE 50 mg/ml Inj IVP ONE ×2 (20:00→22:00)
--- NOTE | 2018-04-16 22:43 | CP.PCM.CON ---
History of Present Illness - History of Present Illness History of Present Illness: 77 Male admitted for Anemia GIB? s/p Transfusion Denies chest and dyspnea Patient for Pro Op Check stress test and ECHO Objective - Vital Signs/Intake and Output Vital Signs (last 24 hours): Temp Pulse Resp BP Pulse Ox 98.7 F 78 14 161/71 H 100 04/16/18 04:00 04/16/18 06:15 04/16/18 06:15 04/16/18 06:15 04/16/18 06:15 Intake and Output: 04/16/18 04/16/18 06:59 18:59 Intake Total 500 Output Total 1100 Balance -600 - Medications Medications: Current Medications Diltiazem HCl (Cardizem) 60 mg PO TID [facility] Last Admin: 04/15/18 18:18 Dose: 60 mg Docusate Sodium (Colace) 100 mg PO TID [facility] Last Admin: 04/15/18 18:19 Dose: Not Given Finasteride (Proscar) 5 mg PO DAILY [facility] Gabapentin (Neurontin) 800 mg PO BID [facility] Ceftriaxone Sodium 1 gm/ (Sodium Chloride) 100 mls @ 100 mls/hr IVPB Q24H [facility]; Protocol Last Admin: 04/15/18 18:20 Dose: 100 mls/hr Influenza Virus Vaccine (Fluzone Quad 8736-3604) 60 mcg IM .ONCE ONE Stop: 04/17/18 10:01 Morphine Sulfate (Morphine Extended Release Tab) 30 mg PO Q12 [facility] Last Admin: 04/15/18 21:07 Dose: 30 mg Nicotine (Nicoderm Cq) 1 patch TD DAILY [facility] Last Admin: 04/15/18 10:56 Dose: Not Given Oxycodone/Acetaminophen (Percocet 5/325 Mg Tab) 1 tab PO Q6H PRN PRN Reason: Pain, moderate (4-7) Stop: 04/18/18 08:54 Last Admin: 04/16/18 06:02 Dose: 1 tab Pantoprazole Sodium (Protonix Inj) 40 mg IVP Q12H [facility] Last Admin: 04/15/18 21:08 Dose: 40 mg Pneumococcal Polyvalent Vaccine (Pneumovax 23 Vaccine) 0.5 ml IM .ONCE ONE Stop: 04/17/18 10:01 Potassium Chloride (Potassium Chloride Oral Soln) 40 meq PO Q6H [facility] Stop: 04/16/18 10:31 Last Admin: 04/16/18 04:15 Dose: 40 meq Sennosides (Senokot Tab) 8.6 mg PO DAILY [facility] Last Admin: 04/15/18 09:12 Dose: 8.6 mg Tamsulosin HCl (Flomax) 0.4 mg PO DAILY [facility] - Labs Labs: 04/16/18 05:34 04/16/18 05:34 PT 13.6 SECONDS (9.7-12.2) H 04/14/18 19:04 INR 1.2 04/14/18 19:04 APTT 29 SECONDS (21-34) 04/14/18 19:04 - Constitutional Appears: Non-toxic, No Acute Distress - Head Exam Head Exam: NORMAL INSPECTION - Eye Exam Eye Exam: EOMI - ENT Exam ENT Exam: Mucous Membranes Moist - Respiratory Exam Respiratory Exam: Clear to Ausculation Bilateral, NORMAL BREATHING PATTERN. absent: Rales, Rhonchi, Wheezes - Cardiovascular Exam Cardiovascular Exam: REGULAR RHYTHM, +S1, +S2 - GI/Abdominal Exam GI & Abdominal Exam: Soft, Hernia, Normal Bowel Sounds. absent: Distended, Firm, Guarding, Rigid, Tenderness, Rebound - Extremities Exam Extremities Exam: absent: Pedal Edema, Tenderness - Neurological Exam Neurological Exam: Alert, Awake, Oriented x3 - Psychiatric Exam Psychiatric exam: Normal Affect, Normal Mood - Skin Skin Exam: Dry, Intact, Normal Color, Warm Assessment and Plan (1) GI bleed Status: Acute (2) Prophylactic measure Status: Acute Attending/Attestation - Attestation I have personally seen and examined this patient.: Yes I have fully participated in the care of the patient.: Yes I have reviewed all pertinent clinical information, including history, physical exam and plan: Yes Notes (Text): 1. GI Bleed Esophagitits Black Stools Assessment/plan * Dr. Best on board help appreciated * Dr. Rebollar on board help appreciated * CT abdomen/Pelvis: evaluation of the bowel is limited in the absence of oral contrast. Modertae dilatation of the fluid filled stomach and proximal and mid small bowel loops. The distal small bowel loops are decompressed. Findings are nonspecific and could be related to developing acute small obstruction or onspecfici infectious/inflammatory enteritis. Colonic diverticulosis without CT evidence of acute diverticulitis. * Abdominal Xray (04/14/18): no bowel obstruction or free air present * Abdominal xray (04/15/18): no active disease * EGD (04/15/18): la grade B esophagitis with no bleeding was found. No biopsies or other specimens were collected for this exam. No gross lesions were noted in the gastric fundus and in the gastric antrum. A medium amount of food mixed with dark liquid in the gastric body. 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 No gross lesions were noted in the second portion of the duodenum. * Patient received 2 units of PRBC during hospitalization. * Pending colonoscopy-->to be determine by GI 2. Hypokalemia * replete * monitor 3. Current smoker * patient advised to stop smoking * Nicoderm patch daily 4. Chronic Pain * As outpatient per daughter patient is receiving the following: * Morphine ER 30mg PO BID * Percocet 5/325 1 tab PO Q6H * Gabapentin 800mg PO BID * Baclofen 10mg tid * Celebrex 200mg PO BID (held) * Cardizem 60mg PO TID (Restarted) * Cilastozol 50mg PO BID (held) 5. Leukocytosis * Blood cultures (04/14/18): follow-up * Urine culture (04/14/18); no growth * Rocephin 1 gram IV q daily (active since 04/14/18) * Downtrending 6. Anemia * s/p 2 units of PRBC * Ferritin: 31 * s/p EGB 04/15/18 7. History of incisional hernia * Was scheduled for repair last year but was cancelled per surgery note. 8. Prophylactic Measure * Chemical contraindication secondary to suspected GI bleed * Protonix 40mg IV Q12H * Fall risk precaution * Patient advised strongly he is not medically stable for discharge. He was advised he would be leaving against medical advice. * Reconsult PT/OT Medical mgt for CAD now Past Patient History - Infectious Disease Hx of Infectious Diseases: None - Past Medical History & Family History Past Medical History?: Yes - Past Social History Smoking Status: Current Some Days Smoker - CARDIAC Hx Hypercholesterolemia: Yes Hx Hypertension: Yes - PULMONARY Hx Respiratory Disorders: No - NEUROLOGICAL Hx Neurological Disorder: No - HEENT Hx HEENT Problems: No - RENAL Hx Chronic Kidney Disease: No - ENDOCRINE/METABOLIC Hx Endocrine Disorders: No - HEMATOLOGICAL/ONCOLOGICAL Hx Blood Disorders: No - INTEGUMENTARY Hx Dermatological Problems: No - MUSCULOSKELETAL/RHEUMATOLOGICAL Hx Musculoskeletal Disorders: No - GASTROINTESTINAL Other/Comment: chronic constipation - GENITOURINARY/GYNECOLOGICAL Hx Genitourinary Disorders: No - PSYCHIATRIC Hx Substance Use: No - SURGICAL HISTORY Hx Appendectomy: Yes - ANESTHESIA Hx Anesthesia: Yes Hx Anesthesia Reactions: No Hx Malignant Hyperthermia: No Meds Allergies/Adverse Reactions: Allergies Allergy/AdvReac Type Severity Reaction Status Date / Time No Known Allergies Allergy Verified 04/14/18 10:06 - Medications Medications: Current Medications Baclofen (Lioresal) 10 mg PO BID [facility] Last Admin: 04/16/18 17:39 Dose: 10 mg Diltiazem HCl (Cardizem) 60 mg PO TID [facility] Last Admin: 04/16/18 17:40 Dose: 60 mg Docusate Sodium (Colace) 100 mg PO TID [facility] Last Admin: 04/16/18 17:39 Dose: 100 mg Finasteride (Proscar) 5 mg PO DAILY [facility] Last Admin: 04/16/18 10:36 Dose: 5 mg Gabapentin (Neurontin) 800 mg PO BID [facility] Last Admin: 04/16/18 17:39 Dose: 800 mg Ceftriaxone Sodium 1 gm/ (Sodium Chloride) 100 mls @ 100 mls/hr IVPB Q24H [facility]; Protocol Last Admin: 04/16/18 17:42 Dose: 100 mls/hr Influenza Virus Vaccine (Fluzone Quad [id number]) 60 mcg IM .ONCE ONE Stop: 04/17/18 10:01 Morphine Sulfate (Morphine Extended Release Tab) 30 mg PO Q12 [facility] Last Admin: 04/16/18 21:08 Dose: 30 mg Nicotine (Nicoderm Cq) 1 patch TD DAILY [facility] Last Admin: 04/16/18 09:26 Dose: 1 patch Oxycodone/Acetaminophen (Percocet 5/325 Mg Tab) 1 tab PO Q6H PRN PRN Reason: Pain, moderate (4-7) Stop: 04/18/18 08:54 Last Admin: 04/16/18 17:40 Dose: 1 tab Pantoprazole Sodium (Protonix Inj) 40 mg IVP Q12H [facility] Last Admin: 04/16/18 21:08 Dose: 40 mg Pneumococcal Polyvalent Vaccine (Pneumovax 23 Vaccine) 0.5 ml IM .ONCE ONE Stop: 04/17/18 10:01 Sennosides (Senokot Tab) 8.6 mg PO DAILY [facility] Last Admin: 04/16/18 10:36 Dose: 8.6 mg Tamsulosin HCl (Flomax) 0.4 mg PO DAILY [facility] Last Admin: 04/16/18 10:35 Dose: 0.4 mg Results - Vital Signs Recent Vital Signs: Last Vital Signs Temp 98.4 F 04/16/18 08:00 Pulse 65 04/16/18 22:15 Resp 13 04/16/18 22:15 BP 113/53 L 04/16/18 22:15 Pulse Ox 97 04/16/18 22:15 - Labs Result Diagrams: 04/17/18 05:40 04/17/18 05:40 Labs: Laboratory Results - last 24 hr 04/15/18 04/16/18 04/16/18 23:50 05:20 05:34 WBC 14.3 H RBC 3.38 L Hgb 10.3 L Hct 30.7 L MCV 90.6 MCH 30.4 MCHC 33.6 RDW 16.9 H Plt Count 245 MPV 7.5 Neut % (Auto) 67.1 Lymph % (Auto) 21.6 [place] % (Auto) 10.0 Eos % (Auto) 0.6 Baso % (Auto) 0.7 Neut # (Auto) 9.6 H Lymph # (Auto) 3.1 [place] # (Auto) 1.4 H Eos # (Auto) 0.1 Baso # (Auto) 0.1 Sodium Potassium Chloride Carbon Dioxide Anion Gap BUN Creatinine Est GFR ( Amer) Est GFR (Non-Af Amer) POC Glucose (mg/dL) 94 98 Random Glucose Calcium Phosphorus Magnesium Total Bilirubin AST ALT Alkaline Phosphatase Total Protein Albumin Globulin Albumin/Globulin Ratio Procalcitonin 04/16/18 04/16/18 04/16/18 05:34 05:34 13:37 WBC RBC Hgb Hct MCV MCH MCHC RDW Plt Count MPV Neut % (Auto) Lymph % (Auto) [place] % (Auto) Eos % (Auto) Baso % (Auto) Neut # (Auto) Lymph # (Auto) [place] # (Auto) Eos # (Auto) Baso # (Auto) Sodium 139 Potassium 4.5 Chloride 108 H Carbon Dioxide 18 L Anion Gap 17 BUN 19 Creatinine 0.9 Est GFR ( Amer) > 60 Est GFR (Non-Af Amer) > 60 POC Glucose (mg/dL) 113 H Random Glucose 114 H Calcium 9.2 Phosphorus 2.1 L Magnesium 1.9 Total Bilirubin 0.7 AST 36 ALT 22 Alkaline Phosphatase 47 Total Protein 7.2 Albumin 3.9 Globulin 3.3 Albumin/Globulin Ratio 1.2 Procalcitonin 0.10 L 04/16/18 17:19 WBC RBC Hgb Hct MCV MCH MCHC RDW Plt Count MPV Neut % (Auto) Lymph % (Auto) [place] % (Auto) Eos % (Auto) Baso % (Auto) Neut # (Auto) Lymph # (Auto) [place] # (Auto) Eos # (Auto) Baso # (Auto) Sodium Potassium Chloride Carbon Dioxide Anion Gap BUN Creatinine Est GFR ( Amer) Est GFR (Non-Af Amer) POC Glucose (mg/dL) 149 H Random Glucose Calcium Phosphorus Magnesium Total Bilirubin AST ALT Alkaline Phosphatase Total Protein Albumin Globulin Albumin/Globulin Ratio Procalcitonin
[2018-04-17] MEDS: Oxycodone/Acetaminophen 5/325 mg Tab PO PRN ×4 (01:40→20:32)
[2018-04-17 05:44] LABS: BASO # 0.1 K/uL (0.0-0.2); BASO % 0.5 % (0.0-2.0); EOS # 0.3 K/uL (0.0-0.7); EOS % 2.8 % (0.0-4.0); HEMOGLOBIN 9.1 g/dL (12.0-18.0); LYMPH % 28.5 % (20.0-40.0); MEAN CELL VOLUME 91.5 fL (80.0-94.0); MEAN CORPUSCULAR HGB CONC 33.9 g/dL (33.0-37.0); MEAN PLATELET VOLUME 7.4 fL (7.2-11.7); MONO # 0.9 K/uL (0.0-0.8); MONO % 9.1 % (0.0-10.0); NEUT # 6.2 K/uL (1.8-7.0); NEUT % 59.1 % (50.0-75.0); RBC 2.94 Mil/uL (4.40-5.90); RED CELL DISTRIBUTION WIDTH 16.5 % (11.5-14.5); WHITE BLOOD COUNT 10.4 K/uL (4.8-10.8)
[2018-04-17 05:57] LABS: ALB/GLOB RATIO 1.1 (1.0-2.1); ALBUMIN 3.2 g/dL (3.5-5.0); ALT/SGPT 23 U/L (21-72); AST/SGOT 25 U/L (17-59); BLOOD UREA NITROGEN 19 mg/dL (9-20); CALCIUM 8.7 mg/dl (8.6-10.4); GFR NON-AFRICAN AMERICAN > 60
[2018-04-17] MEDS: Morphine 30 mg SR Tab PO SCH ×2 (09:33→21:43)
[2018-04-17] MEDS ORDERED: Pneumococcal 23-Valent Vaccine IM ONE (10:00)
[2018-04-17] MEDS ORDERED: Influenza Vaccine 60 MCG/0.5 ML SYR (3 yr & up) IM ONE (10:00)
--- NOTE | 2018-04-17 11:25 | CP.PCM.PN ---
Subjective - Date & Time of Evaluation Date of Evaluation: 04/17/18 Time of Evaluation: 11:15 - Subjective Subjective: f/u GI bleed. No RB, melena, fever, chills, SZ, LOC, WILDE, cough, abdom pain, WILDE, heamturia Covering DR Best Objective - Vital Signs/Intake and Output Vital Signs (last 24 hours): Temp Pulse Resp BP Pulse Ox 98.4 F 94 H 13 113/49 L 99 04/16/18 08:00 04/17/18 08:08 04/17/18 08:08 04/17/18 08:08 04/17/18 00:28 Intake and Output: 04/17/18 04/17/18 06:59 18:59 Intake Total 200 Output Total 700 Balance -500 - Medications Medications: Current Medications Baclofen (Lioresal) 10 mg PO BID [facility] Last Admin: 04/17/18 09:32 Dose: 10 mg Diltiazem HCl (Cardizem) 60 mg PO TID [facility] Last Admin: 04/17/18 09:33 Dose: 60 mg Docusate Sodium (Colace) 100 mg PO TID [facility] Last Admin: 04/17/18 09:32 Dose: 100 mg Finasteride (Proscar) 5 mg PO DAILY [facility] Last Admin: 04/17/18 09:32 Dose: 5 mg Gabapentin (Neurontin) 800 mg PO BID [facility] Last Admin: 04/17/18 09:32 Dose: 800 mg Ceftriaxone Sodium 1 gm/ (Sodium Chloride) 100 mls @ 100 mls/hr IVPB Q24H [facility]; Protocol Last Admin: 04/16/18 17:42 Dose: 100 mls/hr Influenza Virus Vaccine (Fluzone Quad [id number]) 60 mcg IM .ONCE ONE Stop: 04/21/18 10:01 Morphine Sulfate (Morphine Extended Release Tab) 30 mg PO Q12 [facility] Last Admin: 04/17/18 09:33 Dose: 30 mg Nicotine (Nicoderm Cq) 1 patch TD DAILY [facility] Last Admin: 04/17/18 09:33 Dose: Not Given Oxycodone/Acetaminophen (Percocet 5/325 Mg Tab) 1 tab PO Q6H PRN PRN Reason: Pain, moderate (4-7) Stop: 04/18/18 08:54 Last Admin: 04/17/18 07:55 Dose: 1 tab Pantoprazole Sodium (Protonix Inj) 40 mg IVP Q12H [facility] Last Admin: 04/17/18 08:00 Dose: 40 mg Pneumococcal Polyvalent Vaccine (Pneumovax 23 Vaccine) 0.5 ml IM .ONCE ONE Stop: 04/21/18 10:01 Sennosides (Senokot Tab) 8.6 mg PO DAILY [facility] Last Admin: 04/17/18 09:32 Dose: 8.6 mg Tamsulosin HCl (Flomax) 0.4 mg PO DAILY [facility] Last Admin: 04/17/18 09:32 Dose: 0.4 mg - Labs Labs: 04/17/18 05:40 04/17/18 05:40 PT 13.6 SECONDS (9.7-12.2) H 04/14/18 19:04 INR 1.2 04/14/18 19:04 APTT 29 SECONDS (21-34) 04/14/18 19:04 - Constitutional Appears: Non-toxic - Respiratory Exam Respiratory Exam: Clear to Ausculation Bilateral - Cardiovascular Exam Cardiovascular Exam: Irregular Rhythm - GI/Abdominal Exam GI & Abdominal Exam: Soft, Normal Bowel Sounds. absent: Guarding, Tenderness, Mass - Neurological Exam Neurological Exam: Alert, Awake Assessment and Plan (1) GI bleed Assessment & Plan: HAd melena. BMS now no melena. EGD- esophagitis. Hb down to 9.1. COnsider colonsocopy. Status: Acute (2) Incisional hernia Status: Acute (3) Melena Status: Acute
--- NOTE | 2018-04-17 13:32 | CP.PCM.PN ---
Subjective - Date & Time of Evaluation Date of Evaluation: 04/17/18 Time of Evaluation: 13:25 - Subjective Subjective: Medical attending Note: patient seen and examined. patient denies headache, denies chest pain, denies shortness of breathe, denies abdominal pain, denies nausea, reports over the neck and back. I spoke with his nurse, hemoglobin dropped by 1 and had bowel movement that was soft and black per the nurse. Spoke with Dr. john, recommend for repeat echo and nuclear stress for preop. Unclear when patient's colonoscopy to be scheduled for. Objective - Vital Signs/Intake and Output Vital Signs (last 24 hours): Temp Pulse Resp BP Pulse Ox 98.4 F 103 H 15 112/58 L 99 04/16/18 08:00 04/17/18 12:24 04/17/18 12:24 04/17/18 12:25 04/17/18 00:28 Intake and Output: 04/17/18 04/17/18 06:59 18:59 Intake Total 200 Output Total 700 Balance -500 - Medications Medications: Current Medications Baclofen (Lioresal) 10 mg PO BID [facility] Last Admin: 04/17/18 09:32 Dose: 10 mg Diltiazem HCl (Cardizem) 60 mg PO TID [facility] Last Admin: 04/17/18 09:33 Dose: 60 mg Docusate Sodium (Colace) 100 mg PO TID [facility] Last Admin: 04/17/18 09:32 Dose: 100 mg Finasteride (Proscar) 5 mg PO DAILY [facility] Last Admin: 04/17/18 09:32 Dose: 5 mg Gabapentin (Neurontin) 800 mg PO BID [facility] Last Admin: 04/17/18 09:32 Dose: 800 mg Ceftriaxone Sodium 1 gm/ (Sodium Chloride) 100 mls @ 100 mls/hr IVPB Q24H [facility]; Protocol Last Admin: 04/16/18 17:42 Dose: 100 mls/hr Influenza Virus Vaccine (Fluzone Quad [id number]) 60 mcg IM .ONCE ONE Stop: 04/21/18 10:01 Morphine Sulfate (Morphine Extended Release Tab) 30 mg PO Q12 [facility] Last Admin: 04/17/18 09:33 Dose: 30 mg Nicotine (Nicoderm Cq) 1 patch TD DAILY [facility] Last Admin: 04/17/18 09:33 Dose: Not Given Oxycodone/Acetaminophen (Percocet 5/325 Mg Tab) 1 tab PO Q6H PRN PRN Reason: Pain, moderate (4-7) Stop: 04/18/18 08:54 Last Admin: 04/17/18 07:55 Dose: 1 tab Pantoprazole Sodium (Protonix Inj) 40 mg IVP Q12H [facility] Last Admin: 04/17/18 08:00 Dose: 40 mg Pneumococcal Polyvalent Vaccine (Pneumovax 23 Vaccine) 0.5 ml IM .ONCE ONE Stop: 04/21/18 10:01 Sennosides (Senokot Tab) 8.6 mg PO DAILY [facility] Last Admin: 04/17/18 09:32 Dose: 8.6 mg Tamsulosin HCl (Flomax) 0.4 mg PO DAILY [facility] Last Admin: 04/17/18 09:32 Dose: 0.4 mg - Labs Labs: 04/17/18 05:40 04/17/18 05:40 PT 13.6 SECONDS (9.7-12.2) H 04/14/18 19:04 INR 1.2 04/14/18 19:04 APTT 29 SECONDS (21-34) 04/14/18 19:04 - Constitutional Appears: Non-toxic, No Acute Distress - Head Exam Head Exam: NORMAL INSPECTION - Eye Exam Eye Exam: EOMI - ENT Exam ENT Exam: Mucous Membranes Moist - Respiratory Exam Respiratory Exam: Clear to Ausculation Bilateral, NORMAL BREATHING PATTERN. absent: Rales, Rhonchi, Wheezes - Cardiovascular Exam Cardiovascular Exam: REGULAR RHYTHM, +S1, +S2 - GI/Abdominal Exam GI & Abdominal Exam: Soft, Hernia, Normal Bowel Sounds. absent: Distended, Firm, Guarding, Rigid, Tenderness, Mass, Rebound - Extremities Exam Extremities Exam: absent: Pedal Edema, Tenderness - Neurological Exam Neurological Exam: Alert, Awake, Oriented x3 - Psychiatric Exam Psychiatric exam: Normal Affect, Normal Mood - Skin Skin Exam: Dry, Intact, Normal Color, Warm Assessment and Plan (1) GI bleed Status: Acute (2) Cervical vertebral fusion Status: Chronic (3) Incisional hernia Status: Chronic (4) Lumbar stenosis Status: Chronic (5) Melena Status: Acute (6) Prophylactic measure Status: Acute Attending/Attestation - Attestation I have personally seen and examined this patient.: Yes I have fully participated in the care of the patient.: Yes I have reviewed all pertinent clinical information, including history, physical exam and plan: Yes Notes (Text): 1. GI Bleed Esophagitits Black Stools Assessment/plan * Dr. Best on board help appreciated * Dr. Rebollar on board help appreciated * CT abdomen/Pelvis: evaluation of the bowel is limited in the absence of oral contrast. Modertae dilatation of the fluid filled stomach and proximal and mid small bowel loops. The distal small bowel loops are decompressed. Findings are nonspecific and could be related to developing acute small obstruction or onspecfici infectious/inflammatory enteritis. Colonic diverticulosis without CT evidence of acute diverticulitis. * Abdominal Xray (04/14/18): no bowel obstruction or free air present * Abdominal xray (04/15/18): no active disease * EGD (04/15/18): la grade B esophagitis with no bleeding was found. No biopsies or other specimens were collected for this exam. No gross lesions were noted in the gastric fundus and in the gastric antrum. A medium amount of food mixed with dark liquid in the gastric body. 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 No gross lesions were noted in the second portion of the duodenum. * Patient received 2 units of PRBC during hospitalization. * Pending colonoscopy-->to be determine by GI 2. Hypokalemia * replete * monitor 3. Current smoker * patient advised to stop smoking * Nicoderm patch daily 4. Chronic Pain * As outpatient per daughter patient is receiving the following: * Morphine ER 30mg PO BID * Percocet 5/325 1 tab PO Q6H * Gabapentin 800mg PO BID * Baclofen 10mg tid * Celebrex 200mg PO BID (held) * Cardizem 60mg PO TID * Cilastozol 50mg PO BID (held) 5. Leukocytosis * Blood cultures (04/14/18): no growth * Urine culture (04/14/18): no growth * Rocephin 1 gram IV q daily (active since 04/14/18) * Normalized 6. Anemia * s/p 2 units of PRBC * Ferritin: 31 * s/p EGB 04/15/18 * repeat type and cross 1 unit PRBC if needed 7. History of incisional hernia * Was scheduled for repair last year but was cancelled per surgery note. 8. Preop clearance * Dr John is consulted-->recommend for repeat echo and nuclear stress test; he is aware there is a prior one from 2017 9. Prophylactic Measure * Chemical contraindication secondary to suspected GI bleed * Protonix 40mg IV Q12H * Fall risk precaution * Patient advised strongly he is not medically stable for discharge. He was advised he would be leaving against medical advice. * Reconsult PT/OT
--- NOTE | 2018-04-17 17:45 | CP.PCM.PN ---
Subjective - Date & Time of Evaluation Date of Evaluation: 04/17/18 Time of Evaluation: 10:40 - Subjective Subjective: patient seen and examined. Denies chest pain and dyspnea Repeat echo and nuclear stress for preop. Unclear when patient's colonoscopy to be scheduled for. Objective - Vital Signs/Intake and Output Vital Signs (last 24 hours): Temp Pulse Resp BP Pulse Ox 98.4 F 103 H 15 112/58 L 99 04/16/18 08:00 04/17/18 12:24 04/17/18 12:24 04/17/18 12:25 04/17/18 00:28 Intake and Output: 04/17/18 04/17/18 06:59 18:59 Intake Total 200 Output Total 700 Balance -500 - Medications Medications: Current Medications Baclofen (Lioresal) 10 mg PO BID [facility] Last Admin: 04/17/18 09:32 Dose: 10 mg Diltiazem HCl (Cardizem) 60 mg PO TID [facility] Last Admin: 04/17/18 09:33 Dose: 60 mg Docusate Sodium (Colace) 100 mg PO TID [facility] Last Admin: 04/17/18 09:32 Dose: 100 mg Finasteride (Proscar) 5 mg PO DAILY [facility] Last Admin: 04/17/18 09:32 Dose: 5 mg Gabapentin (Neurontin) 800 mg PO BID [facility] Last Admin: 04/17/18 09:32 Dose: 800 mg Ceftriaxone Sodium 1 gm/ (Sodium Chloride) 100 mls @ 100 mls/hr IVPB Q24H [facility]; Protocol Last Admin: 04/16/18 17:42 Dose: 100 mls/hr Influenza Virus Vaccine (Fluzone Quad [id number]) 60 mcg IM .ONCE ONE Stop: 04/21/18 10:01 Morphine Sulfate (Morphine Extended Release Tab) 30 mg PO Q12 [facility] Last Admin: 04/17/18 09:33 Dose: 30 mg Nicotine (Nicoderm Cq) 1 patch TD DAILY [facility] Last Admin: 04/17/18 09:33 Dose: Not Given Oxycodone/Acetaminophen (Percocet 5/325 Mg Tab) 1 tab PO Q6H PRN PRN Reason: Pain, moderate (4-7) Stop: 04/18/18 08:54 Last Admin: 04/17/18 07:55 Dose: 1 tab Pantoprazole Sodium (Protonix Inj) 40 mg IVP Q12H [facility] Last Admin: 04/17/18 08:00 Dose: 40 mg Pneumococcal Polyvalent Vaccine (Pneumovax 23 Vaccine) 0.5 ml IM .ONCE ONE Stop: 04/21/18 10:01 Sennosides (Senokot Tab) 8.6 mg PO DAILY [facility] Last Admin: 04/17/18 09:32 Dose: 8.6 mg Tamsulosin HCl (Flomax) 0.4 mg PO DAILY [facility] Last Admin: 04/17/18 09:32 Dose: 0.4 mg - Labs Labs: 04/17/18 05:40 04/17/18 05:40 PT 13.6 SECONDS (9.7-12.2) H 04/14/18 19:04 INR 1.2 04/14/18 19:04 APTT 29 SECONDS (21-34) 04/14/18 19:04 - Constitutional Appears: Non-toxic, No Acute Distress - Head Exam Head Exam: NORMAL INSPECTION - Eye Exam Eye Exam: EOMI - ENT Exam ENT Exam: Mucous Membranes Moist - Respiratory Exam Respiratory Exam: Clear to Ausculation Bilateral, NORMAL BREATHING PATTERN. absent: Rales, Rhonchi, Wheezes - Cardiovascular Exam Cardiovascular Exam: REGULAR RHYTHM, +S1, +S2 - GI/Abdominal Exam GI & Abdominal Exam: Soft, Hernia, Normal Bowel Sounds. absent: Distended, Firm, Guarding, Rigid, Tenderness, Mass, Rebound - Extremities Exam Extremities Exam: absent: Pedal Edema, Tenderness - Neurological Exam Neurological Exam: Alert, Awake, Oriented x3 - Psychiatric Exam Psychiatric exam: Normal Affect, Normal Mood - Skin Skin Exam: Dry, Intact, Normal Color, Warm Assessment and Plan (1) GI bleed Status: Acute (2) Cervical vertebral fusion Status: Chronic (3) Incisional hernia Status: Chronic (4) Lumbar stenosis Status: Chronic (5) Melena Status: Acute (6) Prophylactic measure Status: Acute Attending/Attestation - Attestation I have personally seen and examined this patient.: Yes I have fully participated in the care of the patient.: Yes I have reviewed all pertinent clinical information, including history, physical exam and plan: Yes Notes (Text): 1. GI Bleed Esophagitits Black Stools Assessment/plan * Dr. Best on board help appreciated * Dr. Rebollar on board help appreciated * CT abdomen/Pelvis: evaluation of the bowel is limited in the absence of oral contrast. Modertae dilatation of the fluid filled stomach and proximal and mid small bowel loops. The distal small bowel loops are decompressed. Findings are nonspecific and could be related to developing acute small obstruction or onspecfici infectious/inflammatory enteritis. Colonic diverticulosis without CT evidence of acute diverticulitis. * Abdominal Xray (04/14/18): no bowel obstruction or free air present * Abdominal xray (04/15/18): no active disease * EGD (04/15/18): la grade B esophagitis with no bleeding was found. No biopsies or other specimens were collected for this exam. No gross lesions were noted in the gastric fundus and in the gastric antrum. A medium amount of food mixed with dark liquid in the gastric body. 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 No gross lesions were noted in the second portion of the duodenum. * Patient received 2 units of PRBC during hospitalization. * Pending colonoscopy-->to be determine by GI 2. Hypokalemia * replete * monitor 3. Current smoker * patient advised to stop smoking * Nicoderm patch daily 4. Chronic Pain * As outpatient per daughter patient is receiving the following: * Morphine ER 30mg PO BID * Percocet 5/325 1 tab PO Q6H * Gabapentin 800mg PO BID * Baclofen 10mg tid * Celebrex 200mg PO BID (held) * Cardizem 60mg PO TID * Cilastozol 50mg PO BID (held) 5. Leukocytosis * Blood cultures (04/14/18): no growth * Urine culture (04/14/18): no growth * Rocephin 1 gram IV q daily (active since 04/14/18) * Normalized 6. Anemia * s/p 2 units of PRBC * Ferritin: 31 * s/p EGB 04/15/18 * repeat type and cross 1 unit PRBC if needed 7. History of incisional hernia * Was scheduled for repair last year but was cancelled per surgery note. 8. Preop clearance * Dr Rubio is consulted-->recommend for repeat echo and nuclear stress test; he is aware there is a prior one from 2017 9. Prophylactic Measure * Chemical contraindication secondary to suspected GI bleed * Protonix 40mg IV Q12H * Fall risk precaution * Patient advised strongly he is not medically stable for discharge. He was advised he would be leaving against medical advice. * Reconsult PT/OT Objective - Vital Signs/Intake and Output Vital Signs (last 24 hours): Temp Pulse Resp BP Pulse Ox 98.2 F 98 H 16 91/52 L 99 04/17/18 12:24 04/17/18 16:15 04/17/18 16:15 04/17/18 16:15 04/17/18 00:28 Intake and Output: 04/17/18 04/17/18 06:59 18:59 Intake Total 200 740 Output Total 700 Balance -500 740 - Medications Medications: Current Medications Baclofen (Lioresal) 10 mg PO BID [facility] Last Admin: 04/17/18 09:32 Dose: 10 mg Diltiazem HCl (Cardizem) 60 mg PO TID [facility] Last Admin: 04/17/18 13:53 Dose: 60 mg Docusate Sodium (Colace) 100 mg PO TID [facility] Last Admin: 04/17/18 13:54 Dose: Not Given Finasteride (Proscar) 5 mg PO DAILY [facility] Last Admin: 04/17/18 09:32 Dose: 5 mg Gabapentin (Neurontin) 800 mg PO BID [facility] Last Admin: 04/17/18 09:32 Dose: 800 mg Ceftriaxone Sodium 1 gm/ (Sodium Chloride) 100 mls @ 100 mls/hr IVPB Q24H [facility]; Protocol Last Admin: 04/16/18 17:42 Dose: 100 mls/hr Influenza Virus Vaccine (Fluzone Quad 0929-4814) 60 mcg IM .ONCE ONE Stop: 04/21/18 10:01 Morphine Sulfate (Morphine Extended Release Tab) 30 mg PO Q12 [facility] Last Admin: 04/17/18 09:33 Dose: 30 mg Nicotine (Nicoderm Cq) 1 patch TD DAILY [facility] Last Admin: 04/17/18 09:33 Dose: Not Given Oxycodone/Acetaminophen (Percocet 5/325 Mg Tab) 1 tab PO Q6H PRN PRN Reason: Pain, moderate (4-7) Stop: 04/18/18 08:54 Last Admin: 04/17/18 13:53 Dose: 1 tab Pantoprazole Sodium (Protonix Inj) 40 mg IVP Q12H [facility] Last Admin: 04/17/18 08:00 Dose: 40 mg Pneumococcal Polyvalent Vaccine (Pneumovax 23 Vaccine) 0.5 ml IM .ONCE ONE Stop: 04/21/18 10:01 Sennosides (Senokot Tab) 8.6 mg PO DAILY [facility] Last Admin: 04/17/18 09:32 Dose: 8.6 mg Tamsulosin HCl (Flomax) 0.4 mg PO DAILY [facility] Last Admin: 04/17/18 09:32 Dose: 0.4 mg - Labs Labs: 04/17/18 05:40 04/17/18 05:40 PT 13.6 SECONDS (9.7-12.2) H 04/14/18 19:04 INR 1.2 04/14/18 19:04 APTT 29 SECONDS (21-34) 04/14/18 19:04
[2018-04-18] MEDS: Oxycodone/Acetaminophen 5/325 mg Tab PO PRN ×6 (05:31→23:08)
[2018-04-18 06:35] LABS: BASO # 0.1 K/uL (0.0-0.2); BASO % 0.3 % (0.0-2.0); EOS # 0.4 K/uL (0.0-0.7); EOS % 1.6 % (0.0-4.0); HEMOGLOBIN 9.6 g/dL (12.0-18.0); LYMPH # 1.7 K/uL (1.0-4.3); LYMPH % 7.4 % (20.0-40.0); MEAN CELL VOLUME 92.4 fL (80.0-94.0); MEAN CORPUSCULAR HEMOGLOBIN 30.6 pg (27.0-31.0); MEAN CORPUSCULAR HGB CONC 33.1 g/dL (33.0-37.0); MEAN PLATELET VOLUME 7.8 fL (7.2-11.7); MONO % 13.1 % (0.0-10.0); NEUT # 18.1 K/uL (1.8-7.0); NEUT % 77.6 % (50.0-75.0); PLATELET COUNT 261 K/uL (130-400); RBC 3.13 Mil/uL (4.40-5.90); RED CELL DISTRIBUTION WIDTH 16.4 % (11.5-14.5); WHITE BLOOD COUNT 23.3 K/uL (4.8-10.8)
[2018-04-18 06:51] LABS: ALB/GLOB RATIO 1.1 (1.0-2.1); ALBUMIN 3.4 g/dL (3.5-5.0); ALT/SGPT 28 U/L (21-72); AST/SGOT 23 U/L (17-59); BLOOD UREA NITROGEN 17 mg/dL (9-20); CALCIUM 8.8 mg/dl (8.6-10.4); GFR NON-AFRICAN AMERICAN > 60
[2018-04-18] MEDS ORDERED: Caffeine Citrated **INJ** 20 MG/ML IV ONE (07:55)
[2018-04-18 08:41] LABS: EOSINOPHIL 1 % (0-4); LYMPHOCYTE 6 % (20-40); MONOCYTE 9 % (0-10); NEUTROPHIL 84 % (50-75); TOTAL CELLS COUNTED 100
[2018-04-18 08:42] LABS: ANISOCYTOSIS SLIGHT; PLATELET ESTIMATE NORMAL (NORMAL)
[2018-04-18 08:43] LABS: HYPOCHROMIC SLIGHT; POLYCHROMIC SLIGHT
--- NOTE | 2018-04-18 10:06 | CP.PCM.PN ---
Subjective - Date & Time of Evaluation Date of Evaluation: 04/18/18 Time of Evaluation: 10:03 - Subjective Subjective: Patient denies having nausea, vomitng, abdominal pain. He had two bowel movements since last night; the first was described as black and the second was more brown. Objective - Vital Signs/Intake and Output Vital Signs (last 24 hours): Temp Pulse Resp BP Pulse Ox 98.5 F 98 H 15 126/61 99 04/17/18 20:00 04/18/18 09:04 04/17/18 22:00 04/17/18 18:15 04/17/18 00:28 Intake and Output: 04/18/18 04/18/18 06:59 18:59 Intake Total 200 420 Balance 200 420 - Medications Medications: Current Medications Baclofen (Lioresal) 10 mg PO BID [facility] Last Admin: 04/17/18 17:53 Dose: 10 mg Diltiazem HCl (Cardizem) 60 mg PO TID [facility] Last Admin: 04/17/18 17:53 Dose: 60 mg Docusate Sodium (Colace) 100 mg PO TID [facility] Last Admin: 04/17/18 17:57 Dose: Not Given Finasteride (Proscar) 5 mg PO DAILY [facility] Last Admin: 04/17/18 09:32 Dose: 5 mg Gabapentin (Neurontin) 800 mg PO BID [facility] Last Admin: 04/17/18 17:53 Dose: 800 mg Ceftriaxone Sodium 1 gm/ (Sodium Chloride) 100 mls @ 100 mls/hr IVPB DAILY [facility]; Protocol Influenza Virus Vaccine (Fluzone Quad 1055-3111) 60 mcg IM .ONCE ONE Stop: 04/21/18 10:01 Morphine Sulfate (Morphine Extended Release Tab) 30 mg PO Q12 [facility] Last Admin: 04/17/18 21:43 Dose: 30 mg Nicotine (Nicoderm Cq) 1 patch TD DAILY [facility] Last Admin: 04/17/18 09:33 Dose: Not Given Oxycodone/Acetaminophen (Percocet 5/325 Mg Tab) 1 tab PO Q8 PRN PRN Reason: Pain, severe (8-10) Stop: 04/21/18 06:01 Pantoprazole Sodium (Protonix Inj) 40 mg IVP Q12H [facility] Last Admin: 04/17/18 21:43 Dose: 40 mg Pneumococcal Polyvalent Vaccine (Pneumovax 23 Vaccine) 0.5 ml IM .ONCE ONE Stop: 04/21/18 10:01 Sennosides (Senokot Tab) 8.6 mg PO DAILY [facility] Last Admin: 04/17/18 09:32 Dose: 8.6 mg Tamsulosin HCl (Flomax) 0.4 mg PO DAILY [facility] Last Admin: 04/17/18 09:32 Dose: 0.4 mg - Labs Labs: 04/18/18 06:24 04/18/18 06:24 PT 13.6 SECONDS (9.7-12.2) H 04/14/18 19:04 INR 1.2 04/14/18 19:04 APTT 29 SECONDS (21-34) 04/14/18 19:04 - Constitutional Appears: No Acute Distress - Head Exam Head Exam: ATRAUMATIC, NORMOCEPHALIC - Eye Exam Eye Exam: EOMI, PERRL - Neck Exam Neck Exam: absent: Lymphadenopathy, Thyromegaly - Respiratory Exam Respiratory Exam: NORMAL BREATHING PATTERN. absent: Rales, Rhonchi, Wheezes - Cardiovascular Exam Cardiovascular Exam: REGULAR RHYTHM, +S1, +S2. absent: Gallop, Rubs, Murmur - GI/Abdominal Exam GI & Abdominal Exam: Soft, Normal Bowel Sounds. absent: Tenderness, Organomegaly Additional comments: Ventral hernia, unchanged - Rectal Exam Rectal Exam: Deferred - Extremities Exam Extremities Exam: absent: Calf Tenderness, Pedal Edema Assessment and Plan (1) Melena Assessment & Plan: Patient had recurrent melena. Hemoglobin dropped from 10.3 to 9.1 yesterday; today's value is 9.6. He is scheduled for echocardiogram and stress test today. Plan is for colonoscopy, perhaps Wednesday, if he is cleared by cardiology. Status: Acute
--- NOTE | 2018-04-18 10:21 | CP.PCM.PN ---
Subjective - Date & Time of Evaluation Date of Evaluation: 04/18/18 Time of Evaluation: 10:19 - Subjective Subjective: HOSPITALIST SERVICE Pt seen and examined at bedside. Pt complains of constant joint pains. Pt feels that his abdominal pain is improving, does not have any acute events overnight. He denies CP SOB FC NV. Pt understands plan for colonoscopy Wed w/ Dr Barth Objective - Vital Signs/Intake and Output Vital Signs (last 24 hours): Temp Pulse Resp BP Pulse Ox 98.5 F 98 H 15 126/61 99 04/17/18 20:00 04/18/18 09:04 04/17/18 22:00 04/17/18 18:15 04/17/18 00:28 Intake and Output: 04/18/18 04/18/18 06:59 18:59 Intake Total 200 420 Balance 200 420 - Medications Medications: Current Medications Baclofen (Lioresal) 10 mg PO BID [facility] Last Admin: 04/17/18 17:53 Dose: 10 mg Diltiazem HCl (Cardizem) 60 mg PO TID [facility] Last Admin: 04/17/18 17:53 Dose: 60 mg Docusate Sodium (Colace) 100 mg PO TID [facility] Last Admin: 04/17/18 17:57 Dose: Not Given Finasteride (Proscar) 5 mg PO DAILY [facility] Last Admin: 04/17/18 09:32 Dose: 5 mg Gabapentin (Neurontin) 800 mg PO BID [facility] Last Admin: 04/17/18 17:53 Dose: 800 mg Ceftriaxone Sodium 1 gm/ (Sodium Chloride) 100 mls @ 100 mls/hr IVPB DAILY [facility]; Protocol Influenza Virus Vaccine (Fluzone Quad [id number]) 60 mcg IM .ONCE ONE Stop: 04/21/18 10:01 Morphine Sulfate (Morphine Extended Release Tab) 30 mg PO Q12 [facility] Last Admin: 04/17/18 21:43 Dose: 30 mg Nicotine (Nicoderm Cq) 1 patch TD DAILY [facility] Last Admin: 04/17/18 09:33 Dose: Not Given Oxycodone/Acetaminophen (Percocet 5/325 Mg Tab) 1 tab PO Q8 PRN PRN Reason: Pain, severe (8-10) Stop: 04/21/18 06:01 Pantoprazole Sodium (Protonix Inj) 40 mg IVP Q12H [facility] Last Admin: 04/17/18 21:43 Dose: 40 mg Pneumococcal Polyvalent Vaccine (Pneumovax 23 Vaccine) 0.5 ml IM .ONCE ONE Stop: 04/21/18 10:01 Sennosides (Senokot Tab) 8.6 mg PO DAILY [facility] Last Admin: 04/17/18 09:32 Dose: 8.6 mg Tamsulosin HCl (Flomax) 0.4 mg PO DAILY [facility] Last Admin: 04/17/18 09:32 Dose: 0.4 mg - Labs Labs: 04/18/18 06:24 04/18/18 06:24 PT 13.6 SECONDS (9.7-12.2) H 04/14/18 19:04 INR 1.2 04/14/18 19:04 APTT 29 SECONDS (21-34) 04/14/18 19:04 - Constitutional Appears: Non-toxic, Cachectic - Head Exam Head Exam: ATRAUMATIC, NORMAL INSPECTION - Eye Exam Eye Exam: EOMI, Normal appearance. absent: Scleral icterus Pupil Exam: NORMAL ACCOMODATION - ENT Exam ENT Exam: Mucous Membranes Moist, Normal Exam - Respiratory Exam Respiratory Exam: Clear to Ausculation Bilateral. absent: Wheezes, Respiratory Distress - Cardiovascular Exam Cardiovascular Exam: RRR, +S1, +S2. absent: Tachycardia - GI/Abdominal Exam GI & Abdominal Exam: Soft, Normal Bowel Sounds. absent: Distended, Firm, Tenderness, Rebound - Rectal Exam Rectal Exam: Deferred - Extremities Exam Extremities Exam: Tenderness (bilateral knee and shoulder pain with passive ROM) - Back Exam Back Exam: muscle spasm (bilateral paraspinal hypertonicity in cervical and lumbar spine) - Neurological Exam Neurological Exam: Alert, Awake, CN II-XII Intact, Oriented x3 - Psychiatric Exam Psychiatric exam: Anxious - Skin Skin Exam: Normal Color, Warm Assessment and Plan - Assessment and Plan (Free Text) Assessment: GI Bleed with Esophagitits * Dr. Best on board help appreciated * Likely scope weds AM * f/u blood cultures * f/u procal and VBG * Dr. Rebollar on board help appreciated * CT abdomen/Pelvis: evaluation of the bowel is limited in the absence of oral contrast. Modertae dilatation of the fluid filled stomach and proximal and mid small bowel loops. The distal small bowel loops are decompressed. Findings are nonspecific and could be related to developing acute small obstruction or onspecfici infectious/inflammatory enteritis. Colonic diverticulosis without CT evidence of acute diverticulitis. * Abdominal Xray (04/14/18): no bowel obstruction or free air present * Abdominal xray (04/15/18): no active disease * EGD (04/15/18): la grade B esophagitis with no bleeding was found. No biopsies or other specimens were collected for this exam. No gross lesions were noted in the gastric fundus and in the gastric antrum. A medium amount of food mixed with dark liquid in the gastric body. 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 No gross lesions were noted in the second portion of the duodenum. * Patient received 2 units of PRBC during hospitalization. * Pending colonoscopy w/ Dr Barth: possible weds AM pending cardio clearance Current smoker * patient advised to stop smoking * Nicoderm patch daily Chronic Pain - s/p cervical fusion * Pain Managment w/ Dr Cornelius as outpatient -receiving the following: * Morphine ER 30mg PO BID * Percocet 5/325 1 tab PO Q8H * Gabapentin 800mg PO BID * Baclofen 10mg tid * Celebrex 200mg PO BID (held) * Cardizem 60mg PO TID * Cilastozol 50mg PO BID (held) Leukocytosis * Blood cultures (04/14/18): no growth * Urine culture (04/14/18): no growth * Rocephin 1 gram IV q daily (active since 04/14/18) * Elevated today f/u repeat BC, UC, Procal, VBG lac Anemia * s/p 2 units of PRBCs * Ferritin: 31 * s/p EGB 04/15/18 * repeat type and cross 1 unit PRBC if needed History of incisional hernia * Was scheduled for repair last year but was cancelled per surgery note. Preop clearance * Dr Rubio is consulted * echo 04/18: * nuclear stress test 04/18; Prophylactic Measure * Chemical contraindication secondary to suspected GI bleed * Protonix 40mg IV Q12H * Fall risk precaution * Patient advised strongly he is not medically stable for discharge. He was advised he would be leaving against medical advice. * Reconsult PT/OT Lázaro Ross PGY1 d/w Dr India Renteria
[2018-04-18] MEDS: Morphine 30 mg SR Tab PO SCH ×2 (10:55→21:58)
--- NOTE | 2018-04-18 12:50 | RAD ---
Date of service: 04/18/2018 HISTORY: Leukocytosis, pneumonia COMPARISON: Portable chest 04/14/2018. TECHNIQUE: Chest PA and lateral FINDINGS: LUNGS: Hyperinflation noted bilaterally. No acute infiltrate identified bilaterally. PLEURA: No significant pleural effusion identified. No pneumothorax apparent. CARDIOVASCULAR: No aortic atherosclerotic calcification present. Normal cardiac size. No pulmonary vascular congestion. OSSEOUS STRUCTURES: No significant abnormalities. VISUALIZED UPPER ABDOMEN: Normal. OTHER FINDINGS: None. IMPRESSION: Hyperinflation with no interval acute cardiopulmonary changes otherwise appreciated.
[2018-04-18 13:49] LABS: VENOUS BLOOD GAS BASE EXCESS -6.8 mmol/L (0.0-2.0); VENOUS BLOOD GAS PCO2 45 mmHg (40-60); VENOUS BLOOD GAS PO2 16 mm/Hg (30-55); VENOUS BLOOD PH 7.26 (7.32-7.43)
--- NOTE | 2018-04-18 14:50 | CP.PCM.PN ---
<Cheryl Rhodes - Last Filed: 04/18/18 16:58> Subjective - Date & Time of Evaluation Date of Evaluation: 04/18/18 Time of Evaluation: 14:43 - Subjective Subjective: Cardiology Follow Up Patient was seen and examined at bedside. Patient denied chest pain, shortness of breath, or palpitations. Objective - Vital Signs/Intake and Output Vital Signs (last 24 hours): Temp Pulse Resp BP Pulse Ox 98.4 F 99 H 20 90/58 L 97 04/18/18 14:00 04/18/18 14:00 04/18/18 14:00 04/18/18 14:00 04/18/18 14:00 Intake and Output: 04/18/18 04/18/18 06:59 18:59 Intake Total 200 1400 Output Total 1200 Balance 200 200 - Medications Medications: Current Medications Baclofen (Lioresal) 10 mg PO BID [facility] Last Admin: 04/18/18 10:51 Dose: 10 mg Diltiazem HCl (Cardizem) 60 mg PO TID [facility] Last Admin: 04/18/18 14:19 Dose: Not Given Docusate Sodium (Colace) 100 mg PO TID [facility] Last Admin: 04/18/18 14:19 Dose: Not Given Finasteride (Proscar) 5 mg PO DAILY [facility] Last Admin: 04/18/18 10:52 Dose: 5 mg Gabapentin (Neurontin) 800 mg PO BID [facility] Last Admin: 04/18/18 10:51 Dose: 800 mg Ceftriaxone Sodium 1 gm/ (Sodium Chloride) 100 mls @ 100 mls/hr IVPB DAILY [facility]; Protocol Last Admin: 04/18/18 14:00 Dose: 100 mls/hr Influenza Virus Vaccine (Fluzone Quad [id number]) 60 mcg IM .ONCE ONE Stop: 04/21/18 10:01 Morphine Sulfate (Morphine Extended Release Tab) 30 mg PO Q12 [facility] Last Admin: 04/18/18 10:55 Dose: 30 mg Nicotine (Nicoderm Cq) 1 patch TD DAILY [facility] Last Admin: 04/18/18 10:57 Dose: 1 patch Oxycodone/Acetaminophen (Percocet 5/325 Mg Tab) 1 tab PO Q6 [facility] Stop: 04/21/18 18:01 Pantoprazole Sodium (Protonix Inj) 40 mg IVP Q12H [facility] Last Admin: 04/18/18 11:00 Dose: 40 mg Pneumococcal Polyvalent Vaccine (Pneumovax 23 Vaccine) 0.5 ml IM .ONCE ONE Stop: 04/21/18 10:01 Sennosides (Senokot Tab) 8.6 mg PO DAILY [facility] Last Admin: 04/18/18 10:41 Dose: 8.6 mg Tamsulosin HCl (Flomax) 0.4 mg PO DAILY [facility] Last Admin: 04/18/18 10:52 Dose: 0.4 mg - Labs Labs: 04/18/18 06:24 04/18/18 06:24 PT 13.6 SECONDS (9.7-12.2) H 04/14/18 19:04 INR 1.2 04/14/18 19:04 APTT 29 SECONDS (21-34) 04/14/18 19:04 - Constitutional Appears: No Acute Distress - Head Exam Head Exam: NORMAL INSPECTION, NORMOCEPHALIC - Eye Exam Eye Exam: EOMI, PERRL Pupil Exam: NORMAL ACCOMODATION - ENT Exam ENT Exam: Mucous Membranes Moist - Respiratory Exam Respiratory Exam: Clear to Ausculation Bilateral, NORMAL BREATHING PATTERN - Cardiovascular Exam Cardiovascular Exam: +S1, +S2 - GI/Abdominal Exam GI & Abdominal Exam: Soft, Normal Bowel Sounds. absent: Distended, Tenderness - Extremities Exam Extremities Exam: Normal Inspection. absent: Pedal Edema, Tenderness - Neurological Exam Neurological Exam: Alert, Awake, Oriented x3 - Psychiatric Exam Psychiatric exam: Normal Affect, Normal Mood - Skin Skin Exam: Dry, Intact, Normal Color, Warm Assessment and Plan - Assessment and Plan (Free Text) Plan: GI Bleed Cardiac Clearance for Colonoscopy scheduled 04/19/18 Imaging: - ECHO: ordered, pending official read - Prior nuclear stress test 10/2016 - was normal - Repeat Nuclear Stress Test: normal, no ischemia noted Management: - Patient has low risk of any adverse cardiovascular event occuring during c olonoscopy Case discussed with Cheryl Márquez DO, PGY2 <Jt Rubio - Last Filed: 04/18/18 21:38> Objective - Vital Signs/Intake and Output Vital Signs (last 24 hours): Temp Pulse Resp BP Pulse Ox 97.9 F 70 20 95/59 L 97 04/18/18 18:03 04/18/18 18:03 04/18/18 18:03 04/18/18 18:03 04/18/18 18:03 Intake and Output: 04/18/18 04/19/18 18:59 06:59 Intake Total 1400 Output Total 1200 Balance 200 - Medications Medications: Current Medications Baclofen (Lioresal) 10 mg PO BID [facility] Last Admin: 04/18/18 17:21 Dose: 10 mg Diltiazem HCl (Cardizem) 60 mg PO TID [facility] Last Admin: 04/18/18 17:37 Dose: Not Given Docusate Sodium (Colace) 100 mg PO TID [facility] Last Admin: 04/18/18 17:13 Dose: 100 mg Finasteride (Proscar) 5 mg PO DAILY [facility] Last Admin: 04/18/18 10:52 Dose: 5 mg Gabapentin (Neurontin) 800 mg PO BID [facility] Last Admin: 04/18/18 17:21 Dose: 800 mg Ceftriaxone Sodium 1 gm/ (Sodium Chloride) 100 mls @ 100 mls/hr IVPB DAILY [facility]; Protocol Last Admin: 04/18/18 14:00 Dose: 100 mls/hr Influenza Virus Vaccine (Fluzone Quad [id number]) 60 mcg IM .ONCE ONE Stop: 04/21/18 10:01 Morphine Sulfate (Morphine Extended Release Tab) 30 mg PO Q12 [facility] Last Admin: 04/18/18 10:55 Dose: 30 mg Nicotine (Nicoderm Cq) 1 patch TD DAILY [facility] Last Admin: 04/18/18 10:57 Dose: 1 patch Oxycodone/Acetaminophen (Percocet 5/325 Mg Tab) 1 tab PO Q6 PRN PRN Reason: Pain, severe (8-10) Stop: 04/21/18 18:01 Last Admin: 04/18/18 17:21 Dose: 1 tab Pantoprazole Sodium (Protonix Inj) 40 mg IVP Q12H [facility] Last Admin: 04/18/18 11:00 Dose: 40 mg Pneumococcal Polyvalent Vaccine (Pneumovax 23 Vaccine) 0.5 ml IM .ONCE ONE Stop: 04/21/18 10:01 Sennosides (Senokot Tab) 8.6 mg PO DAILY [facility] Last Admin: 04/18/18 10:41 Dose: 8.6 mg Tamsulosin HCl (Flomax) 0.4 mg PO DAILY [facility] Last Admin: 04/18/18 10:52 Dose: 0.4 mg - Labs Labs: 04/18/18 06:24 04/18/18 06:24 PT 13.6 SECONDS (9.7-12.2) H 04/14/18 19:04 INR 1.2 04/14/18 19:04 APTT 29 SECONDS (21-34) 04/14/18 19:04 Assessment and Plan - Assessment and Plan (Free Text) Plan: Patient seen and evaluated personally by me Plan of care d/w the director of medical staff services and as documented
--- NOTE | 2018-04-18 18:02 | CARD ---
APPROVED REPORT Date of service: 04/18/2018 EXAM: Two-dimensional and M-mode echocardiogram with Doppler and color Doppler. INDICATION Cardiac Disease: CAD Congestive Heart Failure RISK FACTORS Hyperlipidemia 2D DIMENSIONS IVSd1.2 (0.7-1.1cm)LVDd3.1 (3.9-5.9cm) PWd1.0 (0.7-1.1cm)LA Bebkjt23 (18-58mL) LVDs1.9 (2.5-4.0cm)FS (%) 39.0 % LVEF (%)70.9 (>50%)LVEF (Desir's)64.98 % M-Mode DIMENSIONS Left Atrium (MM)3.48 (2.5-4.0cm)IVSd0.88 (0.7-1.1cm) Aortic Root4.04 (2.2-3.7cm)LVDd4.36 (4.0-5.6cm) Aortic Cusp Exc.2.78 (1.5-2.0cm)PWd0.76 (0.7-1.1cm) FS (%) 48 %LVDs2.28 (2.0-3.8cm) LVEF (%)79 (>50%) Aortic Valve AI P 1/2 [id number] Mitral Valve MV E Nrvptvab90.7cm/sMV A Zewluqrr464.5cm/sE/A ratio0.5 TDI Lateral E' Peak V11.23cm/sMedial E' Peak V6.39cm/sE/Lateral E'5.7 E/Medial E'10.0 Tricuspid Valve TR Peak Stmyydxa259bx/sTR Peak Gr.[id number] LEFT VENTRICLE The left ventricle is normal size. There is mild concentric left ventricular hypertrophy. The left ventricular function is normal. The left ventricular ejection fraction is within the normal range. About 56%. No regional wall motion abnormalities noted. The left ventricular diastolic function was nor prolperly assessed. No left ventricle thrombus noted on this study. There is no ventricular septal defect visualized. There is no left ventricular aneurysm. There is no mass noted in the left ventricle. RIGHT VENTRICLE The right ventricle is normal size. There is normal right ventricular wall thickness. The right ventricular systolic function is normal. ATRIA The left atrium size is normal. The right atrium size is normal. The interatrial septum is intact with no evidence for an atrial septal defect. AORTIC VALVE The aortic valve is normal in structure and function. Mild aortic regurgitation is present. There is no aortic valvular stenosis. There is no aortic valvular vegetation. MITRAL VALVE The mitral valve is normal in structure and function. There is no evidence of mitral valve prolapse. There is no mitral valve stenosis. There is no mitral valve regurgitation noted. TRICUSPID VALVE The tricuspid valve is normal in structure and function. There is no tricuspid valve regurgitation noted. There is no tricuspid valve prolapse or vegetation. There is no tricuspid valve stenosis. PULMONIC VALVE The pulmonary valve is normal in structure and function. There is no pulmonic valvular regurgitation. There is no pulmonic valvular stenosis. GREAT VESSELS The aortic root is normal in size. The ascending aorta is mildly dilated at 4.1 cm, the aortic root is 3.9 cm. The pulmonary artery is normal. The IVC is normal in size and collapses >50% with inspiration. PERICARDIAL EFFUSION The pericardium appears normal. There is no pleural effusion. <Conclusion> Normal left ventricualr systilic fuinctionand wall motion. Incomplete diastolic assessment Mild aortic regurgitation is present. The ascending aorta is mildly dilated at 4.1 cm, the aortic root is 3.9 cm.
[2018-04-19 01:16] LABS: SQUAMOUS EPITHIAL 1 /hpf (0-5); URINE BILIRUBIN NEGATIVE (NEGATIVE); URINE BLOOD NEGATIVE (NEGATIVE); URINE CLARITY Clear (Clear); URINE COLOR Yellow (YELLOW); URINE GLUCOSE (UA) NORMAL (Normal); URINE LEUKOCYTE ESTERASE NEG Leu/uL (Negative); URINE PROTEIN NEGATIVE (NEGATIVE); URINE UROBILINOGEN NORMAL mg/dL (0.2-1.0)
--- NOTE | 2018-04-19 02:29 | PCM.PSYCH ---
Initial Psychiatric Evaluation - Initial Psychiatric Evaluation Type of Admission: Voluntary Legal Status: Capacity History of Present Illness and Precipitating Events: Patient (ICU) Oralia is a 77 year old male who is currently , lives with his , and is retired. He presents to the hospital on for bleeding in his stomach. The patient is oriented to person, place, and time. He has never seen a psychiatrist before. He denies feeling depressed, wanting to hurt himself or others, any visual or auditory hallucinations, or racing thoughts. He used to smoke 5 cigarettes a day for 5 years. He used to abuse alcohol but no longer does it. He currently has chronic arthritis, bursitis and tendonitis, for which he takes a generic opioid for. He uses the prescribed opioid every 4-5 hours, and has been using it for 10 years. His primary care physician prescribed him the opioid. He denies illict drug use. Past Psych History: denies Past Family Psych History: denies Past Medical History: Chronic arthritis, bursitis, tendonitis Assessment: Chronic Arthritis Plan: Discharge. Current Medications: Active Medications Generic Name Dose Route Start Last Admin Trade Name Freq PRN Reason Stop Dose Admin Baclofen 10 mg 04/16/18 10:15 04/18/18 17:21 Lioresal PO 10 mg BID [facility] Administration Diltiazem HCl 60 mg 04/15/18 18:00 04/18/18 17:37 Cardizem PO Not Given TID [facility] Docusate Sodium 100 mg 04/15/18 10:00 04/18/18 17:13 Colace PO 100 mg TID [facility] Administration Finasteride 5 mg 04/16/18 10:00 04/18/18 10:52 Proscar PO 5 mg DAILY [facility] Administration Gabapentin 800 mg 04/16/18 10:00 04/18/18 17:21 Neurontin PO 800 mg BID [facility] Administration Ceftriaxone Sodium 1 gm/ 100 mls @ 100 mls/hr 04/18/18 10:00 04/18/18 14:00 Sodium Chloride IVPB 100 mls/hr DAILY [facility] Administration Protocol Influenza Virus Vaccine 60 mcg 04/21/18 10:00 Fluzone Quad [id number] IM 04/21/18 10:01 .ONCE ONE Morphine Sulfate 30 mg 04/15/18 22:00 04/18/18 21:58 Morphine Extended Release Tab PO 30 mg Q12 [facility] Administration Nicotine 1 patch 04/14/18 17:45 04/18/18 10:57 Nicoderm Cq TD 1 patch DAILY [facility] Administration Oxycodone/Acetaminophen 1 tab 04/18/18 18:00 04/18/18 23:08 Percocet 5/325 Mg Tab PO 04/21/18 18:01 1 tab Q6 PRN Administration Pain, severe (8-10) Pantoprazole Sodium 40 mg 04/15/18 09:00 04/18/18 21:59 Protonix Inj IVP 40 mg Q12H [facility] Administration Pneumococcal Polyvalent Vaccine 0.5 ml 04/21/18 10:00 Pneumovax 23 Vaccine IM 04/21/18 10:01 .ONCE ONE Sennosides 8.6 mg 04/15/18 10:00 04/18/18 10:41 Senokot Tab PO 8.6 mg DAILY [facility] Administration Tamsulosin HCl 0.4 mg 04/16/18 10:00 04/18/18 10:52 Flomax PO 0.4 mg DAILY [facility] Administration Past Psychiatric History - Past Psychiatric History Previous Treatment History: None Pertinent Medical Hx (Current Medical&Sleep Prob, Allergies): Allergies Allergy/AdvReac Type Severity Reaction Status Date / Time No Known Allergies Allergy Verified 04/14/18 10:06 Atorvastatin [Lipitor] 10 mg PO DAILY 08/26/16 Cyclobenzaprine [Cyclobenzaprine HCl] 10 mg PO DAILY 08/26/16 Dutasteride/Tamsulosin HCl [Dutasteride-Tamsulosin 0.5-0.4] 1 each PO DAILY 08/26/16 Gabapentin [Neurontin] 800 mg PO DAILY 08/26/16 Morphine [MS Contin] 30 mg PO DAILY 08/26/16 Oxycodone HCl/Acetaminophen [Percocet 10-325 mg Tablet] 1 each PO DAILY 08/26/16 Pantoprazole [Protonix] 40 mg PO DAILY 08/26/16 diltiaZEM [Cardizem] 60 mg PO TID 08/26/16 Baclofen 04/14/18 Cilostazol 04/14/18 Review of Systems - Review of Systems All systems: reviewed and no additional remarkable complaints except - Psychiatric Psychiatric: Anxiety. absent: Suicidal Ideation Mental Status Examination - Personal Presentation Personal Presentation: Looks stated age - Affect Affect: Constricted - Motor Activity Motor Activity: Calm - Reliability in Providing Information Reliability in Providing Information: Fair - Speech Speech: Organized - Mood Mood: Anxious - Formal Thought Process Formal Thought Process: No Impairment - Obsessions/Compulsions Obsessions: No Compulsions: No - Cognitive Functions Orientation: Person, Place, Situation, Time Sensorium: Alert Attention/Concentration: Attentive Abstract Thinking: [place] Estimate of Intelligence: Below average Judgement: Imparied, as evidence by: Poor judgement, Intact, as evidence by: Insight regarding need for hospitalization - Risk Risk: Diminished functioning - Strength & Assets Inventory Strength & Assets Inventory: Family support DSM 5 DX - DSM 5 DSM 5 Diagnosis: Opioid use disorder moderate - Recommended/Plan of Treatment Treatment Recommendations and Plan of Treatment: Patient psychiatrically stable and cleared for discharge
[2018-04-19] MEDS: Oxycodone/Acetaminophen 5/325 mg Tab PO PRN ×3 (05:16→19:06)
--- NOTE | 2018-04-19 07:45 | CP.PCM.PN ---
Subjective - Date & Time of Evaluation Date of Evaluation: 04/19/18 Time of Evaluation: 07:42 - Subjective Subjective: Patient denies having nausea, vomiting, and abdominal pain. He had three bowel movements this morning which were brown. Objective - Vital Signs/Intake and Output Vital Signs (last 24 hours): Temp Pulse Resp BP Pulse Ox 98.5 F 96 H 20 95/51 L 96 04/18/18 23:00 04/19/18 00:42 04/18/18 23:00 04/18/18 23:00 04/18/18 23:00 Intake and Output: 04/19/18 04/19/18 06:59 18:59 Intake Total 100 Balance 100 - Medications Medications: Current Medications Baclofen (Lioresal) 10 mg PO BID [facility] Last Admin: 04/18/18 17:21 Dose: 10 mg Diltiazem HCl (Cardizem) 60 mg PO TID [facility] Last Admin: 04/18/18 17:37 Dose: Not Given Docusate Sodium (Colace) 100 mg PO TID [facility] Last Admin: 04/18/18 17:13 Dose: 100 mg Finasteride (Proscar) 5 mg PO DAILY [facility] Last Admin: 04/18/18 10:52 Dose: 5 mg Gabapentin (Neurontin) 800 mg PO BID [facility] Last Admin: 04/18/18 17:21 Dose: 800 mg Ceftriaxone Sodium 1 gm/ (Sodium Chloride) 100 mls @ 100 mls/hr IVPB DAILY [facility]; Protocol Last Admin: 04/18/18 14:00 Dose: 100 mls/hr Influenza Virus Vaccine (Fluzone Quad [id number]) 60 mcg IM .ONCE ONE Stop: 04/21/18 10:01 Morphine Sulfate (Morphine Extended Release Tab) 30 mg PO Q12 [facility] Last Admin: 04/18/18 21:58 Dose: 30 mg Nicotine (Nicoderm Cq) 1 patch TD DAILY [facility] Last Admin: 04/18/18 10:57 Dose: 1 patch Oxycodone/Acetaminophen (Percocet 5/325 Mg Tab) 1 tab PO Q6 PRN PRN Reason: Pain, severe (8-10) Stop: 04/21/18 18:01 Last Admin: 04/19/18 05:16 Dose: 1 tab Pantoprazole Sodium (Protonix Inj) 40 mg IVP Q12H [facility] Last Admin: 04/18/18 21:59 Dose: 40 mg Pneumococcal Polyvalent Vaccine (Pneumovax 23 Vaccine) 0.5 ml IM .ONCE ONE Stop: 04/21/18 10:01 Sennosides (Senokot Tab) 8.6 mg PO DAILY [facility] Last Admin: 04/18/18 10:41 Dose: 8.6 mg Tamsulosin HCl (Flomax) 0.4 mg PO DAILY [facility] Last Admin: 04/18/18 10:52 Dose: 0.4 mg - Labs Labs: 04/18/18 06:24 04/18/18 06:24 PT 13.6 SECONDS (9.7-12.2) H 04/14/18 19:04 INR 1.2 04/14/18 19:04 APTT 29 SECONDS (21-34) 04/14/18 19:04 - Constitutional Appears: No Acute Distress - Head Exam Head Exam: ATRAUMATIC, NORMOCEPHALIC - Eye Exam Eye Exam: EOMI, PERRL - Neck Exam Neck Exam: absent: Lymphadenopathy, Thyromegaly - Respiratory Exam Respiratory Exam: NORMAL BREATHING PATTERN. absent: Rales, Rhonchi, Wheezes - Cardiovascular Exam Cardiovascular Exam: REGULAR RHYTHM, +S1, +S2. absent: Gallop, Rubs, Murmur - GI/Abdominal Exam GI & Abdominal Exam: Soft, Normal Bowel Sounds. 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 The CBC from this morning is pending. Colonoscopy has been scheduled for tomorrow morning. Report from stress test is pending. Status: Acute
[2018-04-19 07:54] LABS: BASO % 0.1 % (0.0-2.0); EOS # 0.8 K/uL (0.0-0.7); EOS % 3.5 % (0.0-4.0); HEMOGLOBIN 8.5 g/dL (12.0-18.0); LYMPH # 1.7 K/uL (1.0-4.3); LYMPH % 7.3 % (20.0-40.0); MEAN CELL VOLUME 93.2 fL (80.0-94.0); MEAN CORPUSCULAR HEMOGLOBIN 31.5 pg (27.0-31.0); MEAN CORPUSCULAR HGB CONC 33.8 g/dL (33.0-37.0); MEAN PLATELET VOLUME 7.7 fL (7.2-11.7); MONO # 2.1 K/uL (0.0-0.8); MONO % 9.1 % (0.0-10.0); NEUT # 18.2 K/uL (1.8-7.0); PLATELET COUNT 251 K/uL (130-400); RED CELL DISTRIBUTION WIDTH 16.1 % (11.5-14.5); WHITE BLOOD COUNT 22.7 K/uL (4.8-10.8)
[2018-04-19 08:25] LABS: ALBUMIN 3.1 g/dL (3.5-5.0); ALT/SGPT 31 U/L (21-72); AST/SGOT 28 U/L (17-59); BLOOD UREA NITROGEN 16 mg/dL (9-20); CALCIUM 8.7 mg/dl (8.6-10.4); GFR NON-AFRICAN AMERICAN 59
--- NOTE | 2018-04-19 09:16 | CP.PCM.PN ---
Subjective - Date & Time of Evaluation Date of Evaluation: 04/19/18 Time of Evaluation: 09:15 - Subjective Subjective: HOSPITALIST SERVICE Pt seen and examined at bedside, pt denies any acute events overnight, pt denies bloody or painful stools, denies fatigue change in vision, LOC change in balance, denies cp sob fc nv. 12 point ROS reviewed and unremarkable. Objective - Vital Signs/Intake and Output Vital Signs (last 24 hours): Temp Pulse Resp BP Pulse Ox 98.5 F 75 18 98/58 L 97 04/19/18 07:59 04/19/18 07:59 04/19/18 07:59 04/19/18 07:59 04/19/18 07:59 Intake and Output: 04/19/18 04/19/18 06:59 18:59 Intake Total 100 Balance 100 - Medications Medications: Current Medications Baclofen (Lioresal) 10 mg PO BID [facility] Last Admin: 04/18/18 17:21 Dose: 10 mg Bisacodyl (Dulcolax) 10 mg PO ONCE ONE Stop: 04/19/18 17:01 Diltiazem HCl (Cardizem) 60 mg PO TID [facility] Last Admin: 04/18/18 17:37 Dose: Not Given Docusate Sodium (Colace) 100 mg PO TID [facility] Last Admin: 04/18/18 17:13 Dose: 100 mg Finasteride (Proscar) 5 mg PO DAILY [facility] Last Admin: 04/18/18 10:52 Dose: 5 mg Gabapentin (Neurontin) 800 mg PO BID [facility] Last Admin: 04/18/18 17:21 Dose: 800 mg Ceftriaxone Sodium 1 gm/ (Sodium Chloride) 100 mls @ 100 mls/hr IVPB DAILY [facility]; Protocol Last Admin: 04/18/18 14:00 Dose: 100 mls/hr Influenza Virus Vaccine (Fluzone Quad [id number]) 60 mcg IM .ONCE ONE Stop: 04/21/18 10:01 Morphine Sulfate (Morphine Extended Release Tab) 30 mg PO Q12 [facility] Last Admin: 04/18/18 21:58 Dose: 30 mg Nicotine (Nicoderm Cq) 1 patch TD DAILY [facility] Last Admin: 04/18/18 10:57 Dose: 1 patch Oxycodone/Acetaminophen (Percocet 5/325 Mg Tab) 1 tab PO Q6 PRN PRN Reason: Pain, severe (8-10) Stop: 04/21/18 18:01 Last Admin: 04/19/18 05:16 Dose: 1 tab Pantoprazole Sodium (Protonix Inj) 40 mg IVP Q12H [facility] Last Admin: 04/18/18 21:59 Dose: 40 mg Pneumococcal Polyvalent Vaccine (Pneumovax 23 Vaccine) 0.5 ml IM .ONCE ONE Stop: 04/21/18 10:01 Polyethylene Glycol/Electrolytes (Golytely) 4,000 ml PO ONCE ONE Stop: 04/19/18 19:01 Sennosides (Senokot Tab) 8.6 mg PO DAILY [facility] Last Admin: 04/18/18 10:41 Dose: 8.6 mg Tamsulosin HCl (Flomax) 0.4 mg PO DAILY [facility] Last Admin: 04/18/18 10:52 Dose: 0.4 mg - Labs Labs: 04/19/18 07:42 04/19/18 07:42 PT 13.6 SECONDS (9.7-12.2) H 04/14/18 19:04 INR 1.2 04/14/18 19:04 APTT 29 SECONDS (21-34) 04/14/18 19:04 - Additional Findings Additional findings: - Constitutional Appears: Non-toxic, Cachectic - Head Exam Head Exam: ATRAUMATIC, NORMAL INSPECTION - Eye Exam Eye Exam: EOMI, Normal appearance. absent: Scleral icterus Pupil Exam: NORMAL ACCOMODATION - ENT Exam ENT Exam: Mucous Membranes Moist, Normal Exam - Respiratory Exam Respiratory Exam: Clear to Ausculation Bilateral. absent: Wheezes, Respiratory Distress - Cardiovascular Exam Cardiovascular Exam: RRR, +S1, +S2. absent: Tachycardia - GI/Abdominal Exam GI & Abdominal Exam: Soft, Normal Bowel Sounds, non-tender ventral hernia noted, chronic in previous documentation. absent: Distended, Firm, Tenderness, Rebound - Rectal Exam Rectal Exam: Deferred - Extremities Exam Extremities Exam: Tenderness (bilateral knee and shoulder pain with passive ROM) - Back Exam Back Exam: muscle spasm (bilateral paraspinal hypertonicity in cervical and easton mbar spine) - Neurological Exam Neurological Exam: Alert, Awake, CN II-XII Intact, Oriented x3 - Psychiatric Exam Psychiatric exam: Anxious - Skin Skin Exam: Normal Color, Warm Assessment and Plan - Assessment and Plan (Free Text) Assessment: 77m pending with possible GI bleed for colonoscopy w/ Dr Barth weds AM PLAN GI Bleed with Esophagitits * Dr. Best on board help appreciated * Likely scope weds AM * 04/18 NEG 24hr blood cultures * .83 procal and 1.8 Lactate * Dr. Rebollar on board help appreciated * CT abdomen/Pelvis: evaluation of the bowel is limited in the absence of oral contrast. Modertae dilatation of the fluid filled stomach and proximal and mid small bowel loops. The distal small bowel loops are decompressed. Findings are nonspecific and could be related to developing acute small obstruction or onspecfici infectious/inflammatory enteritis. Colonic diverticulosis without CT evidence of acute diverticulitis. * Abdominal Xray (04/14/18): no bowel obstruction or free air present * Abdominal xray (04/15/18): no active disease * EGD (04/15/18): la grade B esophagitis with no bleeding was found. No biopsies or other specimens were collected for this exam. No gross lesions were noted in the gastric fundus and in the gastric antrum. A medium amount of food mixed with dark liquid in the gastric body. 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 No gross lesions were noted in the second portion of the duodenum. * Patient received 2 units of PRBC during hospitalization. * Pending colonoscopy w/ Dr Barth: possible weds AM Current smoker * patient advised to stop smoking * Nicoderm patch daily Chronic Pain - s/p cervical fusion * Pain Managment w/ Dr Cornelius as outpatient -receiving the following: * Morphine ER 30mg PO BID * Percocet 5/325 1 tab PO Q8H * Gabapentin 800mg PO BID * Baclofen 10mg tid * Celebrex 200mg PO BID (held) * Cardizem 60mg PO TID * Cilastozol 50mg PO BID (held) Leukocytosis * Blood cultures (04/14/18): no growth * Urine culture (04/14/18): no growth * Rocephin 1 gram IV q daily (active since 04/14/18) * Slightly downtrending, * Procal 0.8 * UA neg Anemia Acute due to likely GI Bleed * s/p 2 units of PRBCs * Ferritin: 31 * s/p EGB 04/15/18 * repeat type and cross 1 unit PRBC if needed History of incisional hernia * Was scheduled for repair last year but was cancelled per surgery note. Preop clearance * Dr Rubio is consulted * echo 04/18: EF 70% * nuclear stress test 04/18; no ischemia noted * Pt is low risk Prophylactic Measure * Chemical contraindication secondary to suspected GI bleed * Protonix 40mg IV Q12H * Fall risk precaution * Patient advised strongly he is not medically stable for discharge. He was advised he would be leaving against medical advice. * Reconsult PT/OT Lázaro Ross PGY1 d/w Dr India Renteria
[2018-04-19 09:29] LABS: BANDS 3 % (0-2); EOSINOPHIL 5 % (0-4); LYMPHOCYTE 12 % (20-40); MONOCYTE 9 % (0-10); NEUTROPHIL 71 % (50-75); PLATELET ESTIMATE NORMAL (NORMAL); TOTAL CELLS COUNTED 100
[2018-04-19 09:30] LABS: ANISOCYTOSIS SLIGHT; HYPOCHROMIC SLIGHT; POLYCHROMIC SLIGHT
[2018-04-19] MEDS: Morphine 15 mg SR Tab PO SCH ×2 (10:11→22:40)
[2018-04-19] MEDS ORDERED: Bisacodyl 5mg EC Tab PO ONE ×2 (17:00→19:00)
[2018-04-19] MEDS ORDERED: Peg-Electrolyte Oral Soln 4L (Golytely) PO ONE (19:00)
--- NOTE | 2018-04-19 22:23 | CP.PCM.PN ---
Subjective - Date & Time of Evaluation Date of Evaluation: 04/19/18 Time of Evaluation: 14:00 - Subjective Subjective: Patient was seen and examined at bedside. Patient denies chest pain, shortness of breath, or palpitations. Physical Examination - Constitutional Appears: No Acute Distress - Head Exam Head Exam: NORMAL INSPECTION, NORMOCEPHALIC - Eye Exam Eye Exam: EOMI, PERRL Pupil Exam: NORMAL ACCOMODATION - ENT Exam ENT Exam: Mucous Membranes Moist - Respiratory Exam Respiratory Exam: Clear to Ausculation Bilateral, NORMAL BREATHING PATTERN - Cardiovascular Exam Cardiovascular Exam: +S1, +S2 - GI/Abdominal Exam GI & Abdominal Exam: Soft, Normal Bowel Sounds. absent: Distended, Tenderness - Extremities Exam Extremities Exam: Normal Inspection. absent: Pedal Edema, Tenderness - Neurological Exam Neurological Exam: Alert, Awake, Oriented x3 - Psychiatric Exam Psychiatric exam: Normal Affect, Normal Mood - Skin Skin Exam: Dry, Intact, Normal Color, Warm Assessment and Plan - Assessment and Plan (Free Text) Plan: GI Bleed Imaging: - ECHO: ordered, pending official read - Prior nuclear stress test 10/2016 - was normal - Repeat Nuclear Stress Test: normal, no ischemia noted Management: - Patient has low risk of any adverse cardiovascular event occurring during colonoscopy Objective - Vital Signs/Intake and Output Vital Signs (last 24 hours): Temp Pulse Resp BP Pulse Ox 99.2 F 70 20 108/61 98 04/19/18 15:47 04/19/18 15:47 04/19/18 15:47 04/19/18 15:47 04/19/18 15:47 - Medications Medications: Current Medications Baclofen (Lioresal) 10 mg PO BID [facility] Last Admin: 04/19/18 18:58 Dose: 10 mg Diltiazem HCl (Cardizem) 60 mg PO TID [facility] Last Admin: 04/19/18 18:46 Dose: 60 mg Docusate Sodium (Colace) 100 mg PO TID [facility] Last Admin: 04/19/18 18:46 Dose: 100 mg Finasteride (Proscar) 5 mg PO DAILY [facility] Last Admin: 04/19/18 10:08 Dose: 5 mg Gabapentin (Neurontin) 800 mg PO BID [facility] Last Admin: 04/19/18 18:58 Dose: 800 mg Ceftriaxone Sodium 1 gm/ (Sodium Chloride) 100 mls @ 100 mls/hr IVPB DAILY [facility]; Protocol Last Admin: 04/19/18 10:11 Dose: 100 mls/hr Influenza Virus Vaccine (Fluzone Quad [id number]) 60 mcg IM .ONCE ONE Stop: 04/21/18 10:01 Morphine Sulfate (Morphine Extended Release Tab) 30 mg PO Q12 [facility] Last Admin: 04/19/18 10:11 Dose: 30 mg Nicotine (Nicoderm Cq) 1 patch TD DAILY [facility] Last Admin: 04/19/18 10:17 Dose: Not Given Oxycodone/Acetaminophen (Percocet 5/325 Mg Tab) 1 tab PO Q6 PRN PRN Reason: Pain, severe (8-10) Stop: 04/21/18 18:01 Last Admin: 04/19/18 19:06 Dose: 1 tab Pantoprazole Sodium (Protonix Inj) 40 mg IVP Q12H [facility] Last Admin: 04/19/18 09:58 Dose: 40 mg Pneumococcal Polyvalent Vaccine (Pneumovax 23 Vaccine) 0.5 ml IM .ONCE ONE Stop: 04/21/18 10:01 Sennosides (Senokot Tab) 8.6 mg PO DAILY [facility] Last Admin: 04/19/18 10:07 Dose: 8.6 mg Tamsulosin HCl (Flomax) 0.4 mg PO DAILY [facility] Last Admin: 04/19/18 10:07 Dose: 0.4 mg - Labs Labs: 04/19/18 07:42 04/19/18 07:42 PT 13.6 SECONDS (9.7-12.2) H 04/14/18 19:04 INR 1.2 04/14/18 19:04 APTT 29 SECONDS (21-34) 04/14/18 19:04
[2018-04-20] MEDS: Oxycodone/Acetaminophen 5/325 mg Tab PO PRN ×4 (01:04→18:46)
[2018-04-20 06:33] LABS: BASO # 0.1 K/uL (0.0-0.2); BASO % 0.2 % (0.0-2.0); EOS # 0.7 K/uL (0.0-0.7); HEMOGLOBIN 8.9 g/dL (12.0-18.0); LYMPH # 1.8 K/uL (1.0-4.3); LYMPH % 7.7 % (20.0-40.0); MEAN CELL VOLUME 92.3 fL (80.0-94.0); MEAN CORPUSCULAR HEMOGLOBIN 31.4 pg (27.0-31.0); MEAN PLATELET VOLUME 7.7 fL (7.2-11.7); MONO # 2.6 K/uL (0.0-0.8); MONO % 11.5 % (0.0-10.0); NEUT # 17.8 K/uL (1.8-7.0); NEUT % 77.6 % (50.0-75.0); PLATELET COUNT 315 K/uL (130-400); RBC 2.83 Mil/uL (4.40-5.90); RED CELL DISTRIBUTION WIDTH 15.8 % (11.5-14.5)
[2018-04-20 07:12] LABS: ALB/GLOB RATIO 1.1 (1.0-2.1); ALBUMIN 3.4 g/dL (3.5-5.0); ALT/SGPT 24 U/L (21-72); AST/SGOT 16 U/L (17-59); BLOOD UREA NITROGEN 11 mg/dL (9-20); CALCIUM 8.9 mg/dl (8.6-10.4); GFR NON-AFRICAN AMERICAN > 60
[2018-04-20] MEDS ORDERED: Lactated Ringer's 1,000 ML IV ONE (07:55)
[2018-04-20 08:14] LABS: ANISOCYTOSIS SLIGHT; BANDS 1 % (0-2); BASOPHIL 1 % (0-2); EOSINOPHIL 2 % (0-4); HYPOCHROMIC SLIGHT; LYMPHOCYTE 8 % (20-40); MONOCYTE 10 % (0-10); NEUTROPHIL 78 % (50-75); OVALOCYTES SLIGHT; PLATELET ESTIMATE NORMAL (NORMAL); POIKILOCYTOSIS SLIGHT; TOTAL CELLS COUNTED 100
[2018-04-20 08:15] LABS: BURR CELLS SLIGHT
[2018-04-20 08:16] LABS: ACANTHOCYTES SLIGHT
--- NOTE | 2018-04-20 08:32 | PCM.SURG1 ---
Surgeon's Initial Post Op Note - Surgeon's Notes Surgeon: Ehsan Best Bruise Trimmer: none Type of Anesthesia: MAC Pre-Operative Diagnosis: GI bleeding Operative Findings: diffuse pseudomembranes; diverticula in sigmoid colon, descending colon, transverse colon; 3 mm polyp in proximal sigmoid at 36 cm Post-Operative Diagnosis: Pseudomembranous colitis; diverticulosis; colon polyp Operation Performed: Colonoscopy and biopsy Specimen/Specimens Removed: Biopsy ascending colon, transverse colon, polyp (at 36 cm) Estimated Blood Loss: EBL {In ML}: 1 Date of Surgery/Procedure: 04/20/18 Time of Surgery/Procedure: 08:32
--- NOTE | 2018-04-20 09:35 | CP.PCM.PN ---
<Cheryl Rhodes - Last Filed: 04/20/18 09:33> Subjective - Date & Time of Evaluation Date of Evaluation: 04/20/18 Time of Evaluation: 09:33 - Subjective Subjective: Cardiology Follow Up Patient was seen and examined at bedside. Patient denied chest pain, shortness of breath, or palpitations. Objective - Vital Signs/Intake and Output Vital Signs (last 24 hours): Temp Pulse Resp BP Pulse Ox 97.3 F L 94 H 18 150/65 100 04/20/18 08:35 04/20/18 09:05 04/20/18 09:05 04/20/18 09:05 04/20/18 09:05 - Medications Medications: Current Medications Baclofen (Lioresal) 10 mg PO BID [facility] Last Admin: 04/19/18 18:58 Dose: 10 mg Diltiazem HCl (Cardizem) 60 mg PO TID [facility] Last Admin: 04/19/18 18:46 Dose: 60 mg Docusate Sodium (Colace) 100 mg PO TID [facility] Last Admin: 04/19/18 18:46 Dose: 100 mg Finasteride (Proscar) 5 mg PO DAILY [facility] Last Admin: 04/19/18 10:08 Dose: 5 mg Gabapentin (Neurontin) 800 mg PO BID [facility] Last Admin: 04/19/18 18:58 Dose: 800 mg Influenza Virus Vaccine (Fluzone Quad 4420-2019) 60 mcg IM .ONCE ONE Stop: 04/21/18 10:01 Morphine Sulfate (Morphine Extended Release Tab) 30 mg PO Q12 [facility] Last Admin: 04/19/18 22:40 Dose: 30 mg Nicotine (Nicoderm Cq) 1 patch TD DAILY [facility] Last Admin: 04/19/18 10:17 Dose: Not Given Oxycodone/Acetaminophen (Percocet 5/325 Mg Tab) 1 tab PO Q6 PRN PRN Reason: Pain, severe (8-10) Stop: 04/21/18 18:01 Last Admin: 04/20/18 06:39 Dose: 1 tab Pantoprazole Sodium (Protonix Inj) 40 mg IVP Q12H [facility] Last Admin: 04/19/18 22:41 Dose: 40 mg Pneumococcal Polyvalent Vaccine (Pneumovax 23 Vaccine) 0.5 ml IM .ONCE ONE Stop: 04/21/18 10:01 Sennosides (Senokot Tab) 8.6 mg PO DAILY [facility] Last Admin: 04/19/18 10:07 Dose: 8.6 mg Tamsulosin HCl (Flomax) 0.4 mg PO DAILY [facility] Last Admin: 04/19/18 10:07 Dose: 0.4 mg Vancomycin HCl (Vancocin (Oral Or Rectal Use)) 125 mg PO QID [facility]; Protocol - Labs Labs: 04/20/18 06:25 04/20/18 06:25 PT 13.6 SECONDS (9.7-12.2) H 04/14/18 19:04 INR 1.2 04/14/18 19:04 APTT 29 SECONDS (21-34) 04/14/18 19:04 - Additional Findings Additional findings: - Constitutional Appears: No Acute Distress - Head Exam Head Exam: NORMAL INSPECTION, NORMOCEPHALIC - Eye Exam Eye Exam: EOMI, PERRL Pupil Exam: NORMAL ACCOMODATION - ENT Exam ENT Exam: Mucous Membranes Moist - Respiratory Exam Respiratory Exam: Clear to Ausculation Bilateral, NORMAL BREATHING PATTERN - Cardiovascular Exam Cardiovascular Exam: +S1, +S2 - GI/Abdominal Exam GI & Abdominal Exam: Soft, Normal Bowel Sounds. absent: Distended, Tenderness - Extremities Exam Extremities Exam: Normal Inspection. absent: Pedal Edema, Tenderness - Neurological Exam Neurological Exam: Alert, Awake, Oriented x3 - Psychiatric Exam Psychiatric exam: Normal Affect, Normal Mood - Skin Skin Exam: Dry, Intact, Normal Color, Warm Assessment and Plan - Assessment and Plan (Free Text) Plan: GI Bleed Cardiac Clearance for Colonoscopy ( s/p on 04/19/18) Imaging: - ECHO: ordered, pending official read - Prior nuclear stress test 10/2016 - was normal - Repeat Nuclear Stress Test: normal, no ischemia noted Management: - Patient has low risk of any adverse cardiovascular event occuring during colonoscopy - Patient is s/p colonoscopy Case discussed with Cheryl Márquez DO, PGY2 <Jt Rubio - Last Filed: 04/20/18 22:21> Objective - Vital Signs/Intake and Output Vital Signs (last 24 hours): Temp Pulse Resp BP Pulse Ox 97.9 F 91 H 20 117/63 100 04/20/18 16:00 04/20/18 16:00 04/20/18 16:00 04/20/18 16:00 04/20/18 16:00 - Medications Medications: Current Medications Baclofen (Lioresal) 10 mg PO BID [facility] Last Admin: 04/20/18 17:31 Dose: 10 mg Diltiazem HCl (Cardizem) 60 mg PO TID [facility] Last Admin: 04/20/18 17:31 Dose: 60 mg Docusate Sodium (Colace) 100 mg PO TID [facility] Last Admin: 04/20/18 17:40 Dose: Not Given Finasteride (Proscar) 5 mg PO DAILY [facility] Last Admin: 04/20/18 10:18 Dose: 5 mg Gabapentin (Neurontin) 800 mg PO BID [facility] Last Admin: 04/20/18 17:31 Dose: 800 mg Influenza Virus Vaccine (Fluzone Quad [id number]) 60 mcg IM .ONCE ONE Stop: 04/21/18 10:01 Morphine Sulfate (Morphine Extended Release Tab) 30 mg PO Q12 [facility] Last Admin: 04/20/18 22:09 Dose: 30 mg Nicotine (Nicoderm Cq) 1 patch TD DAILY [facility] Last Admin: 04/20/18 10:18 Dose: 1 patch Oxycodone/Acetaminophen (Percocet 5/325 Mg Tab) 1 tab PO Q6 PRN PRN Reason: Pain, severe (8-10) Stop: 04/21/18 18:01 Last Admin: 04/20/18 18:46 Dose: 1 tab Pantoprazole Sodium (Protonix Inj) 40 mg IVP Q12H [facility] Last Admin: 04/20/18 21:55 Dose: 40 mg Pneumococcal Polyvalent Vaccine (Pneumovax 23 Vaccine) 0.5 ml IM .ONCE ONE Stop: 04/21/18 10:01 Sennosides (Senokot Tab) 8.6 mg PO DAILY [facility] Last Admin: 04/20/18 10:18 Dose: Not Given Tamsulosin HCl (Flomax) 0.4 mg PO DAILY [facility] Last Admin: 04/20/18 10:22 Dose: 0.4 mg Vancomycin HCl (Vancocin (Oral Or Rectal Use)) 125 mg PO QID [facility]; Protocol Last Admin: 04/20/18 22:09 Dose: 125 mg - Labs Labs: 04/20/18 06:25 04/20/18 06:25 PT 13.6 SECONDS (9.7-12.2) H 04/14/18 19:04 INR 1.2 04/14/18 19:04 APTT 29 SECONDS (21-34) 04/14/18 19:04 Assessment and Plan - Assessment and Plan (Free Text) Plan: patient seen and evaluated personally by me Plan of care d/w the medical secretary receptionist and as documented
[2018-04-20] MEDS: Morphine 15 mg SR Tab PO SCH ×2 (10:17→22:09)
[2018-04-20] MEDS: Vancomycin 125 MG/5 ML SOLN (ORAL/RECTAL) PO SCH ×4 (10:23→22:09)
[2018-04-20 10:30] VITALS: RESP 20
--- NOTE | 2018-04-20 13:24 | CP.PCM.PN ---
Subjective - Date & Time of Evaluation Date of Evaluation: 04/20/18 Time of Evaluation: 13:21 - Subjective Subjective: HOSPITALIST SERVICE Pt seen and examined at bedside, Pt is s/p Colonoscopy w/ Dr Barth today, Pt is hungry, also wants to leave AMA, however understand that he has C Diff and needs to be monitored and take appropriate antibiotics. 12 Point ROS reviewed and otherwise unremarkable Objective - Vital Signs/Intake and Output Vital Signs (last 24 hours): Temp Pulse Resp BP Pulse Ox 97.8 F 70 20 126/68 98 04/20/18 10:15 04/20/18 12:00 04/20/18 10:15 04/20/18 10:15 04/20/18 10:15 - Medications Medications: Current Medications Baclofen (Lioresal) 10 mg PO BID [facility] Last Admin: 04/20/18 10:19 Dose: 10 mg Diltiazem HCl (Cardizem) 60 mg PO TID [facility] Docusate Sodium (Colace) 100 mg PO TID [facility] Last Admin: 04/20/18 13:16 Dose: Not Given Finasteride (Proscar) 5 mg PO DAILY [facility] Last Admin: 04/20/18 10:18 Dose: 5 mg Gabapentin (Neurontin) 800 mg PO BID [facility] Last Admin: 04/20/18 10:19 Dose: 800 mg Influenza Virus Vaccine (Fluzone Quad [id number]) 60 mcg IM .ONCE ONE Stop: 04/21/18 10:01 Morphine Sulfate (Morphine Extended Release Tab) 30 mg PO Q12 [facility] Last Admin: 04/20/18 10:17 Dose: 30 mg Nicotine (Nicoderm Cq) 1 patch TD DAILY [facility] Last Admin: 04/20/18 10:18 Dose: 1 patch Oxycodone/Acetaminophen (Percocet 5/325 Mg Tab) 1 tab PO Q6 PRN PRN Reason: Pain, severe (8-10) Stop: 04/21/18 18:01 Last Admin: 04/20/18 12:45 Dose: 1 tab Pantoprazole Sodium (Protonix Inj) 40 mg IVP Q12H [facility] Last Admin: 04/20/18 10:18 Dose: 40 mg Pneumococcal Polyvalent Vaccine (Pneumovax 23 Vaccine) 0.5 ml IM .ONCE ONE Stop: 04/21/18 10:01 Sennosides (Senokot Tab) 8.6 mg PO DAILY [facility] Last Admin: 04/20/18 10:18 Dose: Not Given Tamsulosin HCl (Flomax) 0.4 mg PO DAILY [facility] Last Admin: 04/20/18 10:22 Dose: 0.4 mg Vancomycin HCl (Vancocin (Oral Or Rectal Use)) 125 mg PO QID [facility]; Protocol Last Admin: 04/20/18 10:23 Dose: 125 mg - Labs Labs: 04/20/18 06:25 04/20/18 06:25 PT 13.6 SECONDS (9.7-12.2) H 04/14/18 19:04 INR 1.2 04/14/18 19:04 APTT 29 SECONDS (21-34) 04/14/18 19:04 - Additional Findings Additional findings: - Constitutional Appears: Non-toxic, Cachectic - Head Exam Head Exam: ATRAUMATIC, NORMAL INSPECTION - Eye Exam Eye Exam: EOMI, Normal appearance. absent: Scleral icterus Pupil Exam: NORMAL ACCOMODATION - ENT Exam ENT Exam: Mucous Membranes Moist, Normal Exam - Respiratory Exam Respiratory Exam: Clear to Ausculation Bilateral. absent: Wheezes, Respiratory Distress - Cardiovascular Exam Cardiovascular Exam: RRR, +S1, +S2. absent: Tachycardia - GI/Abdominal Exam GI & Abdominal Exam: Soft, Normal Bowel Sounds, non-tender ventral hernia noted, chronic in previous documentation. absent: Distended, Firm, Tenderness, Rebound - Rectal Exam Rectal Exam: Deferred - Extremities Exam Extremities Exam: Tenderness (bilateral knee and shoulder pain with passive ROM) - Back Exam Back Exam: muscle spasm (bilateral paraspinal hypertonicity in cervical and lumbar spine) - Neurological Exam Neurological Exam: Alert, Awake, CN II-XII Intact, Oriented x3 - Psychiatric Exam Psychiatric exam: Anxious - Skin Skin Exam: Normal Color, Warm Assessment and Plan - Assessment and Plan (Free Text) Assessment: 77m pending with possible GI bleed for colonoscopy w/ Dr Barth weds AM PLAN C Diff Colitis w/Leukocytosis * 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 Best on board help appreciated * Colonoscopy * 04/18 NEG 24hr blood cultures * .83 procal and 1.8 Lactate * Dr. Rebollar on board help appreciated * CT abdomen/Pelvis: evaluation of the bowel is limited in the absence of oral contrast. Modertae dilatation of the fluid filled stomach and proximal and mid small bowel loops. The distal small bowel loops are decompressed. Findings are nonspecific and could be related to developing acute small obstruction or onspecfici infectious/inflammatory enteritis. Colonic diverticulosis without CT evidence of acute diverticulitis. * Abdominal Xray (04/14/18): no bowel obstruction or free air present * Abdominal xray (04/15/18): no active disease * EGD (04/15/18): la grade B esophagitis with no bleeding was found. No biopsies or other specimens were collected for this exam. No gross lesions were noted in the gastric fundus and in the gastric antrum. A medium amount of food mixed with dark liquid in the gastric body. 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 No gross lesions were noted in the second portion of the duodenum. * Patient received 2 units of PRBC during hospitalization. * Pending colonoscopy w/ Dr Barth: possible weds AM Current smoker * patient advised to stop smoking * Nicoderm patch daily Chronic Pain - s/p cervical fusion * Pain Managment w/ Dr Cornelius as outpatient -receiving the following: * Morphine ER 30mg PO BID * Percocet 5/325 1 tab PO Q8H * Gabapentin 800mg PO BID * Baclofen 10mg tid * Celebrex 200mg PO BID (held) * Cardizem 60mg PO TID * Cilastozol 50mg PO BID (held) Anemia Acute due to likely GI Bleed * s/p 2 units of PRBCs * Ferritin: 31 * s/p EGB 04/15/18 * repeat type and cross 1 unit PRBC if needed History of incisional hernia * Was scheduled for repair last year but was cancelled per surgery note. Preop clearance * Dr Rubio is consulted * echo 04/18: EF 70% * nuclear stress test 04/18; no ischemia noted * Pt is low risk Prophylactic Measure * Chemical contraindication secondary to suspected GI bleed * Protonix 40mg IV Q12H * Fall risk precaution * Patient advised strongly he is not medically stable for discharge. He was advised he would be leaving against medical advice. * Reconsult PT/OT Lázaro Ross PGY1 d/w Dr India Renteria
--- NOTE | 2018-04-20 17:14 | RAD ---
Date of service: 04/20/2018 PROCEDURE: Radiographs of the chest and abdomen (obstructive series) HISTORY: Pseudomembranous colitis COMPARISON: No prior. TECHNIQUE: AP radiograph of the chest, with upright and supine radiographs of the abdomen. FINDINGS: CHEST: Lungs: Clear. Cardiovascular: Normal size heart. No pulmonary vascular congestion. No aortic atherosclerotic calcification present Pleura: No pleural fluid. No pneumothorax. Other findings: None. ABDOMEN AND PELVIS: Bowel: Unremarkable bowel gas pattern. No evidence of mechanical obstruction. Free air: None. Bones: Unremarkable. Other findings: Vascular calcifications left upper quadrant abdomen. IMPRESSION: Unremarkable radiographs of chest and abdomen. No evidence of mechanical bowel obstruction.
--- NOTE | 2018-04-20 18:21 | CP.PCM.CON ---
History of Present Illness - History of Present Illness History of Present Illness: 77M admitted to hospital for black colored bowel movements. Referred for ID eval of pseudomembranes on colon bx Patient states that he had a similar episode 4 years ago where he required emergency [place] [facility] [place] 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 Hardin, Dr. Best: GI Code: Full Code Review of Systems - Review of Systems All systems: reviewed and no additional remarkable complaints except - Constitutional Constitutional: As Per HPI - EENT Eyes: absent: As Per HPI, Blind Spots, Blurred Vision, Change in Vision, Decreased Night Vision, Diplopia, Discharge, Dry Eye, Exophthalmos, Floaters, Irritation, Itchy Eyes, Loss of Peripheral Vision, Pain, Photophobia, Requires Corrective Lenses, Sees Flashes, Spots in Vision, Tunnel Vision, Other Visual Disturbances, Loss of Vision, Other Ears: absent: As Per HPI, Decreased Hearing, Ear Discharge, Ear Pain, Tinnitus, Abnormal Hearing, Disequilibrium, Dizziness, Other Nose/Mouth/Throat: absent: As Per HPI, Epistaxis, Nasal Congestion, Nasal Discharge, Nasal Obstruction, Nasal Trauma, Nose Pain, Post Nasal Drip, Sinus Pain, Sinus Pressure, Bleeding Gums, Change in Voice, Dental Pain, Dry Mouth, Dysphagia, Halitosis, Hoarsness, Lip Swelling, Mouth Lesions, Mouth Pain, Odynophagia, Sore Throat, Throat Swelling, Tongue Swelling, Facial Pain, Neck Pain, Neck Mass, Other - Cardiovascular Cardiovascular: absent: As Per HPI, Acrocyanosis, Chest Pain, Chest Pain at Rest, Chest Pain with Activity, Claudication, Diaphoresis, Dyspnea, Dyspnea on Exertion, Edema, Irregular Heart Rhythm, Pain Radiating to Arm/Neck/Jaw, Leg Edema, Leg Ulcers, Lightheadedness, Orthopnea, Palpitations, Paroxysmal Nocturnal Dyspnea, Pedal Edema, Radiating Pain, Rapid Heart Rate, Slow Heart Rate, Syncope, Other - Respiratory Respiratory: absent: As Per HPI, Cough, Dyspnea, Hemoptysis, Dyspnea on Exertion, Wheezing, Snoring, Stridor, Pain on Inspiration, Chest Congestion, Excessive Mucous Production, Change in Mucous Color, Pain with Coughing, Other - Gastrointestinal Gastrointestinal: As Per HPI - Genitourinary Genitourinary: absent: As Per HPI, Change in Urinary Stream, Difficulty Urinating, Dysuria, Flank Pain, Hematuria, Pyuria, Nocturia, Urinary Incontinence, Urinary Frequency, Urinary Hesitance, Urinary Urgency, Voiding Freq/Small Amts, Freq UTI, Hx Renal/Bladder Calculi, Hx /Renal Surgery, Bladder Distension, Other - Musculoskeletal Musculoskeletal: absent: As Per HPI, Abnormal Gait, Arthralgias, Atrophy, Back Pain, Deformity, Joint Swelling, Limited Range of Motion, Loss of Height, Muscle Cramps, Muscle Weakness, Myalgias, Neck Pain, Numbness, Radiating Pain into Limb, Stiffness, Tingling, Other - Integumentary Integumentary: absent: As Per HPI, Acne, Alopecia, Bleeding Lesions, Change in Hair, Change in Nails, Change in Pigmentation, Changing Lesions, Dry Skin, Erythema, Furuncle, Hirsutism, Lesions, New Lesions, Non-Healing Lesions, Photosensitivity, Pruritus, Rash, Skin Pain, Skin Ulcer, Sores, Striae, Swelling, Unusual Bruising, Wounds, Jaundice, Other - Neurological Neurological: absent: As Per HPI, Abnormal Gait, Abnormal Hearing, Abnormal Movements, Abnormal Speech, Behavioral Changes, Burning Sensations, Confusion, Convulsions, Disequilibrium, Dizziness, Numbness, Focal Weakness, Frequent Falls, Headaches, Lack of Coordination, Loss of Vision, Memory Loss, Paresthesias, Radicular Pain, Restless Legs, Sensory Deficit, Syncope, Tingling, Tremor, Vertigo, Weakness, Other Visual Disturbances, Other - Psychiatric Psychiatric: absent: As Per HPI, Abnormal Sleep Pattern, Anhedonia, Anxiety, Auditory Hallucinations, Behavioral Changes, Change in Appetite, Change in Libido, Confusion, Depression, Difficulty Concentrating, Hallucinations, Homicidal Ideation, Hopelessness, Irritability, Memory Loss, Mood Swings, Panic Attacks, Paranoia, Suicidal Ideation, Visual Hallucinations, Tactile Hallucinations, Other - Endocrine Endocrine: absent: As Per HPI, Change in Body Appearance, Change in Libido, Cold Intolorance, Deepening of Voice, Excessive Sweating, Fatigue, Flushing, Heat Intolorance, Increase in Ring/Shoe/Hat Size, Palpitations, Polydipsia, Polyphagia, Polyuria, Other - Hematologic/Lymphatic Hematologic: absent: As Per HPI, Easy Bleeding, Easy Bruising, Lymphadenopathy, Other Past Patient History - Infectious Disease Hx of Infectious Diseases: None - Past Medical History & Family History Past Medical History?: Yes - Past Social History Smoking Status: Current Some Days Smoker - CARDIAC Hx Hypercholesterolemia: Yes Hx Hypertension: Yes - PULMONARY Hx Respiratory Disorders: No - NEUROLOGICAL Hx Neurological Disorder: No - HEENT Hx HEENT Problems: No - RENAL Hx Chronic Kidney Disease: No - ENDOCRINE/METABOLIC Hx Endocrine Disorders: No - HEMATOLOGICAL/ONCOLOGICAL Hx Blood Disorders: No - INTEGUMENTARY Hx Dermatological Problems: No - MUSCULOSKELETAL/RHEUMATOLOGICAL Hx Musculoskeletal Disorders: No - GASTROINTESTINAL Other/Comment: chronic constipation - GENITOURINARY/GYNECOLOGICAL Hx Genitourinary Disorders: No - PSYCHIATRIC Hx Substance Use: No - SURGICAL HISTORY Hx Appendectomy: Yes - ANESTHESIA Hx Anesthesia: Yes Hx Anesthesia Reactions: No Hx Malignant Hyperthermia: No Meds Allergies/Adverse Reactions: Allergies Allergy/AdvReac Type Severity Reaction Status Date / Time No Known Allergies Allergy Verified 04/14/18 10:06 - Medications Medications: Current Medications Baclofen (Lioresal) 10 mg PO BID [facility] Last Admin: 04/20/18 17:31 Dose: 10 mg Diltiazem HCl (Cardizem) 60 mg PO TID [facility] Last Admin: 04/20/18 17:31 Dose: 60 mg Docusate Sodium (Colace) 100 mg PO TID [facility] Last Admin: 04/20/18 17:40 Dose: Not Given Finasteride (Proscar) 5 mg PO DAILY [facility] Last Admin: 04/20/18 10:18 Dose: 5 mg Gabapentin (Neurontin) 800 mg PO BID [facility] Last Admin: 04/20/18 17:31 Dose: 800 mg Influenza Virus Vaccine (Fluzone Quad [id number]) 60 mcg IM .ONCE ONE Stop: 04/21/18 10:01 Morphine Sulfate (Morphine Extended Release Tab) 30 mg PO Q12 [facility] Last Admin: 04/20/18 10:17 Dose: 30 mg Nicotine (Nicoderm Cq) 1 patch TD DAILY [facility] Last Admin: 04/20/18 10:18 Dose: 1 patch Oxycodone/Acetaminophen (Percocet 5/325 Mg Tab) 1 tab PO Q6 PRN PRN Reason: Pain, severe (8-10) Stop: 04/21/18 18:01 Last Admin: 04/20/18 12:45 Dose: 1 tab Pantoprazole Sodium (Protonix Inj) 40 mg IVP Q12H [facility] Last Admin: 04/20/18 10:18 Dose: 40 mg Pneumococcal Polyvalent Vaccine (Pneumovax 23 Vaccine) 0.5 ml IM .ONCE ONE Stop: 04/21/18 10:01 Sennosides (Senokot Tab) 8.6 mg PO DAILY [facility] Last Admin: 04/20/18 10:18 Dose: Not Given Tamsulosin HCl (Flomax) 0.4 mg PO DAILY [facility] Last Admin: 04/20/18 10:22 Dose: 0.4 mg Vancomycin HCl (Vancocin (Oral Or Rectal Use)) 125 mg PO QID [facility]; Protocol Last Admin: 04/20/18 17:36 Dose: 125 mg Physical Exam - Constitutional Appears: Non-toxic, Cachectic, Chronically Ill - Head Exam Head Exam: ATRAUMATIC, NORMAL INSPECTION, NORMOCEPHALIC - Eye Exam Eye Exam: EOMI, PERRL. absent: Scleral icterus - ENT Exam ENT Exam: Mucous Membranes Dry, Normal Oropharynx - Neck Exam Neck exam: Negative for: Lymphadenopathy - Respiratory Exam Respiratory Exam: Decreased Breath Sounds, Clear to Auscultation Bilateral - Cardiovascular Exam Cardiovascular Exam: REGULAR RHYTHM, +S1, +S2 - GI/Abdominal Exam GI & Abdominal Exam: Diminished Bowel Sounds, Soft. absent: Tenderness - Rectal Exam Rectal Exam: Deferred - Exam Exam: NORMAL INSPECTION - Extremities Exam Extremities exam: Positive for: pedal pulses present. Negative for: calf tenderness, pedal edema, tenderness - Back Exam Back exam: absent: CVA tenderness (L), CVA tenderness (R) - Neurological Exam Neurological exam: Alert, CN II-XII Intact, Oriented x3, Reflexes Normal - Psychiatric Exam Psychiatric exam: Depressed - Skin Skin Exam: Dry Results - Vital Signs Recent Vital Signs: Last Vital Signs Temp 97.9 F 04/20/18 16:00 Pulse 91 H 04/20/18 16:00 Resp 20 04/20/18 16:00 BP 117/63 04/20/18 16:00 Pulse Ox 100 04/20/18 16:00 - Labs Result Diagrams: 04/20/18 06:25 04/20/18 06:25 Labs: Laboratory Results - last 24 hr 04/20/18 04/20/18 04/20/18 06:25 06:25 08:45 WBC 23.0 H RBC 2.83 L Hgb 8.9 L Hct 26.1 L MCV 92.3 MCH 31.4 H MCHC 34.0 RDW 15.8 H Plt Count 315 MPV 7.7 Neut % (Auto) 77.6 H Lymph % (Auto) 7.7 L [place] % (Auto) 11.5 H Eos % (Auto) 3.0 Baso % (Auto) 0.2 Neut # (Auto) 17.8 H Lymph # (Auto) 1.8 [place] # (Auto) 2.6 H Eos # (Auto) 0.7 Baso # (Auto) 0.1 Neutrophils % (Manual) 78 H Band Neutrophils % 1 Lymphocytes % (Manual) 8 L Monocytes % (Manual) 10 Eosinophils % (Manual) 2 Basophils % (Manual) 1 Platelet Estimate Normal Hypochromasia (manual) Slight Poikilocytosis (manual Slight Anisocytosis (manual) Slight Ovalocytes Slight Dobson Cells Slight Acanthocytes (Spur) Slight Sodium 135 Potassium 4.1 Chloride 102 Carbon Dioxide 24 Anion Gap 13 BUN 11 Creatinine 1.0 Est GFR ( Amer) > 60 Est GFR (Non-Af Amer) > 60 Random Glucose 95 Calcium 8.9 Phosphorus 2.4 L Magnesium 1.6 Total Bilirubin 0.3 AST 16 L D ALT 24 Alkaline Phosphatase 84 Total Protein 6.6 Albumin 3.4 L Globulin 3.1 Albumin/Globulin Ratio 1.1 C. difficile Ag & Toxin Positive H Assessment & Plan (1) Pseudomembranous colitis Status: Acute (2) GI bleed Status: Acute - Assessment and Plan (Free Text) Assessment: agree with your rx consider difcid if vanco fails would treat for min 10-14 days
[2018-04-21] MEDS: Oxycodone/Acetaminophen 5/325 mg Tab PO PRN ×2 (00:43→06:42)
[2018-04-21 02:13] VITALS: O2SAT 99
[2018-04-21 06:46] LABS: BASO # 0.1 K/uL (0.0-0.2); BASO % 0.4 % (0.0-2.0); EOS # 0.5 K/uL (0.0-0.7); EOS % 4.7 % (0.0-4.0); HEMOGLOBIN 8.7 g/dL (12.0-18.0); LYMPH # 2.4 K/uL (1.0-4.3); MEAN CELL VOLUME 91.4 fL (80.0-94.0); MEAN CORPUSCULAR HEMOGLOBIN 30.7 pg (27.0-31.0); MEAN CORPUSCULAR HGB CONC 33.6 g/dL (33.0-37.0); MEAN PLATELET VOLUME 7.1 fL (7.2-11.7); MONO # 1.4 K/uL (0.0-0.8); MONO % 12.4 % (0.0-10.0); NEUT # 7.2 K/uL (1.8-7.0); NEUT % 61.5 % (50.0-75.0); RBC 2.84 Mil/uL (4.40-5.90); RED CELL DISTRIBUTION WIDTH 15.6 % (11.5-14.5); WHITE BLOOD COUNT 11.7 K/uL (4.8-10.8)
[2018-04-21 07:36] LABS: ALBUMIN 3.3 g/dL (3.5-5.0); ALT/SGPT 25 U/L (21-72); AST/SGOT 21 U/L (17-59); BLOOD UREA NITROGEN 5 mg/dL (9-20); CALCIUM 9.1 mg/dl (8.6-10.4); GFR NON-AFRICAN AMERICAN > 60
[2018-04-21 07:40] VITALS: TEMP 97.9
[2018-04-21] MEDS: Vancomycin 125 MG/5 ML SOLN (ORAL/RECTAL) PO SCH (09:08)
[2018-04-21] MEDS: Morphine 15 mg SR Tab PO SCH (09:09)
[2018-04-21] MEDS ORDERED: Influenza Vaccine 60 MCG/0.5 ML SYR (3 yr & up) IM ONE (10:00)
[2018-04-21] MEDS ORDERED: Pneumococcal 23-Valent Vaccine IM ONE (10:00)
--- NOTE | 2018-04-21 10:06 | CP.PCM.PN ---
Subjective - Date & Time of Evaluation Date of Evaluation: 04/21/18 Time of Evaluation: 09:45 - Subjective Subjective: Hospitalist Progress Note Patient was seen and examined at 9:45 AM 04/21/18 Upon FULL ROS Had soft bowel movement this morning that was NOT Black, NOT Bloody but brown NO n/v NO abdominal pain NO chest pain NO palpitations NO SOB/Cough/Wheezing NO headache NO new changes in vision NO new changes in hearing NO lightheadedness dizziness NO urinary complaints NO paresthesias Exam: General: AAOX3, NAD HEENT: NCA, EOMI, PERRLA, NO lymphadenopathy, NO pharyngeal erythema/exudate, NO thyromegaly Cardio: NS1 and NS2, NO M/R/G Resp: CTA B/L, NO R/R/W GI: BSx4, Soft, NT, ND, NO HSM, NO guarding/rebound tenderness, Midline abdominal incisional hernia that is easily reducible (NOT warm, NOT tender, NO erythema) Ext: Pulses are strong and equal, capillary refill is 2 seconds, NO edema Neuro: CN II through XII are grossly intact Assessments: 1). Acute Anemia Secondary to GI Bleed Esophagitis Psuedomembrane Colitis 2). Hypokalemia 3). Hx Nicotine Addiction 4). Hx Chronic Back Pain 5). Leukocytosis 6). Hx Incisional Hernia 7). Hx BPH S/P Colonoscopy on 04/19/18 that showed Psuedomembranes. NO longer with blood b owel movements. HgB/Hct are stable. Started on Oral Vancomycin and will continue for the next 10 days Potassium has normalized Will need to follow up with [place] [facility] for resources in his area to help him stop smoking. He understands the dangers that this poses to his health. He will need to follow up with his pain management physician for further management of his chronic back pain and for prescriptions. WBC count has dramatically dropped to almost normal after starting the oral Vancomycin. NO fevers. Blood and Urine Cultures are negative to date. Chest X Ray does not show any acute disease process. Patient has stated that he knows that he has to have a surgeon take a look at his history of incisional hernia but has been putting this off due to caring for his whom he has to take to HD 3x/week. Patient is stable for discharge and for further management as an outpatient. The following instructions were explained at length to patient and a copy will need to be provided to him upon discharge: 1). Schedule follow up with your primary care physician Dr. Dillan Hardin to take place in the next 7 to 10 days for further coordination of your health care and for a refill on your home medications. 2). Schedule follow up with Gis Technician Dr. Ehsan Best to take place n ext week by calling his office at [phone]. You will need to follow up the results of the biopsies that were taken at the time of your Colonoscopy and to make sure that your colon infection is resolving. 3). Do not delay any further evaluation for your abdominal hernia. We recommend Surgeon Dr. Navdeep Lima. Please call his office at [phone]. Please make sure that you obtain referral to see him from your primary care physician Dr. Dillan Hardin. 4). You can keep reinfecting yourself and those around you from your colon infection. Therefore it is extremely important that after toileting that you wash your hands thoroughly with warm soap and water. 5). You must stop smoking as this will kill you. Please call [phone] for resources in your area to help you to stop smoking. 6). Schedule follow up with your Pain Management Physician for refills on your pain medications. 7). The following prescription should be filled at your pharmacy on your way home from the hospital: Vancomycin 125 mg, 1 tablet by mouth 4x/day (8 AM, 12 PM, 4 PM, 8 PM) until finished, Dispense #40, NO refills. 8). Please take care and be well. Paco Renteria D.O. Objective - Vital Signs/Intake and Output Vital Signs (last 24 hours): Temp Pulse Resp BP Pulse Ox 97.9 F 78 20 110/66 99 04/21/18 07:00 04/21/18 07:00 04/21/18 07:00 04/21/18 07:00 04/21/18 07:00 - Medications Medications: Current Medications Baclofen (Lioresal) 10 mg PO BID [facility] Last Admin: 04/21/18 09:08 Dose: 10 mg Diltiazem HCl (Cardizem) 60 mg PO TID [facility] Last Admin: 04/21/18 09:07 Dose: 60 mg Docusate Sodium (Colace) 100 mg PO TID [facility] Last Admin: 04/21/18 09:09 Dose: Not Given Finasteride (Proscar) 5 mg PO DAILY [facility] Last Admin: 04/21/18 09:07 Dose: 5 mg Gabapentin (Neurontin) 800 mg PO BID [facility] Last Admin: 04/21/18 09:08 Dose: 800 mg Influenza Virus Vaccine (Fluzone Quad [id number]) 60 mcg IM .ONCE ONE Stop: 04/21/18 10:01 Last Admin: 04/21/18 09:39 Dose: 60 mcg Morphine Sulfate (Morphine Extended Release Tab) 30 mg PO Q12 [facility] Last Admin: 04/21/18 09:09 Dose: 30 mg Nicotine (Nicoderm Cq) 1 patch TD DAILY [facility] Last Admin: 04/21/18 09:08 Dose: Not Given Oxycodone/Acetaminophen (Percocet 5/325 Mg Tab) 1 tab PO Q6 PRN PRN Reason: Pain, severe (8-10) Stop: 04/21/18 18:01 Last Admin: 04/21/18 06:42 Dose: 1 tab Pantoprazole Sodium (Protonix Inj) 40 mg IVP Q12H [facility] Last Admin: 04/21/18 09:08 Dose: 40 mg Pneumococcal Polyvalent Vaccine (Pneumovax 23 Vaccine) 0.5 ml IM .ONCE ONE Stop: 04/21/18 10:01 Last Admin: 04/21/18 09:40 Dose: 0.5 ml Sennosides (Senokot Tab) 8.6 mg PO DAILY [facility] Last Admin: 04/21/18 09:09 Dose: Not Given Tamsulosin HCl (Flomax) 0.4 mg PO DAILY [facility] Last Admin: 04/21/18 09:08 Dose: 0.4 mg Vancomycin HCl (Vancocin (Oral Or Rectal Use)) 125 mg PO QID [facility]; Protocol Last Admin: 04/21/18 09:08 Dose: 125 mg - Labs Labs: 04/21/18 06:40 04/21/18 06:40 PT 13.6 SECONDS (9.7-12.2) H 04/14/18 19:04 INR 1.2 04/14/18 19:04 APTT 29 SECONDS (21-34) 04/14/18 19:04
--- NOTE | 2018-04-21 10:53 | CP.PCM.DIS ---
Provider - Provider Date of Admission: 04/14/18 14:22 Attending physician: Paco Renteria MD Consults: 04/14/18 15:19 Gastroenterology Consult Routine Comment: patient's gi Consulting Provider: Ehsan Best Consulting Physician: Ehsan Best Reason for Consult: black stool, anemia, diverticulitis 04/14/18 15:22 General Surgery Consult Routine Comment: Consulting Provider: Tala Rebollar Consulting Physician: Tala Rebollar Reason for Consult: concern for ischemic bowel, black stool 04/14/18 16:17 Critical Care Consult Routine Comment: Consulting Provider: Ingris Renteria Consulting Physician: Ingris Renteria Reason for Consult: melena, drop in Hgb 04/15/18 13:13 Psychiatry Consult Routine Comment: Consulting Provider: Roula Ruelas Consulting Physician: Roula Ruelas Reason for Consult: Wants to sign AMA 04/17/18 13:26 Cardiology Consult Routine Comment: Consulting Provider: Jt Rubio Consulting Physician: Jt Rubio Reason for Consult: htn. cad 04/20/18 11:35 Infectious Disease Consult Routine Comment: Consulting Provider: Karl Lynn Consulting Physician: Karl Lynn Reason for Consult: Psuedomembranes on Colonoscopy. Vanco PO started Time Spent in preparation of Discharge (in minutes): 45 Hospital Course - Lab Results Lab Results: Micro Results 04/18/18 13:54 Blood-Venous Blood Culture - Preliminary NO GROWTH AFTER 48 HOURS 04/18/18 13:54 Blood-Venous Blood Culture - Preliminary NO GROWTH AFTER 48 HOURS 04/19/18 00:30 Urine,Clean Catch Urine Culture - Final No Growth (<1,000 CFU/ML) 04/14/18 19:12 Blood Blood Culture - Final NO GROWTH AFTER 5 DAYS 04/14/18 19:12 Blood Gram Stain - Final TEST NOT PERFORMED 04/14/18 19:12 Blood Blood Culture - Final NO GROWTH AFTER 5 DAYS 04/14/18 19:12 Blood Gram Stain - Final TEST NOT PERFORMED 04/14/18 19:04 Nose MRSA Culture (Admit) - Final MRSA NOT DETECTED 04/14/18 10:31 Urine Urine Culture - Final No Growth (<1,000 CFU/ML) Most Recent Lab Values WBC 11.7 K/uL (4.8-10.8) H 04/21/18 06:40 RBC 2.84 Mil/uL (4.40-5.90) L 04/21/18 06:40 Hgb 8.7 g/dL (12.0-18.0) L 04/21/18 06:40 Hct 26.0 % (35.0-51.0) L 04/21/18 06:40 MCV 91.4 fL (80.0-94.0) 04/21/18 06:40 MCH 30.7 pg (27.0-31.0) 04/21/18 06:40 MCHC 33.6 g/dL (33.0-37.0) 04/21/18 06:40 RDW 15.6 % (11.5-14.5) H 04/21/18 06:40 Plt Count 348 K/uL (130-400) 04/21/18 06:40 MPV 7.1 fL (7.2-11.7) L 04/21/18 06:40 Neut % (Auto) 61.5 % (50.0-75.0) 04/21/18 06:40 Lymph % (Auto) 21.0 % (20.0-40.0) 04/21/18 06:40 [place] % (Auto) 12.4 % (0.0-10.0) H 04/21/18 06:40 Eos % (Auto) 4.7 % (0.0-4.0) H 04/21/18 06:40 Baso % (Auto) 0.4 % (0.0-2.0) 04/21/18 06:40 Neut # (Auto) 7.2 K/uL (1.8-7.0) H 04/21/18 06:40 Lymph # (Auto) 2.4 K/uL (1.0-4.3) 04/21/18 06:40 [place] # (Auto) 1.4 K/uL (0.0-0.8) H 04/21/18 06:40 Eos # (Auto) 0.5 K/uL (0.0-0.7) 04/21/18 06:40 Baso # (Auto) 0.1 K/uL (0.0-0.2) 04/21/18 06:40 Neutrophils % (Manual) 78 % (50-75) H 04/20/18 06:25 Band Neutrophils % 1 % (0-2) 04/20/18 06:25 Lymphocytes % (Manual) 8 % (20-40) L 04/20/18 06:25 Monocytes % (Manual) 10 % (0-10) 04/20/18 06:25 Eosinophils % (Manual) 2 % (0-4) 04/20/18 06:25 Basophils % (Manual) 1 % (0-2) 04/20/18 06:25 Platelet Estimate Normal (NORMAL) 04/20/18 06:25 Polychromasia Slight 04/19/18 07:42 Hypochromasia (manual) Slight 04/20/18 06:25 Poikilocytosis (manual Slight 04/20/18 06:25 Anisocytosis (manual) Slight 04/20/18 06:25 Ovalocytes Slight 04/20/18 06:25 Fady Cells Slight 04/20/18 06:25 Acanthocytes (Spur) Slight 04/20/18 06:25 PT 13.6 SECONDS (9.7-12.2) H 04/14/18 19:04 INR 1.2 04/14/18 19:04 APTT 29 SECONDS (21-34) 04/14/18 19:04 Fibrinogen 259 mg/dL (200-400) 04/14/18 19:04 pO2 16 mm/Hg (30-55) L 04/18/18 13:46 VBG pH 7.26 (7.32-7.43) L 04/18/18 13:46 VBG pCO2 45 mmHg (40-60) 04/18/18 13:46 VBG HCO3 17.4 mmol/L 04/18/18 13:46 VBG Total CO2 21.6 mmol/L (22-28) L 04/18/18 13:46 VBG O2 Sat (Calc) 25.7 % (40-65) L 04/18/18 13:46 VBG Base Excess -6.8 mmol/L (0.0-2.0) L 04/18/18 13:46 VBG Potassium 3.9 mmol/L (3.6-5.2) 04/18/18 13:46 Sodium 139.0 mmol/l (132-148) 04/18/18 13:46 Chloride 110.0 mmol/L (98-107) H 04/18/18 13:46 Glucose 103 mg/dl (75-110) 04/18/18 13:46 Lactate 1.8 mmol/L (0.7-2.1) 04/18/18 13:46 Crit Value Called To Nora bonilla 04/14/18 16:00 Crit Value Called By Pauline sosa 04/14/18 16:00 Crit Value Read Back Y 04/14/18 16:00 Blood Gas Notified Time 1618 04/14/18 16:00 Sodium 137 mmol/L (132-148) 04/21/18 06:40 Potassium 4.0 mmol/L (3.6-5.2) 04/21/18 06:40 Chloride 100 mmol/L (98-107) 04/21/18 06:40 Carbon Dioxide 26 mmol/L (22-30) 04/21/18 06:40 Anion Gap 14 (10-20) 04/21/18 06:40 BUN 5 mg/dL (9-20) L 04/21/18 06:40 Creatinine 0.9 mg/dL (0.8-1.5) 04/21/18 06:40 Est GFR ( Amer) > 60 04/21/18 06:40 Est GFR (Non-Af Amer) > 60 04/21/18 06:40 POC Glucose (mg/dL) 149 mg/dL (65-110) H 04/16/18 17:19 Random Glucose 100 mg/dL (75-110) 04/21/18 06:40 Lactic Acid 1.2 mmol/L (0.7-2.1) 04/14/18 22:24 Calcium 9.1 mg/dl (8.6-10.4) 04/21/18 06:40 Phosphorus 3.0 mg/dL (2.5-4.5) 04/21/18 06:40 Magnesium 1.7 mg/dL (1.6-2.3) 04/21/18 06:40 Ferritin 31.1 ng/mL 04/14/18 17:41 Total Bilirubin 0.3 mg/dL (0.2-1.3) 04/21/18 06:40 AST 21 U/L (17-59) 04/21/18 06:40 ALT 25 U/L (21-72) 04/21/18 06:40 Alkaline Phosphatase 76 U/L (38-126) 04/21/18 06:40 Total Protein 6.4 g/dL (6.3-8.3) 04/21/18 06:40 Albumin 3.3 g/dL (3.5-5.0) L 04/21/18 06:40 Globulin 3.1 gm/dL (2.2-3.9) 04/21/18 06:40 Albumin/Globulin Ratio 1.0 (1.0-2.1) 04/21/18 06:40 Lipase 61 U/L (23-300) 04/14/18 10:31 Procalcitonin 0.86 NG/ML (0.19-0.49) H 04/18/18 13:54 Venous Blood Potassium 3.9 mmol/L (3.6-5.2) 04/18/18 13:46 Urine Color Yellow (YELLOW) 04/19/18 00:30 Urine Clarity Clear (Clear) 04/19/18 00:30 Urine pH 5.0 (5.0-8.0) 04/19/18 00:30 Ur Specific [place] 1.019 (1.003-1.030) 04/19/18 00:30 Urine Protein Negative mg/dL (NEGATIVE) 04/19/18 00:30 Urine Glucose (UA) Normal mg/dL (Normal) 04/19/18 00:30 Urine Ketones Negative mg/dL (NEGATIVE) 04/19/18 00:30 Urine Blood Negative (NEGATIVE) 04/19/18 00:30 Urine Nitrate Negative (NEGATIVE) 04/19/18 00:30 Urine Bilirubin Negative (NEGATIVE) 04/19/18 00:30 Urine Urobilinogen Normal mg/dL (0.2-1.0) 04/19/18 00:30 Ur Leukocyte Esterase Neg Joni/uL (Negative) 04/19/18 00:30 Urine WBC (Auto) 4 /hpf (0-5) 04/19/18 00:30 Urine RBC (Auto) 1 /hpf (0-3) 04/19/18 00:30 Ur Squamous Epith Cells 1 /hpf (0-5) 04/19/18 00:30 Urine Bacteria Rare (<OCC) 04/14/18 22:24 Hyaline Casts 3-5 /lpf (0-2) H 04/19/18 00:30 Urine Opiates Screen Positive (NEGATIVE) H 04/14/18 22:26 Urine Methadone Screen Negative (NEGATIVE) 04/14/18 22:26 Ur Barbiturates Screen Negative (NEGATIVE) 04/14/18 22:26 Ur Phencyclidine Scrn Negative (NEGATIVE) 04/14/18 22:26 Ur Amphetamines Screen Negative (NEGATIVE) 04/14/18 22:26 U Benzodiazepines Scrn Negative (NEGATIVE) 04/14/18 22:26 U Oth Cocaine Metabols Negative (NEGATIVE) 04/14/18 22:26 U Cannabinoids Screen Negative (NEGATIVE) 04/14/18 22:26 C. difficile Ag & Toxin Positive (NEGATIVE) H 04/20/18 08:45 Blood Type A POSITIVE 04/17/18 13:55 Antibody Screen Negative 04/17/18 13:55 - Hospital Course Hospital Course: HPI: Patient is a 77 yo male w/ PMH hernia, gi bleed- 4 years, cervical fusion, chronic constipation secondary pain, high cholesterol is admitted to hospital for black colored bowel movements. 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 Patient states that he had a similar episode 4 years ago where he required emergency surgery at [facility]. Patient states he takes no aspirin/NSAIDS at home since his procedure. During interview, patient was in severe pain which limited history taking. Much of the information was provided by daughter and chart review. 12 point ROS not obtained as patient was in severe pain and very lethargic to awaken. 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 Hardin, Dr. Best: GI Code: Full Code HOSPITAL COURSE Pt was admitted to hospitalist service for acute anemia. Pt was started on IVF, IV Rocephin and PTX drip, transfused [address] Barth was consulted for GI. Pt underwent Upper endoscopy which showed no active bleed, pt then underwent colonoscopy which showed pseudomembranous colitis associated with C Diff. Pt changed to PO Vanco 125 QID, observed overnight, put on liquid diet, upraded diet next AM. Pt tolerated foods and WBCs trended down significantly, and was afebrile 48hrs. Pt stable for DC home w/ 10 day course of PO Vanco Patient is stable for discharge and for further management as an outpatient. The following instructions were explained at length to patient and a copy will need to be provided to him upon discharge: 1). Schedule follow up with your primary care physician Dr. Dillan Hardin to take place in the next 7 to 10 days for further coordination of your health care and for a refill on your home medications. 2). Schedule follow up with Audio Visual Technician Dr. Ehsan Best to take place next week by calling his office at [phone]. You will need to follow up the results of the biopsies that were taken at the time of your Colonoscopy and to make sure that your colon infection is resolving. 3). Do not delay any further evaluation for your abdominal hernia. We recommend Surgeon Dr. Navdeep Lima. Please call his office at [phone]. Please make sure that you obtain referral to see him from your primary care physician Dr. Dillan Hardin. 4). You can keep reinfecting yourself and those around you from your colon infection. Therefore it is extremely important that after toileting that you wash your hands thoroughly with warm soap and water. 5). You must stop smoking as this will kill you. Please call [phone] for resources in your area to help you to stop smoking. 6). Schedule follow up with your Pain Management Physician for refills on your pain medications. 7). The following prescription should be filled at your pharmacy on your way home from the hospital: Vancomycin 125 mg, 1 tablet by mouth 4x/day (8 AM, 12 PM, 4 PM, 8 PM) until finished, Dispense #40, NO refills. 8). Please take care and be well. Paco Renteria D.O. Discharge Exam - Head Exam Head Exam: ATRAUMATIC, NORMAL INSPECTION, NORMOCEPHALIC - Additional Findings Additional findings: - Constitutional Appears: Non-toxic, Cachectic - Head Exam Head Exam: ATRAUMATIC, NORMAL INSPECTION - Eye Exam Eye Exam: EOMI, Normal appearance. absent: Scleral icterus Pupil Exam: NORMAL ACCOMODATION - ENT Exam ENT Exam: Mucous Membranes Moist, Normal Exam - Respiratory Exam Respiratory Exam: Clear to Ausculation Bilateral. absent: Wheezes, Respiratory Distress - Cardiovascular Exam Cardiovascular Exam: RRR, +S1, +S2. absent: Tachycardia - GI/Abdominal Exam GI & Abdominal Exam: Soft, Normal Bowel Sounds, non-tender ventral hernia noted, chronic in previous documentation. absent: Distended, Firm, Tenderness, Rebound - Rectal Exam Rectal Exam: Deferred - Extremities Exam Extremities Exam: Tenderness (bilateral knee and shoulder pain with passive ROM) - Back Exam Back Exam: muscle spasm (bilateral paraspinal hypertonicity in cervical and lumbar spine) - Neurological Exam Neurological Exam: Alert, Awake, CN II-XII Intact, Oriented x3 - Psychiatric Exam Psychiatric exam: Anxious - Skin Skin Exam: Normal Color, Warm Discharge Plan - Discharge Medications Prescriptions: Vancomycin [Vancocin (ORAL OR RECTAL USE)] 125 mg PO QID #40 soln - Follow Up Plan Condition: GUARDED Disposition: HOME/ ROUTINE Instructions: Smoking: Not Just Harmful to Your Lungs and Heart, Clostridium difficile, Gastrointestinal Bleeding (DC), Quitting Smoking, Vancomycin Additional Instructions: Patient is stable for discharge and for further management as an outpatient. The following instructions were explained at length to patient and a copy will need to be provided to him upon discharge: 1). Schedule follow up with your primary care physician Dr. Dillan Hardin to take place in the next 7 to 10 days for further coordination of your health care and for a refill on your home medications. 2). Schedule follow up with Audio Visual Technician Dr. Ehsan Best to take place next week by calling his office at [phone]. You will need to follow up the results of the biopsies that were taken at the time of your Colonoscopy and to make sure that your colon infection is resolving. 3). Do not delay any further evaluation for your abdominal hernia. We recommend Surgeon Dr. Navdeep Lima. Please call his office at [phone]. Please make sure that you obtain referral to see him from your primary care physician Dr. Dillan Hardin. 4). You can keep reinfecting yourself and those around you from your colon infection. Therefore it is extremely important that after toileting that you wash your hands thoroughly with warm soap and water. 5). You must stop smoking as this will kill you. Please call [phone] for resources in your area to help you to stop smoking. 6). Schedule follow up with your Pain Management Physician for refills on your pain medications. 7). The following prescription should be filled at your pharmacy on your way home from the hospital: Vancomycin 125 mg, 1 tablet by mouth 4x/day (8 AM, 12 PM, 4 PM, 8 PM) until finished, Dispense #40, NO refills. 8). Please take care and be well. Paco Renteria D.O. Referrals: Paul Amezcua MD [Non-Staff] - Ehsan Best MD [Staff Provider] -
[2018-04-21 15:45] VITALS: BP 118/66; PULSE 83
--- NOTE | 2018-04-22 04:41 | CARD ---
APPROVED REPORT Date of service: 04/18/2018 Protocol: LEXISCAN Test Type: LEXISCAN STRESS Test Indications: PRE OP Medications: LIST Target HR: 143 bpm Resting ECG: NSR Resting Heart Rate: 104 bpm Resting Blood Pressure: 134/80mmHg submaximum (85%): 122 bpm TEST SUMMARY PREINFSNHYPERV.12:[id number]/80.9. INFUSIONDOSE 100:300.00.01.0108/.14. [id number]:040.00.01.0.134/80.0. PROCEDURE Pharmacologic stress testing was performed using 0.4mg per 5ml of regadenoson given intravenously over 7-10 seconds. POST EXERCISE Reason for Termination: Protocol Completed Target HR: No Max HR: 108 bpm 81% of Maximum Predicted HR: 143 bpm Exercise duration: 00:30 min:sec, 0 Stage Exercise capacity: 1.0METs Max Blood Pressure: 134/80mmHg Blood Pressure response to exercise: normal resting BP - appropriate response Heart Rate response to exercise: appropriate Chest Pain: No, none Angina index: 0 Arrhythmia: Yes, VPB'S ST Change: No, none Deviation: 0 mm INTERPRETATION Stress EKG Conclusion: NEGATIVE LEXISCAN STRESS TEST NORMAL BP RESPONSE TO LEXISCAN VPB'S NUCLEAR STUDIES TO BE READ SEPARATELY EXAM: Myocardial Perfusion STRESS/REST Imaging Protocol The imaging protocol used to acquire images was Stress Tc-99m/rest Tc-99m 1 day Stress Spect myocardial perfusion imaging was performed in supine position 45 minutes following the injection of 13.2 mCi of Tc-99 Myoview. Gated Rest Spect was performed 45 minutes after intravenous 32.6 mCi Tc-99 Myoview injection. The images were gated to evaluate regional wall motion and calculate ventricular ejection fraction.Images were reconstructed using backfilter projection method in short horizontal and verticle long axis. Spect slices were generated. RESTING DATA EDV45.03zpPM6.50L/min ESV10.00mlMyocardial Mass94.00g Av. Heart Fkqp254.00bpm EF78.00% STRESS DATA EDV49.24buPV6.50L/min ESV15.00mlMyocardial Yvat725.00g EF69.00% Regional WT score at stress:1.00 Regional WM score at stress:0.00 Summed WT score at stress:16.00 Av. Heart Awbj628.00bpmSummed WM score at stress:6.00 LV Perf. Quant 17 Seg. SSS0.00 17 Seg. SRS0.00 17 Seg. SDS0.00 Stress Defect Extent (% LAD)0.00Rest Defect Extent (% LAD)0.00Rev. Defect Extent (% LAD)0.00 Stress Defect Extent (% LCX)0.00Rest Defect Extent (% LCX)0.00Rev. Defect Extent (% LCX)0.00 Stress Defect Extent (% RCA)0.00Rest Defect Extent (% RCA)0.00Rev. Defect Extent (% RCA)0.00 Stress Defect Extent (% NICKY)0.00Rest Defect Extent (% NICKY)0.00Rev. Defect Extent (% NICKY)0.00 Other Information Quality:Good IMPRESSION Normal Myocardial Perfusion exercise stress study Left Ventricle LV Function:Left ventricle systolic function is normal. The Ejection Fraction is >55%. Metabolism/Perfusion There are no perfusion/metabolism defects. Conclusion 1. Normal Lexiscan Nuclear stress test. Normal EF.
== END 2018-04-21 12:36 | disposition home or self-care (01) | DRG 372 ==
LOC: C.ER 09:53 → C.5S 14:22 → C.9I 17:09 → C.5S 04-18 17:42
PROVIDERS: ADMIT Family Medicine; ATTEND Family Medicine
PROC: 30233N1 Transfusion of Nonautologous Red Blood Cells into Peripheral Vein, Percutaneous Approach (ICD-10-PCS; 2018-04-14)
PROC: 0DBN8ZX Excision of Sigmoid Colon, Via Natural or Artificial Opening Endoscopic, Diagnostic (ICD-10-PCS; principal; 2018-04-20 08:03)
DX: A04.72 Enterocolitis due to Clostridium difficile, not specified as recurrent (principal); K92.1 Melena; F11.20 Opioid dependence, uncomplicated; D50.0 Iron deficiency anemia secondary to blood loss (chronic); K63.5 Polyp of colon; K57.30 Diverticulosis of large intestine without perforation or abscess without bleeding; E86.0 Dehydration; K20.9 Esophagitis, unspecified; E78.5 Hyperlipidemia, unspecified; E87.6 Hypokalemia; I10 Essential (primary) hypertension; I25.10 Atherosclerotic heart disease of native coronary artery without angina pectoris; F17.210 Nicotine dependence, cigarettes, uncomplicated; K59.09 Other constipation; K43.9 Ventral hernia without obstruction or gangrene

== ENCOUNTER 2018-09-28 12:25 | Outpatient (CLI) | payer MEDICARE | END 2018-09-28 12:26 | disposition home or self-care (01) | LOC: C.CTH 12:25 | DX: R91.1 Solitary pulmonary nodule (principal); F17.210 Nicotine dependence, cigarettes, uncomplicated ==